=== PATIENT | male | born 1975 | race American Indian/Alaskan Native ===

== ENCOUNTER 2017-01-11 11:13 | Emergency (ER) | payer MEDICAID ==
[2017-01-11 11:13] VITALS: BMI 28.1
--- NOTE | 2017-01-11 12:54 | C.PDOC ---
History Of Present Illness 41 y/o male presents to ED with complaints of depressive feeling and stating he sniffed heroin yesterday and his head has been bothering him. Patient also reports drinking ETOH today and while walking in [place] felt "like he was going to have a seizure", but is unclear if he fell or not. Patient compliant with seizure medication. Patient denies Suicidal or Homicidal ideation, denies ah. No other complaints at this time Time Seen by Provider: 01/11/17 12:13 Chief Complaint (Nursing): Substance Abuse History Per: Patient History/Exam Limitations: no limitations Onset/Duration Of Symptoms: Days Past Medical History Vital Signs: Last Vital Signs Temp 98.3 F 01/11/17 16:45 Pulse 80 01/11/17 16:45 Resp 18 01/11/17 16:45 BP 117/76 01/11/17 16:45 Pulse Ox 95 01/11/17 19:03 - Medical History PMH: Anxiety, Bipolar Disorder, Depression, Personality Disorder, Pneumonia, Schizophrenia, Seizures - [facility] Procedures ALCOHOL DETOXIFICATION (10/23/14) CENTRAL VENOUS CATHETER PLACEMENT WITH GUIDANCE (08/27/14) CLOSURE SKIN & SUBCUTANEOUS NEC (01/02/14) DPT ADMINISTRATION (08/11/14) INDIVID PSYCHOTHERAP NEC (12/17/14) INJECT/INFUSE NEC (05/27/13) OTHER GROUP THERAPY (04/04/14) PSYCHIAT DRUG THERAP NEC (12/17/14) VENOUS PUNCTURE NEC (05/27/13) Family History: States: Unknown Family Hx - Social History Hx Tobacco Use: Yes Hx Alcohol Use: Yes Hx Substance Use: Yes - Immunization History Hx Tetanus Toxoid Vaccination: No Hx Influenza Vaccination: Yes (states ''in [place]'') Hx Pneumococcal Vaccination: No Review Of Systems Constitutional: Negative for: Fever, Chills, Weakness Gastrointestinal: Negative for: Nausea, Vomiting Neurological: Negative for: Weakness, Headache, Dizziness Psych: Negative for: Anxiety, Suicidal ideation Physical Exam - Physical Exam Appears: Non-toxic, No Acute Distress Skin: Normal Color, Warm Head: Atraumatic, Normacephalic Eye(s): bilateral: Normal Inspection, PERRL, EOMI Nose: Normal Oral Mucosa: Moist Neck: Normal ROM, No Midline Cervical Tenderness Chest: Symmetrical, No Deformity Cardiovascular: Rhythm Regular, No Murmur Respiratory: Normal Breath Sounds, No Rales, No Rhonchi, No Wheezing Gastrointestinal/Abdominal: Soft, No Tenderness, No Guarding, No Rebound Extremity: Normal ROM, Other (Scar on lower extremities noted, pt states "he used to cut himself") Neurological/Psych: Oriented x3, Normal Speech, Normal Cognition ED Course And Treatment O2 Sat by Pulse Oximetry: 95 - CT Scan/US Head CT/US Interpretation: FINDINGS: HEMORRHAGE: No intracranial hemorrhage. BRAIN : No mass effect or edema. 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 No change from 04/08/2015. 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 No change from prior CT. No evidence of acute infarct. No intracranial mass. VENTRICLES: No hydrocephalus. Cavum septum pellucidum. Mild ex vacuo dilatation atrium of left lateral ventricle, unchanged. No midline shift. CALVARIUM: Unremarkable. PARANASAL SINUSES: Unremarkable as visualized. No significant inflammatory changes. MASTOID AIR CELLS: Unremarkable as visualized. No inflammatory changes. OTHER FINDINGS: None. IMPRESSION: No intracranial mass, hemorrhage or evidence of acute infarct. 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 Possible old infarcts. Progress Note: pt easily aroused, now sts he hneeds tegretol. will give dose and d/c. pt with clear speech and steady gait. Medical Decision Making Medical Decision Makin:51pm CT scan head Check seizure levels Observation for Sobriety 401 pm pt resting comfortably, easily aroused, sts he feels much better. no seizure activity noted. meds levels sent out, will not keep atient for results will d/c. Disposition Counseled Patient/Family Regarding: Diagnosis, Need For Followup - Disposition Referrals: [facility] [Outside] [facility] [Outside] Disposition: HOME/ ROUTINE Disposition Time: 16:26 Condition: IMPROVED Additional Instructions: Follow up in Medical clinic as soon as possible. Take all medications as prescribed. Recommend detox to get off heroin and alcohol. Return to ER for any worsening symptoms. Instructions: Polysubstance Abuse (ED) Forms: General Discharge Instructions - Clinical Impression Clinical Impression: Drug abuse - PA / COMPLAINTS COORDINATOR / Resident Statement MD/DO has reviewed & agrees with the documentation as recorded. - Scribe Statement The provider has reviewed the documentation as recorded by the Renayibdonte Horn All medical record entries made by the Scribe were at my direction and personally dictated by me. I have reviewed the chart and agree that the record accurately reflects my personal performance of the history, physical exam, medical decision making, and the department course for this patient. I have also personally directed, reviewed, and agree with the discharge instructions and disposition.
--- NOTE | 2017-01-11 14:06 | CT ---
PROCEDURE: CT HEAD WITHOUT CONTRAST. HISTORY: headache COMPARISON: None available. TECHNIQUE: Axial computed tomography images were obtained through the head/brain without intravenous contrast. Radiation dose: Total exam DLP = 928.23 mGy-cm. This CT exam was performed using one or more of the following dose reduction techniques: Automated exposure control, adjustment of the mA and/or kV according to patient size, and/or use of iterative reconstruction technique. FINDINGS: HEMORRHAGE: No intracranial hemorrhage. BRAIN: No mass effect or edema. 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 No change from 04/08/2015. 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 No change from prior CT. No evidence of acute infarct. No intracranial mass. VENTRICLES: No hydrocephalus. Cavum septum pellucidum. Mild ex vacuo dilatation atrium of left lateral ventricle, unchanged. No midline shift. CALVARIUM: Unremarkable. PARANASAL SINUSES: Unremarkable as visualized. No significant inflammatory changes. MASTOID AIR CELLS: Unremarkable as visualized. No inflammatory changes. OTHER FINDINGS: None. IMPRESSION: No intracranial mass, hemorrhage or evidence of acute infarct. 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 Possible old infarcts.
[2017-01-11 16:45] VITALS: BP 117/76; PULSE 80; RESP 18; TEMP 98.3
[2017-01-11 19:03] VITALS: O2SAT 95
== END 2017-01-11 16:50 | disposition home or self-care (01) ==
LOC: C.ER 11:13
DX: F11.10 Opioid abuse, uncomplicated (principal)

== ENCOUNTER 2017-01-27 18:36 | Emergency (ER) | payer MEDICAID ==
[2017-01-27 18:38] VITALS: BMI 28.1
[2017-01-27 18:44] VITALS: PULSE 85; RESP 18; TEMP 98.4
[2017-01-27 19:33] VITALS: O2SAT 96
--- NOTE | 2017-01-27 19:53 | C.PDOC ---
History Of Present Illness 41 y/o male pmhx HTN, seizures presents to the ED demanding refills of medications. Denies chest pain, SOB, vomiting, headache, seizure, or any other complaints. Time Seen by Provider: 01/27/17 19:09 Chief Complaint (Nursing): Med Refill History Per: Patient History/Exam Limitations: no limitations Severity: None Recent travel outside of the [place]: No Past Medical History Reviewed: Historical Data, Nursing Documentation, Vital Signs Vital Signs: Last Vital Signs Temp 98.4 F 01/27/17 18:41 Pulse 85 01/27/17 18:41 Resp 18 01/27/17 18:41 BP 142/78 01/27/17 19:57 Pulse Ox 96 01/27/17 22:10 - Medical History PMH: Anxiety, Bipolar Disorder, Depression, Personality Disorder, Pneumonia, Schizophrenia, Seizures - [facility] Procedures ALCOHOL DETOXIFICATION (10/23/14) CENTRAL VENOUS CATHETER PLACEMENT WITH GUIDANCE (08/27/14) CLOSURE SKIN & SUBCUTANEOUS NEC (01/02/14) DPT ADMINISTRATION (08/11/14) INDIVID PSYCHOTHERAP NEC (12/17/14) INJECT/INFUSE NEC (05/27/13) OTHER GROUP THERAPY (04/04/14) PSYCHIAT DRUG THERAP NEC (12/17/14) VENOUS PUNCTURE NEC (05/27/13) Family History: States: Unknown Family Hx - Social History Hx Tobacco Use: Yes Hx Alcohol Use: Yes Hx Substance Use: Yes - Immunization History Hx Tetanus Toxoid Vaccination: No Hx Influenza Vaccination: Yes (states ''in [place]'') Hx Pneumococcal Vaccination: No Review Of Systems Except As Marked, All Systems Reviewed And Found Negative. Constitutional: Negative for: Fever Cardiovascular: Negative for: Chest Pain Respiratory: Negative for: Shortness of Breath Gastrointestinal: Negative for: Vomiting Neurological: Negative for: Headache Physical Exam - Physical Exam Appears: Non-toxic, No Acute Distress Skin: Warm, Dry, No Rash Head: Atraumatic, Normacephalic Neck: Normal, Normal ROM, Supple Chest: Symmetrical Cardiovascular: Rhythm Regular, No Murmur Respiratory: Normal Breath Sounds, No Rales, No Rhonchi, No Wheezing Extremity: Normal ROM Extremity: Bilateral: Atraumatic Neurological/Psych: Oriented x3, Normal Speech ED Course And Treatment O2 Sat by Pulse Oximetry: 96 (room air) Pulse Ox Interpretation: Normal Progress Note: Given dose tegratol and norvasc in ED. Instructed patient to follow up in clinic /PMD for medication management. Medical Decision Making Medical Decision Making: pt demanding refills of multiple medications; pt given a dose of tegretol and norvasc in ed and may go to clinic in morning for refills. Disposition Counseled Patient/Family Regarding: Diagnosis, Need For Followup - Disposition Referrals: [facility] [Outside] [facility] [Outside] Disposition: HOME/ ROUTINE Disposition Time: 19:53 Condition: STABLE Additional Instructions: Follow up in medical clinic tomorrow for further evaluation of your medication needs. Forms: General Discharge Instructions - Clinical Impression Clinical Impression: Review of medication, Hypertension, History of seizure - PA / HR GENERALIST / Resident Statement MD/DO has reviewed & agrees with the documentation as recorded. - Scribe Statement The provider has reviewed the documentation as recorded by the Renayibdonte Marinelli All medical record entries made by the Mickey were at my direction and personally dictated by me. I have reviewed the chart and agree that the record accurately reflects my personal performance of the history, physical exam, medical decision making, and the department course for this patient. I have also personally directed, reviewed, and agree with the discharge instructions and disposition.
[2017-01-27 19:58] VITALS: BP 142/78
== END 2017-01-27 19:57 | disposition home or self-care (01) ==
LOC: C.ER 18:36
DX: R56.9 Unspecified convulsions (principal); I10 Essential (primary) hypertension

== ENCOUNTER 2017-01-28 13:09 | Emergency (ER) | payer MEDICAID ==
[2017-01-28 13:09] VITALS: BMI 28.1
[2017-01-28 13:12] VITALS: BP 130/84; PULSE 77; RESP 16; TEMP 98.1; O2SAT 95
--- NOTE | 2017-01-28 14:24 | C.PDOC ---
History Of Present Illness 41 yr old male presents to the ER requesting refills of his seizure and blood pressure medicine. patient states he worried he might have another seizure or something else might happen due to his blood pressure. Patient is unsure to when he ran out of his medicine. Also states he was seen 3 weeks ago for a possible seizure. Patient reports he has an appointment at the clinic tomorrow morning at 9am. Denies fever, chills, chest pain, SOB, nausea, vomiting, abdominal pain, headache, dizziness, weakness or numbness. Time Seen by Provider: 01/28/17 13:33 Chief Complaint (Nursing): Med Refill History Per: Patient History/Exam Limitations: no limitations Onset/Duration Of Symptoms: Unknown Past Medical History Reviewed: Historical Data, Nursing Documentation, Vital Signs Vital Signs: Last Vital Signs Temp 98.1 F 01/28/17 13:11 Pulse 77 01/28/17 13:11 Resp 16 01/28/17 13:11 BP 130/84 01/28/17 13:11 Pulse Ox 95 01/28/17 15:15 - Medical History PMH: Anxiety, Bipolar Disorder, Depression, HTN, Personality Disorder, Pneumonia , Schizophrenia, Seizures - [facility] Procedures ALCOHOL DETOXIFICATION (10/23/14) CENTRAL VENOUS CATHETER PLACEMENT WITH GUIDANCE (08/27/14) CLOSURE SKIN & SUBCUTANEOUS NEC (01/02/14) DPT ADMINISTRATION (08/11/14) INDIVID PSYCHOTHERAP NEC (12/17/14) INJECT/INFUSE NEC (05/27/13) OTHER GROUP THERAPY (04/04/14) PSYCHIAT DRUG THERAP NEC (12/17/14) VENOUS PUNCTURE NEC (05/27/13) Family History: States: No Known Family Hx - Social History Hx Tobacco Use: Yes Hx Alcohol Use: Yes (denies) Hx Substance Use: Yes (denies) - Immunization History Hx Tetanus Toxoid Vaccination: No Hx Influenza Vaccination: Yes (states ''in [place]'') Hx Pneumococcal Vaccination: No Review Of Systems Except As Marked, All Systems Reviewed And Found Negative. Constitutional: Negative for: Fever, Chills Cardiovascular: Negative for: Chest Pain Respiratory: Negative for: Shortness of Breath Gastrointestinal: Negative for: Nausea, Vomiting, Abdominal Pain Neurological: Negative for: Weakness, Numbness, Headache, Dizziness Physical Exam - Physical Exam Appears: Well, Non-toxic, No Acute Distress Skin: Warm, Dry, No Rash Head: Atraumatic, Normacephalic Cardiovascular: Rhythm Regular, No Murmur Respiratory: Normal Breath Sounds, No Rales, No Rhonchi, No Stridor, No Wheezing Gastrointestinal/Abdominal: Soft, No Tenderness Extremity: Normal ROM, No Swelling Neurological/Psych: Oriented x3, Normal Speech, Normal Motor ED Course And Treatment O2 Sat by Pulse Oximetry: 95 Medical Decision Making Medical Decision Making: PLAN: * Phenobarbital PO * Tegretol PO * Lisinopril PO Disposition Counseled Patient/Family Regarding: Need For Followup - Disposition Referrals: [facility] [Outside] Disposition: HOME/ ROUTINE Disposition Time: 14:23 Condition: GOOD Additional Instructions: Keep apt with the clinic tomorrow Forms: General Discharge Instructions - Clinical Impression Clinical Impression: Medication refill, History of seizure - Scribe Statement The provider has reviewed the documentation as recorded by the Renayibe Vonnie Gallego Provider Attestation: All medical record entries made by the Scribe were at my direction and personally dictated by me. I have reviewed the chart and agree that the record accurately reflects my personal performance of the history, physical exam, medical decision making, and the department course for this patient. I have also personally directed, reviewed, and agree with the discharge instructions and disposition.
== END 2017-01-28 14:49 | disposition home or self-care (01) ==
LOC: C.ER 13:09
DX: Z76.0 Encounter for issue of repeat prescription (principal); R56.9 Unspecified convulsions

== ENCOUNTER 2017-01-29 16:00 | Emergency (ER) | payer MEDICAID ==
[2017-01-29 16:11] VITALS: TEMP 97.7
[2017-01-29] MEDS ORDERED: carBAMazepine Chew Tab 100 MG Chew Tab PO STA (16:36)
--- NOTE | 2017-01-29 16:42 | C.PDOC ---
Time Seen by Provider: 01/29/17 16:14 Chief Complaint (Nursing): Medical Clearance Past Medical History Vital Signs: Last Vital Signs Temp 97.7 F 01/29/17 16:22 Pulse 54 L 01/29/17 16:22 Resp 18 01/29/17 16:22 BP 164/99 H 01/29/17 16:22 Pulse Ox 100 01/29/17 16:22 - Medical History PMH: Anxiety, Bipolar Disorder, Depression, HTN, Personality Disorder, Pneumonia , Schizophrenia, Seizures - [facility] Procedures ALCOHOL DETOXIFICATION (10/23/14) CENTRAL VENOUS CATHETER PLACEMENT WITH GUIDANCE (08/27/14) CLOSURE SKIN & SUBCUTANEOUS NEC (01/02/14) DPT ADMINISTRATION (08/11/14) INDIVID PSYCHOTHERAP NEC (12/17/14) INJECT/INFUSE NEC (05/27/13) OTHER GROUP THERAPY (04/04/14) PSYCHIAT DRUG THERAP NEC (12/17/14) VENOUS PUNCTURE NEC (05/27/13) Family History: States: Unknown Family Hx - Social History Hx Tobacco Use: Yes Hx Alcohol Use: Yes (denies) Hx Substance Use: Yes (denies) - Immunization History Hx Tetanus Toxoid Vaccination: No Hx Influenza Vaccination: Yes (states ''in [place]'') Hx Pneumococcal Vaccination: No ED Course And Treatment O2 Sat by Pulse Oximetry: 100 Progress - Data Reviewed Data Reviewed: Old records Disposition Counseled Patient/Family Regarding: Diagnosis, Need For Followup - Disposition Referrals: [facility] [Outside] [facility] [Outside] Disposition: HOME/ ROUTINE Disposition Time: 16:41 Condition: GOOD Instructions: Medicine Refill (ED) - Clinical Impression Clinical Impression: Medication refill
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
[2017-01-29 17:06] VITALS: BP 142/82; PULSE 69; RESP 17; O2SAT 98
== END 2017-01-29 17:07 | disposition home or self-care (01) ==
LOC: C.ER 16:00
DX: Z76.0 Encounter for issue of repeat prescription (principal)

== ENCOUNTER 2017-02-22 21:50 | Emergency (ER) | payer MEDICAID ==
[2017-02-22 21:50] VITALS: BMI 27.4
[2017-02-22 22:04] VITALS: RESP 16
[2017-02-23 01:51] LABS: BASO % 0.5 % (0.0-2.0); EOS # 0.1 K/uL (0.0-0.7); EOS % 2.4 % (0.0-4.0); HEMOGLOBIN 13.1 g/dL (12.0-18.0); LYMPH # 2.2 K/uL (1.0-4.3); LYMPH % 39.6 % (20.0-40.0); MEAN CELL VOLUME 90.3 fL (80.0-94.0); MEAN CORPUSCULAR HEMOGLOBIN 29.4 pg (27.0-31.0); MEAN CORPUSCULAR HGB CONC 32.5 g/dL (33.0-37.0); MEAN PLATELET VOLUME 8.9 fL (7.2-11.7); MONO # 0.6 K/uL (0.0-0.8); MONO % 10.3 % (0.0-10.0); NEUT # 2.6 K/uL (1.8-7.0); NEUT % 47.2 % (50.0-75.0); NRBC % 0.1 % (0.0-2.0); RBC 4.47 Mil/uL (4.40-5.90); WHITE BLOOD COUNT 5.6 K/uL (4.8-10.8)
[2017-02-23 02:00] LABS: URINE BILIRUBIN NEGATIVE (NEGATIVE); URINE BLOOD NEGATIVE (NEGATIVE); URINE CLARITY Clear (Clear); URINE COLOR Yellow (YELLOW); URINE GLUCOSE (UA) NORMAL (Normal); URINE HYALINE CAST 0-2 /lpf (0-2); URINE LEUKOCYTE ESTERASE NEG Leu/uL (Negative); URINE NITRATE NEGATIVE (NEGATIVE); URINE PROTEIN NEGATIVE (NEGATIVE); URINE UROBILINOGEN NORMAL mg/dL (0.2-1.0)
[2017-02-23 02:03] LABS: ALBUMIN 4.3 g/dL (3.5-5.0)
[2017-02-23 02:06] LABS: ALB/GLOB RATIO 1.2 (1.0-2.1); ALT/SGPT 24 U/L (21-72); AST/SGOT 23 U/L (17-59); BLOOD UREA NITROGEN 8 mg/dL (9-20); GFR AFRICAN-AMERICAN > 60; GFR NON-AFRICAN AMERICAN > 60
[2017-02-23 02:07] LABS: CALCIUM 8.6 mg/dl (8.6-10.4)
[2017-02-23 02:08] LABS: BENZODIAZEPINES, UR NEGATIVE (NEGATIVE)
[2017-02-23 02:13] LABS: PHENCYCLIDINE, UR NEGATIVE (NEGATIVE)
[2017-02-23 02:18] LABS: BARBITURATES, UR POSITIVE (NEGATIVE); OPIATES, UR POSITIVE (NEGATIVE)
--- NOTE | 2017-02-23 05:13 | C.PDOC ---
History Of Present Illness 41 year old male presents to the ED with complaints of depression and anxiety, seeking psychiatric evaluation and requesting detox. Patient admits to heroin abuse and he recently quit but restarted today. He denies any physical complaints at this time. Time Seen by Provider: 02/22/17 22:13 Chief Complaint (Nursing): Psychiatric Evaluation History Per: Patient History/Exam Limitations: no limitations Onset/Duration Of Symptoms: Hrs Current Symptoms Are (Timing): Still Present Suicide/Self Injury Attempted (Context): None Associated Symptoms: Anxiety, Depression. denies: Suicidal Thoughts, Suicidal Plan Involuntary Hold By: None Recent travel outside of the [place]: No Past Medical History Reviewed: Historical Data, Nursing Documentation, Vital Signs Vital Signs: Last Vital Signs Temp 97.6 F 02/23/17 05:17 Pulse 59 L 02/23/17 05:17 Resp 16 02/23/17 05:17 BP 130/86 02/23/17 05:17 Pulse Ox 98 02/23/17 05:17 - Medical History PMH: Anxiety, Bipolar Disorder, Depression, HTN, Personality Disorder, Pneumonia , Schizophrenia, Seizures - [facility] Procedures ALCOHOL DETOXIFICATION (10/23/14) CENTRAL VENOUS CATHETER PLACEMENT WITH GUIDANCE (08/27/14) CLOSURE SKIN & SUBCUTANEOUS NEC (01/02/14) DPT ADMINISTRATION (08/11/14) INDIVID PSYCHOTHERAP NEC (12/17/14) INJECT/INFUSE NEC (05/27/13) OTHER GROUP THERAPY (04/04/14) PSYCHIAT DRUG THERAP NEC (12/17/14) VENOUS PUNCTURE NEC (05/27/13) Family History: States: Unknown Family Hx - Social History Hx Tobacco Use: Yes Hx Alcohol Use: Yes Hx Substance Use: Yes (last use at 1700 today) - Immunization History Hx Tetanus Toxoid Vaccination: No Hx Influenza Vaccination: Yes (states ''in [place]'') Hx Pneumococcal Vaccination: No Review Of Systems Constitutional: Negative for: Fever, Chills Cardiovascular: Negative for: Chest Pain, Palpitations Respiratory: Negative for: Cough, Shortness of Breath Gastrointestinal: Negative for: Nausea, Vomiting, Abdominal Pain, Diarrhea Neurological: Negative for: Headache Psych: Positive for: Anxiety, Depression. Negative for: Suicidal ideation Physical Exam - Physical Exam Appears: Non-toxic, No Acute Distress Skin: Warm, Dry Head: Atraumatic Eye(s): bilateral: Normal Inspection, PERRL, EOMI Oral Mucosa: Moist Neck: Supple Chest: Symmetrical, No Deformity Cardiovascular: Rhythm Regular Respiratory: No Rales, No Rhonchi, No Stridor, No Wheezing Gastrointestinal/Abdominal: Soft, No Tenderness, No Distention, No Guarding, No Rebound Extremity: Normal ROM, No Tenderness Neurological/Psych: Oriented x3 ED Course And Treatment - Laboratory Results Result Diagrams: 02/23/17 01:40 02/23/17 01:40 Lab Interpretation: Abnormal (tox + opiates, Stefany's (phenobarb)) O2 Sat by Pulse Oximetry: 96 (room air ) Pulse Ox Interpretation: Normal Medical Decision Making Medical Decision Making: chronic heroine abuse, no detox beds available malingering- many recent and local ED evals for same. Disposition Doctor Will See Patient In The: Office Counseled Patient/Family Regarding: Studies Performed, Diagnosis - Disposition Referrals: [facility] [Outside] [facility] [Outside] [facility] [Outside] Disposition: HOME/ ROUTINE Disposition Time: 05:12 Condition: GOOD Additional Instructions: seek heroine detox programs. Call for availability. Instructions: Narcotic Abuse (ED) - Clinical Impression Clinical Impression: Heroin abuse - Scribe Statement The provider has reviewed the documentation as recorded by the Scribe Judie Parisi All medical record entries made by the Scribe were at my direction and personally dictated by me. I have reviewed the chart and agree that the record accurately reflects my personal performance of the history, physical exam, medical decision making, and the department course for this patient. I have also personally directed, reviewed, and agree with the discharge instructions and disposition.
[2017-02-23 05:17] VITALS: BP 130/86; PULSE 59; TEMP 97.6
[2017-02-23 05:31] VITALS: O2SAT 96
== END 2017-02-23 05:36 | disposition home or self-care (01) ==
LOC: C.ER 21:50
DX: F11.10 Opioid abuse, uncomplicated (principal)

== ENCOUNTER 2017-02-27 16:47 | Inpatient (IN) | payer MEDICAID ==
[2017-02-27 16:47] VITALS: BMI 27.4
--- NOTE | 2017-02-27 17:33 | C.PDOC ---
History Of Present Illness 41-year-old male, presents to the emergency department requesting psychiatric evaluation. Patient has a Hx of IV heroin abuse and depression. States he has been experiencing increased depression over the past few days, and he started "cutting again." Patient denies nausea/vomiting. States he used two bags of Heroin today. Time Seen by Provider: 02/27/17 16:59 Chief Complaint (Nursing): Substance Abuse History Per: Patient History/Exam Limitations: no limitations Onset/Duration Of Symptoms: Days Current Symptoms Are (Timing): Still Present Past Medical History Reviewed: Historical Data, Nursing Documentation, Vital Signs Vital Signs: Last Vital Signs Temp 100.1 F H 02/27/17 16:57 Pulse 104 H 02/27/17 16:57 Resp 18 02/27/17 16:57 BP 109/64 02/27/17 16:57 Pulse Ox 93 L 02/27/17 18:03 - Medical History PMH: Anxiety, Bipolar Disorder, Depression, HTN, Personality Disorder, Pneumonia , Schizophrenia, Seizures - [facility] Procedures ALCOHOL DETOXIFICATION (10/23/14) CENTRAL VENOUS CATHETER PLACEMENT WITH GUIDANCE (08/27/14) CLOSURE SKIN & SUBCUTANEOUS NEC (01/02/14) DPT ADMINISTRATION (08/11/14) INDIVID PSYCHOTHERAP NEC (12/17/14) INJECT/INFUSE NEC (05/27/13) OTHER GROUP THERAPY (04/04/14) PSYCHIAT DRUG THERAP NEC (12/17/14) VENOUS PUNCTURE NEC (05/27/13) Family History: States: No Known Family Hx - Social History Hx Tobacco Use: Yes Hx Alcohol Use: Yes Hx Substance Use: Yes (HEROIN, IV DAILY) - Immunization History Hx Tetanus Toxoid Vaccination: No Hx Influenza Vaccination: Yes (states ''in [place]'') Hx Pneumococcal Vaccination: No Review Of Systems Except As Marked, All Systems Reviewed And Found Negative. Constitutional: Negative for: Fever, Chills Cardiovascular: Negative for: Chest Pain, Palpitations Respiratory: Negative for: Shortness of Breath Gastrointestinal: Negative for: Nausea, Vomiting Musculoskeletal: Negative for: Back Pain Neurological: Negative for: Weakness, Numbness Psych: Positive for: Depression, Suicidal ideation Physical Exam - Physical Exam Appears: Non-toxic, No Acute Distress Skin: Warm, Dry, No Rash, Other (scars to B/L anterior forearms.) Eye(s): bilateral: Normal Inspection, PERRL Nose: Normal Oral Mucosa: Moist Lips: Normal Appearing Neck: Normal ROM Cardiovascular: Rhythm Regular, No Murmur Respiratory: Normal Breath Sounds, No Accessory Muscle Use Extremity: Normal ROM Neurological/Psych: Oriented x3, Normal Speech ED Course And Treatment - Laboratory Results Result Diagrams: 02/27/17 17:46 02/27/17 17:46 Lab Interpretation: No Acute Changes O2 Sat by Pulse Oximetry: 93 Disposition - Disposition Disposition Time: 00:54 Condition: STABLE - Clinical Impression Clinical Impression: Substance abuse, Depression - Scribe Statement The provider has reviewed the documentation as recorded by the Scribe (Nima Novak) All medical record entries made by the Scribe were at my direction and personally dictated by me. I have reviewed the chart and agree that the record accurately reflects my personal performance of the history, physical exam, medical decision making, and the department course for this patient. I have also personally directed, reviewed, and agree with the discharge instructions and disposition. Physician Patient Turnover Patient Signed Over To: Jg Singh Handoff Comments: pending UDS and crisis evaluation.
[2017-02-27 17:50] LABS: HEMOGLOBIN 12.7 g/dL (12.0-18.0); LYMPH # 1.4 K/uL (1.0-4.3); MONO # 0.5 K/uL (0.0-0.8)
[2017-02-27 17:57] LABS: ALBUMIN 4.3 g/dL (3.5-5.0)
[2017-02-27 18:00] LABS: ALB/GLOB RATIO 1.2 (1.0-2.1); ALT/SGPT 25 U/L (21-72); AST/SGOT 24 U/L (17-59); BLOOD UREA NITROGEN 13 mg/dL (9-20); GFR AFRICAN-AMERICAN 57; GFR NON-AFRICAN AMERICAN 47
[2017-02-27 18:36] LABS: BASO # 0.1 K/uL (0.0-0.2); BASO % 0.9 % (0.0-2.0); EOS # 0.1 K/uL (0.0-0.7); LYMPH % 19.2 % (20.0-40.0); MEAN CELL VOLUME 88.9 fL (80.0-94.0); MEAN CORPUSCULAR HEMOGLOBIN 29.4 pg (27.0-31.0); MEAN PLATELET VOLUME 9.3 fL (7.2-11.7); MONO % 6.7 % (0.0-10.0); NEUT # 5.1 K/uL (1.8-7.0); NEUT % 71.2 % (50.0-75.0); RBC 4.33 Mil/uL (4.40-5.90); WHITE BLOOD COUNT 7.1 K/uL (4.8-10.8)
[2017-02-28 01:50] LABS: SQUAMOUS EPITHIAL < 1 /hpf (0-5); URINE BILIRUBIN NEGATIVE (NEGATIVE); URINE BLOOD 3+ (NEGATIVE); URINE CLARITY Hazy (Clear); URINE COLOR Amber (YELLOW); URINE GLUCOSE (UA) NORMAL (Normal); URINE HYALINE CAST 0-2 /lpf (0-2); URINE LEUKOCYTE ESTERASE NEG Leu/uL (Negative); URINE NITRATE NEGATIVE (NEGATIVE); URINE PROTEIN 2+ mg/dL (NEGATIVE)
[2017-02-28 01:53] LABS: BENZODIAZEPINES, UR NEGATIVE (NEGATIVE)
[2017-02-28 01:56] LABS: PHENCYCLIDINE, UR NEGATIVE (NEGATIVE)
[2017-02-28 02:03] LABS: BARBITURATES, UR POSITIVE (NEGATIVE); OPIATES, UR POSITIVE (NEGATIVE)
[2017-02-28 02:42] VITALS: O2SAT 100
--- NOTE | 2017-02-28 13:54 | PCM.PSYCH ---
Initial Psychiatric Evaluation - Initial Psychiatric Evaluation Type of Admission: Voluntary Legal Status: Capacity Chief Complaint (in patient's own words): I was feeling depressed and suicidal.' History of Present Illness and Precipitating Events: Pt is a 41 year old male who was brought in by EMS for depression, and suicidal ideation with plans to cut himself. Patient remained disorganized and internally preoccupied throughout the interview. He remained a poor historian. He was superficially cooperative but guarded about the details. He states that he has a history of cutting, and "feels like doing it again." Pt is unable to articulate the last episode of cutting. Pt states he recently moved back to [place] from [place], [place], to see his four children "who want nothing to do with me," and residing with his cousin. Pt states he has a history of schizophrenia and is unable to state when his last hospitalization was. Patient appeared to have severe thought blocking and he appeared disheveled and unkempt. Patient reports depressed mood, feelings of hopelessness and helplessness. At times he became irritable and agitated during the interview, stating "I don't have a drug problem, I'm not a drug addict," but reports using heroin and alcohol yesterday. Pt states he sniffed 1 bag of heroin and drank 1 can of beer. patient reports history of voices telling him to kill himself in the past and reports history of seeing shadows. However remained confused about hearing any voices now due to the thought blocking. He remained delusional and paranoid throughout the interview. PMH History of seizures, HTN Current Medications: Active Medications Generic Name Dose Route Start Last Admin Trade Name Nayan PRN Reason Stop Dose Admin Amlodipine Besylate 5 mg 02/28/17 14:00 Norvasc PO DAILY [facility] Carbamazepine 200 mg 02/28/17 14:00 Tegretol PO Q12 [facility] Furosemide 20 mg 02/28/17 14:00 Lasix PO DAILY [facility] Home Med 64.8 mg 02/28/17 18:00 Phenobarbital [Phenobarbital Tab] PO BID [facility] Lisinopril 20 mg 02/28/17 14:00 Zestril PO DAILY [facility] Past Psychiatric History - Past Psychiatric History Previous Treatment History: Inpatient Pertinent Medical Hx (Current Medical&Sleep Prob, Allergies): Allergies Allergy/AdvReac Type Severity Reaction Status Date / Time haloperidol [From Haldol] AdvReac NAUSEA Verified 02/22/17 22:04 Furosemide [Lasix] 20 mg PO DAILY #23 01/30/17 Lisinopril [Zestril] 20 mg PO DAILY #23 01/30/17 Phenobarbital [PHENobarbital Tab] 64.8 mg PO BID #46 01/30/17 amLODIPine [Norvasc] 5 mg PO DAILY #25 01/30/17 carBAMazepine [TEGretol] 200 mg PO Q12 #46 01/30/17 Review of Systems - Review of Systems All systems: reviewed and no additional remarkable complaints except - Psychiatric Psychiatric: Anxiety, Depression, Hopelessness, Irritability, Paranoia, Suicidal Ideation Mental Status Examination - Personal Presentation Personal Presentation: Looks older than stated age - Affect Affect: Constricted, Depressed - Motor Activity Motor Activity: Psychomotor Agitation - Reliability in Providing Information Reliability in Providing Information: Poor, due to alteration in thoughts, Poor , due to altered mood - Speech Speech: Disorganized - Mood Mood: Depressed, Anxious - Formal Thought Process Formal Thought Process: Hallucinations, Delusions, Paranoia, Loosening of associations - Hallucinations/Delusions Delusions: Persecution - Obsessions/Compulsions Obsessions: No Compulsions: No - Cognitive Functions Orientation: Person, Place, Situation, Time Sensorium: Alert Attention/Concentration: Attentive Abstract Thinking: [place] Estimate of Intelligence: Below average Judgement: Imparied, as evidence by: Poor judgement, Imparied, as evidence by: Lack of insight into illness - Risk Risk: Suicidal, Diminished functioning - Strength & Assets Inventory Strength & Assets Inventory: Family support DSM 5 DX - DSM 5 DSM 5 Diagnosis: Schizoaffective disorder depressed type Opiate use disorder moderate - Recommended/Plan of Treatment Treatment Recommendations and Plan of Treatment: Schizoaffective disorder depressed type CBT Psychoeducation Supportive therapy, group therapy, individual therapy Prolixin 5 mg by mouth daily at bedtime Zoloft 50 mg daily Trazodone 50 mg by mouth daily at bedtime Opioid use disorder severe CBT Psychoeducation Supportive therapy, individual therapy Use MD for abstinence HTN Continue prescribed medications (Amlodipine, Lasix, Lisinopril) monitor signs and symptoms H/O Seizures Continue prescribed medications (Carbamazapine 200 mg by mouth twice a day) monitor signs and symptoms - Smoking Cessation Smoking Cessation Initiated: No
[2017-03-01 08:21] VITALS: RESP 18
--- NOTE | 2017-03-01 10:38 | PCM.PYCHPN ---
Psychiatric Progress Note - Psychiatric Progress Note Patient seen today, length of contact: 17 min Patient Chief Complaint: I m feeling better.' Problems Identified/Issues Discussed: Patient seen and evaluated, chart reviewed and discussed with the nurse. Patient remained irritable and agitated. He appeared somewhat disorganized and remained internally preoccupied to get discharged. He continued pacing back and forth in the hallways. He appeared to have poor insight and poor judgment. He was yelling and cursing at the staff and denied any feelings of hopelessness and helplessness. He also denied any SI/HI. He is taking medication and denied any side effects. Supportive therapy and psychoeducation were given. Medication Change: Yes (start depakote) Medical Record Reviewed: Yes Mental Status Examination - Cognitive Function Orientation: Person, Place, Situation, Time Memory: Intact Attention: Poor Concentration: Poor Association: Loose Fund of Knowledge: Poor - Mood Mood: Anxious - Affect Affect: Broad - Speech Speech: Pressured - Formal Thought Process Formal Thought Process: Paranoia, Loosening of associations - Suicidal Ideation Suicidal Ideation: No - Homicidal Ideation Homicidal Ideation: No Goal/Treatment Plan - Goal/Treatment Plan Need for Continued Stay: Discharge may exacerbated symptoms, Severe functional impairment Progress Toward Problem(s) and Goals/Treatment Plan: Schizoaffective disorder depressed type CBT Psychoeducation Supportive therapy, group therapy, individual therapy Prolixin 10 mg by mouth daily at bedtime Zoloft 50 mg daily Trazodone 50 mg by mouth daily at bedtime Klinopin 1 mg pO BID Carbamazapine 400 mg by mouth twice a day Opioid use disorder severe CBT Psychoeducation Supportive therapy, individual therapy Use OK for abstinence HTN Continue prescribed medications (Amlodipine, Lasix, Lisinopril) monitor signs and symptoms H/O Seizures Continue prescribed medications (Carbamazapine 400 mg by mouth twice a day) monitor signs and symptoms - Smoking Cessation Smoking Cessation Initiated: No
[2017-03-02 09:08] VITALS: BP 122/90; PULSE 67; TEMP 98.4
--- NOTE | 2017-03-02 09:34 | PCM.PYCHDC ---
Mental Status Examination - Mental Status Examination Orientation: Person, Place, Situation, Time Memory: Impaired Mood: Other (irate, labile a little) Affect: Other (labile, odd) Speech: Loud Attention: Poor Concentration: Poor Association: Loose Fund of Knowledge: Poor Formal Thought Process: Paranoia Suicidal Ideation: No Current Homicidal Ideation?: No Discharge Summary - Discharge Note Reason for Hospitalization: Acute psychosis Consultations:: List each consultation separately and include: 1. Reason for request. 2. Findings. 3. Follow-up Summary of Hospital Course include:: 1. Description of specific treatment plan utilized for patients during their course of treatmen. 2. Summarize the time- course for resolution of acute symptoms and/or regressed behaviors. 3. Describe issues identified and worked on during hospitalization. 4. Describe medication utilized. 5. Describe medical problems identified and treated. 6. Reassessment of suicide risk Summary of Hospital Course: The pt was admitted and started on treatment with psychotherapy, support, psychoeducation and medications. The pt attended some groups and activities, as well as milieu therapy. All the risks and benefits of medications are discussed and the patient understood and agreed. However, he remained with poor insight and demanded to leave a lot. The pt improved somewhat with the treatments provided. After care discussed with the patient. He only wanted to return to [place] and it is confirmed with his cousin Risks of leaving early discussed and he understood but insisted. - Final Diagnosis (DSM 5) Condition upon Discharge: IMPROVED DSM 5: Schizoaffective disorder mixed type Opioid use disorder moderate Disposition: HOME/ ROUTINE Follow-up Treatment Plan: Continue below medications after discharge. Follow after care plan as discussed. Use relapse prevention skills Return to ER or call 911 if suicidal, homicidal or symptoms relapse. Stay away from stress, alcohol and drugs. See primary doctor once a year. Prescriptions/Medication Reconciliation: amLODIPine [Norvasc] 5 mg PO DAILY #30 tab Benztropine [Cogentin] 1 mg PO BID #60 tab carBAMazepine [Tegretol] 400 mg PO Q12 #60 tab fluPHENAZine [Prolixin] 10 mg PO BID #60 tab Furosemide [Lasix] 20 mg PO DAILY #30 tab Lisinopril [Zestril] 20 mg PO DAILY #30 tab Phenobarbital [PHENobarbital Tab] 64.8 mg PO BID #60 tab Sertraline [Zoloft] 50 mg PO DAILY #30 tab traZODone [Desyrel] 50 mg PO HS #30 tab
== END 2017-03-02 10:40 | disposition home or self-care (01) | DRG 430 ==
LOC: C.ER 16:47 → C.5E 02-28 02:26
PROVIDERS: ADMIT Psychiatry & Neurology Psychiatry; ATTEND Psychiatry & Neurology Psychiatry
PROC: GZ3ZZZZ Medication Management (ICD-10-PCS; principal; 2017-02-28)
PROC: HZ89ZZZ Medication Management for Substance Abuse Treatment, Other Replacement Medication (ICD-10-PCS; 2017-02-28)
PROC: GZHZZZZ Group Psychotherapy (ICD-10-PCS; 2017-02-28)
PROC: GZ56ZZZ Individual Psychotherapy, Supportive (ICD-10-PCS; 2017-02-28)
DX: F25.1 Schizoaffective disorder, depressive type (principal); F11.10 Opioid abuse, uncomplicated; R45.851 Suicidal ideations; G40.909 Epilepsy, unspecified, not intractable, without status epilepticus; I10 Essential (primary) hypertension

== ENCOUNTER 2017-03-28 20:01 | Emergency (ER) | payer MEDICAID ==
[2017-03-28 20:02] VITALS: BMI 27.4
--- NOTE | 2017-03-28 21:34 | C.PDOC ---
History Of Present Illness A 41 y/o M c/o depression, anxiety. States he has thoughts of cutting himself. Admits to using heroin today. Denies any somatic complaints at this time. Time Seen by Provider: 03/28/17 21:33 Chief Complaint (Nursing): Psychiatric Evaluation History Per: Patient History/Exam Limitations: no limitations Onset/Duration Of Symptoms: Hrs Current Symptoms Are (Timing): Still Present Suicide/Self Injury Attempted (Context): None Modifying Factor(s): Other (Heroin) Severity: Mild Pain Scale Rating Of: 2 Associated Symptoms: Anxiety, Depression, Suicidal Thoughts. denies: Suicidal Plan Involuntary Hold By: None Recent travel outside of the [place]: No Additional History Per: Patient Past Medical History Reviewed: Historical Data, Nursing Documentation, Vital Signs Vital Signs: Last Vital Signs Temp 98.1 F 03/29/17 04:50 Pulse 56 L 03/29/17 04:50 Resp 16 03/29/17 04:50 BP 133/88 03/29/17 04:50 Pulse Ox 96 03/29/17 06:11 - Medical History PMH: Anxiety, Bipolar Disorder, Depression, HTN, Personality Disorder, Pneumonia , Schizophrenia, Seizures Denies: Diabetes, Hepatitis, HIV, Chronic Kidney Disease, Sexually Transmitted Disease - [facility] Procedures ALCOHOL DETOXIFICATION (10/23/14) CENTRAL VENOUS CATHETER PLACEMENT WITH GUIDANCE (08/27/14) CLOSURE SKIN & SUBCUTANEOUS NEC (01/02/14) DPT ADMINISTRATION (08/11/14) GROUP PSYCHOTHERAPY (02/28/17) INDIVID PSYCHOTHERAP NEC (12/17/14) INDIVIDUAL PSYCHOTHERAPY, SUPPORTIVE (02/28/17) INJECT/INFUSE NEC (05/27/13) MEDICATION MANAGEMENT (02/28/17) MEDS MGMT FOR SUBSTANCE ABUSE TREATMENT, OTH REPL MED (02/28/17) OTHER GROUP THERAPY (04/04/14) PSYCHIAT DRUG THERAP NEC (12/17/14) VENOUS PUNCTURE NEC (05/27/13) Family History: States: No Known Family Hx - Social History Hx Tobacco Use: Yes Hx Alcohol Use: Yes Hx Substance Use: Yes - Immunization History Hx Tetanus Toxoid Vaccination: No Hx Influenza Vaccination: Yes (states ''in [place]'') Hx Pneumococcal Vaccination: No Review Of Systems Constitutional: Negative for: Fever, Chills, Sweats Cardiovascular: Negative for: Chest Pain, Palpitations, Light Headedness Respiratory: Negative for: Cough, Shortness of Breath Gastrointestinal: Negative for: Nausea, Vomiting Musculoskeletal: Negative for: Back Pain Skin: Negative for: Rash Neurological: Negative for: Dizziness Psych: Positive for: Anxiety, Depression Physical Exam - Physical Exam Appears: Non-toxic, No Acute Distress Skin: Warm, Dry Head: Normacephalic Neck: Supple Chest: Symmetrical Cardiovascular: Rhythm Regular Respiratory: No Rales, No Rhonchi, No Wheezing Gastrointestinal/Abdominal: Soft, No Tenderness Back: No CVA Tenderness Neurological/Psych: Oriented x3 (Awake and alert), Normal Speech, Normal Cognition Gait: Steady ED Course And Treatment - Laboratory Results Result Diagrams: 03/29/17 05:11 03/28/17 01:50 ECG: Interpreted By Me, Viewed By Me ECG Rhythm: Sinus Rhythm (58), Nonspecific Changes O2 Sat by Pulse Oximetry: 96 (RA) Pulse Ox Interpretation: Normal - Radiology CXR: Interpreted by Me, Viewed By Me CXR Interpretation: No: Infiltrates, Fracture, Pnemothorax Progress Note: pt became agitated and combtive requiring 4 point restrains and medication for pt's safety as well the safety of the staff. pt is medically clared for transfet to [place] Disposition Counseled Patient/Family Regarding: Studies Performed, Diagnosis - Disposition Disposition: OTHER INSTITUTION Disposition Time: 21:33 Condition: FAIR Additional Instructions: Pt accepted in transfer to [facility] facility by dr Gila Parra Forms: [facility] (Upper Sorbian) - Clinical Impression Clinical Impression: Heroin abuse, Depression - Scribe Statement The provider has reviewed the documentation as recorded by the Renayibdonte ocasio All medical record entries made by the Scribdonte were at my direction and personally dictated by me. I have reviewed the chart and agree that the record accurately reflects my personal performance of the history, physical exam, medical decision making, and the department course for this patient. I have also personally directed, reviewed, and agree with the discharge instructions and disposition. Physician Patient Turnover Patient Signed Over To: Monica Smith Handoff Comments: pending transfer to [facility] psych
[2017-03-29 02:06] LABS: ALBUMIN 3.6 g/dL (3.5-5.0)
[2017-03-29 02:09] LABS: ALB/GLOB RATIO 1.2 (1.0-2.1); ALT/SGPT 31 U/L (21-72); AST/SGOT 24 U/L (17-59); BLOOD UREA NITROGEN 8 mg/dL (9-20); CALCIUM 8.4 mg/dl (8.6-10.4); GFR AFRICAN-AMERICAN > 60; GFR NON-AFRICAN AMERICAN > 60
[2017-03-29] MEDS ORDERED: DiphenhydrAMINE 50 mg/ml Inj IM STA (02:27)
[2017-03-29] MEDS ORDERED: DiphenhydrAMINE 50 mg/ml Inj ONE (02:29)
[2017-03-29 03:23] LABS: URINE BILIRUBIN NEGATIVE (NEGATIVE); URINE BLOOD NEGATIVE (NEGATIVE); URINE CLARITY Clear (Clear); URINE COLOR Yellow (YELLOW); URINE GLUCOSE (UA) NORMAL (Normal); URINE LEUKOCYTE ESTERASE NEG Leu/uL (Negative); URINE NITRATE NEGATIVE (NEGATIVE); URINE PROTEIN NEGATIVE (NEGATIVE); URINE UROBILINOGEN NORMAL mg/dL (0.2-1.0)
[2017-03-29 03:31] LABS: BARBITURATES, UR POSITIVE (NEGATIVE); BENZODIAZEPINES, UR NEGATIVE (NEGATIVE)
[2017-03-29 03:35] LABS: OPIATES, UR POSITIVE (NEGATIVE); PHENCYCLIDINE, UR NEGATIVE (NEGATIVE)
[2017-03-29 04:51] VITALS: PULSE 56
[2017-03-29 05:15] LABS: BASO % 0.9 % (0.0-2.0); EOS # 0.5 K/uL (0.0-0.7); EOS % 9.2 % (0.0-4.0); HEMOGLOBIN 12.3 g/dL (12.0-18.0); LYMPH % 37.1 % (20.0-40.0); MEAN CELL VOLUME 88.1 fL (80.0-94.0); MEAN CORPUSCULAR HEMOGLOBIN 29.5 pg (27.0-31.0); MEAN CORPUSCULAR HGB CONC 33.5 g/dL (33.0-37.0); MEAN PLATELET VOLUME 9.5 fL (7.2-11.7); MONO # 0.5 K/uL (0.0-0.8); MONO % 9.7 % (0.0-10.0); NEUT # 2.3 K/uL (1.8-7.0); NEUT % 43.1 % (50.0-75.0); NRBC % 0.1 % (0.0-2.0); RBC 4.18 Mil/uL (4.40-5.90); RED CELL DISTRIBUTION WIDTH 13.1 % (11.5-14.5); WHITE BLOOD COUNT 5.4 K/uL (4.8-10.8)
[2017-03-29 06:24] VITALS: BP 134/90; RESP 14; TEMP 97.1; O2SAT 99
--- NOTE | 2017-03-29 08:51 | RAD ---
HISTORY: r/o infiltrate bed 8a COMPARISON: Chest radiograph 05/06/2015. FINDINGS: LUNGS: No active pulmonary disease. PLEURA: No significant pleural effusion identified, no pneumothorax apparent. CARDIOVASCULAR: Cardiac silhouette is likely technically magnified with borderline cardiomegaly unlikely but not completely excluded. OSSEOUS STRUCTURES: No significant abnormalities. VISUALIZED UPPER ABDOMEN: Normal. OTHER FINDINGS: None. IMPRESSION: No acute infiltrate or pleural effusion. Cardiac silhouette is likely technically magnified digital technique. Mild intrinsic prominence of cardiac silhouette not completely excluded. Clinically correlate.
--- NOTE | 2017-03-29 19:07 | CARD ---
APPROVED REPORT EKG Measurement Heart [id number] <Conclusion> Sinus bradycardia Septal infarct, age undetermined Abnormal ECG
== END 2017-03-29 07:27 | disposition designated cancer center or children's hospital (05) ==
LOC: C.ER 20:01
DX: F32.9 Major depressive disorder, single episode, unspecified (principal); F11.10 Opioid abuse, uncomplicated
CPT/HCPCS: 71010; 80053; 80320; 80324; 80345; 80346; 80349; 80353; 80358; 80361; 81001; 83992; 85025; 93005; 96372; 99283; J1200; J2060

== ENCOUNTER 2017-03-31 03:04 | Emergency (ER) | payer MEDICAID ==
[2017-03-31 03:05] VITALS: BMI 27.4
[2017-03-31 03:20] VITALS: BP 145/98; PULSE 74; RESP 18; TEMP 98.8; O2SAT 99
--- NOTE | 2017-03-31 04:18 | C.PDOC ---
History Of Present Illness 41 year old male presents to the ED with complaints of back pain. Patient states he was recently discharged from [facility] from a psych admission. He denies fever, weakness, numbness, or other complaints at this time. Time Seen by Provider: 03/31/17 03:13 Chief Complaint (Nursing): Back Pain History Per: Patient History/Exam Limitations: no limitations Onset/Duration Of Symptoms: Unknown Current Symptoms Are (Timing): Still Present Quality Of Discomfort: "Pain" Previous Symptoms: Back Pain Associated Symptoms: None Recent travel outside of the [place]: No Additional History Per: Prior Records Past Medical History Reviewed: Historical Data, Nursing Documentation, Vital Signs Vital Signs: Last Vital Signs Temp 98.8 F 03/31/17 03:20 Pulse 74 03/31/17 03:20 Resp 18 03/31/17 03:20 BP 145/98 H 03/31/17 03:20 Pulse Ox 99 03/31/17 05:38 - Medical History PMH: Anxiety, Bipolar Disorder, Depression, HTN, Personality Disorder, Pneumonia , Schizophrenia, Seizures - [facility] Procedures ALCOHOL DETOXIFICATION (10/23/14) CENTRAL VENOUS CATHETER PLACEMENT WITH GUIDANCE (08/27/14) CLOSURE SKIN & SUBCUTANEOUS NEC (01/02/14) DPT ADMINISTRATION (08/11/14) GROUP PSYCHOTHERAPY (02/28/17) INDIVID PSYCHOTHERAP NEC (12/17/14) INDIVIDUAL PSYCHOTHERAPY, SUPPORTIVE (02/28/17) INJECT/INFUSE NEC (05/27/13) MEDICATION MANAGEMENT (02/28/17) MEDS MGMT FOR SUBSTANCE ABUSE TREATMENT, OTH REPL MED (02/28/17) OTHER GROUP THERAPY (04/04/14) PSYCHIAT DRUG THERAP NEC (12/17/14) VENOUS PUNCTURE NEC (05/27/13) Family History: States: Unknown Family Hx - Social History Hx Tobacco Use: Yes Hx Alcohol Use: No (denies current) Hx Substance Use: Yes - Immunization History Hx Tetanus Toxoid Vaccination: No Hx Influenza Vaccination: Yes (states ''in [place]'') Hx Pneumococcal Vaccination: No Review Of Systems Constitutional: Negative for: Fever, Chills Cardiovascular: Negative for: Chest Pain, Palpitations Respiratory: Negative for: Cough, Shortness of Breath Gastrointestinal: Negative for: Nausea, Vomiting, Abdominal Pain, Diarrhea Musculoskeletal: Positive for: Back Pain Neurological: Negative for: Weakness, Numbness Physical Exam - Physical Exam Appears: Non-toxic, No Acute Distress, Other (Patient is full ambulatory, appears drowsy but oriented x3 and now denies pain. ) Skin: Warm, Dry Head: Atraumatic Eye(s): bilateral: Normal Inspection, PERRL, EOMI Oral Mucosa: Moist Neck: Supple Chest: Symmetrical, No Deformity Cardiovascular: Rhythm Regular Respiratory: Normal Breath Sounds, No Rhonchi, No Wheezing Gastrointestinal/Abdominal: Soft, No Tenderness, No Distention, No Guarding, No Rebound, Other (Abdominal scars present ) Extremity: Normal ROM, No Tenderness, Capillary Refill (good capillary refill, less than two seconds ) Neurological/Psych: Oriented x3, Normal Speech, Normal Cognition, Normal Cranial Nerves, Normal Motor, Normal Sensation, Other (good strength ) Gait: Steady (full ambulatory) ED Course And Treatment O2 Sat by Pulse Oximetry: 99 (room air ) Progress Note: Patient was requesting to leave and eloped before discharge. Disposition - Disposition Disposition: ELOPEMENT - ER ONLY Disposition Time: 01:27 Condition: STABLE Forms: [employer] [facility] (Lebanese) - Clinical Impression Clinical Impression: Encounter for medical screening examination - Scribe Statement The provider has reviewed the documentation as recorded by the Scribe Judie Parisi All medical record entries made by the Scribe were at my direction and personally dictated by me. I have reviewed the chart and agree that the record accurately reflects my personal performance of the history, physical exam, medical decision making, and the department course for this patient. I have also personally directed, reviewed, and agree with the discharge instructions and disposition.
== END 2017-03-31 04:07 | disposition left against medical advice (07) ==
LOC: C.ER 03:04
DX: Z13.89 Encounter for screening for other disorder (principal)

== ENCOUNTER 2017-04-05 20:16 | Inpatient (IN) | payer MEDICAID ==
[2017-04-05 20:17] VITALS: BMI 28.7
--- NOTE | 2017-04-05 20:51 | C.PDOC ---
History Of Present Illness Patient presents to the ED for psychological evaluation concerning complaints of depression. Patient was recently discharged from [facility]. Patient notes he took some pills, name is unknown. Patient requests a place to stay for the night and denies suicidal/homicidal ideation at this time. Time Seen by Provider: 04/05/17 20:49 Chief Complaint (Nursing): Substance Abuse History Per: Patient History/Exam Limitations: no limitations Onset/Duration Of Symptoms: Hrs Current Symptoms Are (Timing): Still Present Suicide/Self Injury Attempted (Context): None Modifying Factor(s): None Severity: Mild Pain Scale Rating Of: 3 Associated Symptoms: Depression. denies: Suicidal Thoughts, Suicidal Plan Involuntary Hold By: None Recent travel outside of the [place]: No Additional History Per: Patient Past Medical History Reviewed: Historical Data, Nursing Documentation, Vital Signs Vital Signs: Last Vital Signs Temp 97.8 F 04/06/17 04:57 Pulse 60 04/06/17 04:57 Resp 16 04/06/17 04:57 BP 138/93 H 04/06/17 04:57 Pulse Ox 99 04/06/17 05:38 - Medical History PMH: Anxiety, Bipolar Disorder, Depression, HTN, Personality Disorder, Pneumonia , Schizophrenia, Seizures Surgical History: No Surg Hx - [facility] Procedures ALCOHOL DETOXIFICATION (10/23/14) CENTRAL VENOUS CATHETER PLACEMENT WITH GUIDANCE (08/27/14) CLOSURE SKIN & SUBCUTANEOUS NEC (01/02/14) DPT ADMINISTRATION (08/11/14) GROUP PSYCHOTHERAPY (02/28/17) INDIVID PSYCHOTHERAP NEC (12/17/14) INDIVIDUAL PSYCHOTHERAPY, SUPPORTIVE (02/28/17) INJECT/INFUSE NEC (05/27/13) MEDICATION MANAGEMENT (03/29/17) MEDS MGMT FOR SUBSTANCE ABUSE TREATMENT, OTH REPL MED (02/28/17) OTHER GROUP THERAPY (04/04/14) PSYCHIAT DRUG THERAP NEC (12/17/14) VENOUS PUNCTURE NEC (05/27/13) Family History: States: Unknown Family Hx - Social History Hx Tobacco Use: Yes Hx Alcohol Use: Yes (DRINKS DAILY,LAST DRANK LAST NIGHT) Hx Substance Use: Yes (POLYSUBSTANCE ABUSE-HEROINE/OPIOD.LAST USE TODAY.) - Immunization History Hx Tetanus Toxoid Vaccination: No Hx Influenza Vaccination: Yes (states ''in [place]'') Hx Pneumococcal Vaccination: No Review Of Systems Constitutional: Negative for: Fever, Chills Cardiovascular: Negative for: Chest Pain, Palpitations Respiratory: Negative for: Shortness of Breath Gastrointestinal: Negative for: Nausea, Vomiting Skin: Negative for: Rash, Lesions, Jaundice, Bruising Psych: Positive for: Depression. Negative for: Suicidal ideation Physical Exam - Physical Exam Appears: Non-toxic, No Acute Distress Skin: Warm, Dry Head: Normacephalic Eye(s): bilateral: Normal Inspection Oral Mucosa: Moist Neck: Trachea Midline, Supple Chest: Symmetrical, No Deformity, No Tenderness Cardiovascular: Rhythm Regular, No Murmur Respiratory: No Rales, No Rhonchi, No Wheezing Gastrointestinal/Abdominal: Soft, No Tenderness, No Distention Extremity: Normal ROM, Capillary Refill (less than 2 seconds ), Other (left forearm 1x0.5 cm skin avultion) Neurological/Psych: Oriented x3 Gait: Steady ED Course And Treatment - Laboratory Results Result Diagrams: 04/05/17 21:38 04/05/17 21:38 O2 Sat by Pulse Oximetry: 99 (on RA) Pulse Ox Interpretation: Normal Progress Note: labs ordered. Reevaluation Time: 05:30 Reassessment Condition: Improved ED OBSERVATION Date of observation admission: 04/05/17 Time of observation admission: 23:54 - Observation admission statement Patient is being placed in observation because:: depression - Goals of Observation Goals of observation are:: crisis eval - Progress Note Progress Note: 04/05/17 23:54 vitals stable 04/06/17 02:18 no complaints 04/06/17 04:18 vitals stable Disposition Discussed With : Mandi Bay Comment: accepted the [facility] and took over the care at 5:32 AM Doctor Will See Patient In The: Hospital Counseled Patient/Family Regarding: Studies Performed, Diagnosis - Disposition Disposition: HOSPITALIZED Disposition Time: 20:50 Condition: FAIR - POA Present On Arrival: None - Clinical Impression Clinical Impression: Alcohol intoxication, Substance abuse, Schizoaffective disorder - Scribe Statement The provider has reviewed the documentation as recorded by the Scribe (Marcella Roa) Provider Attestation: All medical record entries made by the Scribe were at my direction and personally dictated by me. I have reviewed the chart and agree that the record accurately reflects my personal performance of the history, physical exam, medical decision making, and the department course for this patient. I have also personally directed, reviewed, and agree with the discharge instructions and disposition. Decision To Admit - Pt Status Changed To: Hospital Disposition Of: Inpatient - Admit Certification Admit to Inpatient:: After my assessment, the patient will require hospitalization for at least two midnights. This is because of the severity of symptoms shown, intensity of services needed, and/or the medical risk in this patient being treated as an outpatient. - InPatient: Physician Admission Certification: I certify that this patient requires 2 or more midnights of care for the following reason:: After my assessment, the patient will require hospitalization for at least two midnights. This is because of the severity of symptoms shown, intensity of services needed, and/or the medical risk in this patient being treated as an outpatient. - . Bed Request Type: Psychiatry Admitting Physician: Mandi Bay Patient Diagnosis: Alcohol intoxication, Substance abuse, Schizoaffective disorder
[2017-04-05 21:52] LABS: CHLORIDE 104 mmol/L (98-107); POTASSIUM 3.3 mmol/L (3.6-5.2); SODIUM 142 mmol/L (132-148)
[2017-04-05 21:53] LABS: BASO % 0.4 % (0.0-2.0); EOS # 0.6 K/uL (0.0-0.7); EOS % 8.5 % (0.0-4.0); HEMATOCRIT 33.7 % (35.0-51.0); LYMPH # 1.9 K/uL (1.0-4.3); LYMPH % 26.3 % (20.0-40.0); MEAN CELL VOLUME 87.3 fL (80.0-94.0); MEAN CORPUSCULAR HEMOGLOBIN 29.5 pg (27.0-31.0); MEAN CORPUSCULAR HGB CONC 33.8 g/dL (33.0-37.0); MEAN PLATELET VOLUME 8.9 fL (7.2-11.7); MONO # 0.5 K/uL (0.0-0.8); MONO % 7.5 % (0.0-10.0); WHITE BLOOD COUNT 7.1 K/uL (4.8-10.8)
[2017-04-05 21:54] LABS: GFR AFRICAN-AMERICAN > 60
[2017-04-05 21:55] LABS: ALB/GLOB RATIO 1.2 (1.0-2.1); ALKALINE PHOSPHATASE 105 U/L (38-126); ALT/SGPT 58 U/L (21-72); AST/SGOT 54 U/L (17-59); BILIRUBIN,TOTAL 0.4 mg/dL (0.2-1.3); BLOOD UREA NITROGEN 5 mg/dL (9-20); CALCIUM 8.8 mg/dl (8.6-10.4); CARBON DIOXIDE 24 mmol/L (22-30); GLUCOSE,RANDOM 79 mg/dL (75-110); TOTAL PROTEIN 6.8 g/dL (6.3-8.3)
[2017-04-05 21:56] LABS: ALCOHOL SERUM 23 mg/dl (0-10)
[2017-04-05 22:55] LABS: URINE BILIRUBIN NEGATIVE (NEGATIVE); URINE BLOOD NEGATIVE (NEGATIVE); URINE COLOR Yellow (YELLOW); URINE GLUCOSE (UA) NORMAL (Normal); URINE KETONE NEGATIVE (NEGATIVE); URINE LEUKOCYTE ESTERASE NEG Leu/uL (Negative); URINE PROTEIN NEGATIVE (NEGATIVE); URINE UROBILINOGEN NORMAL mg/dL (0.2-1.0); WBC URINE < 1 /hpf (0-5)
[2017-04-06] MEDS ORDERED: Bacitracin 500 Units/gm Oint Foilpak UD ONE (05:07)
[2017-04-06 05:18] VITALS: O2SAT 99
[2017-04-06] MEDS ORDERED: Potassium Chloride 20 mEq ER Tab PO ONE ×2 (06:14→06:17)
--- NOTE | 2017-04-06 07:43 | PCM.BM ---
<Sasha Oconnell - Last Filed: 04/06/17 07:41> Treatment Plan Problems - Problems identified on initial assessmt Depression Date Initiated: 04/06/17 Time Initiated: 07:41 Assessment reference: NA Status: Active Opioid Abuse Date Initiated: 04/06/17 Time Initiated: 07:43 Assessment reference: NA Status: Active Treatment assets and liabiliti Patient Assests: adapts well, self-reliant, ADL independent, negotiates basic needs, cognitively intact, other Patient Liabilities: live alone (Homeless), financial problems, poor support system, substance abuse (Heroin Abuse), medical problems (Hx of Seizure) - Milieu Protocol Maintain good personal hygiene: daily Encourage regular showers, daily Remind patient to perform daily oral care, other Assist patient to perform ADL's (Self) Conduct patient checks and document Observation sheet: Q15 minutes (Observation) Maintain personal safety: every shift Educate patient to report safety concerns to staff, every shift Monitor environment for contraband/sharps Medication safety: Monitor for expected outcome, potential side effects: every shift, Assess barriers to learning: every shift, Assess readiness for medication education: every shift <Shy Ruano - Last Filed: 04/08/17 10:50> Family Contact Family involvement: Family/SO is involved Family contact: Patient declines to allow family contact at present - Goals for Treatment Patient goals for treatment: "I want to go back to [place]." Discharge/Continuing Care - Education Needs Education Needs: Patient Medication, Patient Coping Skills - Discharge Discharge Criteria: Tolerates medication w/o severe side effects, Free of Suicidal thoughts Discharge to:: Home, With Family - Treatment Team Participation Patient/Family/SO Statement: 04/08/17 10:51 "I want to leave." Discussed with Family/SO: No Was Patient/Family/SO present at Treatment Team Meeting: Yes <Gómez Reno - Last Filed: 04/08/17 10:59> - Diagnosis (1) Schizoaffective disorder Status: Acute Interventions: 04/08/17 10:58 * Assess/adjust medications daily and /or as needed * See patient on an individual basis 7x/week to assess status of hallucinations * Discuss risks, benefits, side effects and alternatives of medications (2) Opiate dependence Status: Acute Interventions: 04/08/17 10:58 * Assess 7x/week regarding severity of withdrawal * Educate regarding risks, benefits, side effects and alternatives of medications * Use Motivational Interviewing for abstinence * Use CBT for relapse prevention * Medication management for withdrawal symptoms * Encourage medication assisted treatment
[2017-04-06] MEDS ORDERED: Aluminum Hydroxide/Magnesium Hydroxide Susp (30 mL) PO PRN (14:09)
--- NOTE | 2017-04-06 19:52 | PCM.PSYCH ---
Initial Psychiatric Evaluation - Initial Psychiatric Evaluation Type of Admission: Voluntary Legal Status: Capacity Chief Complaint (in patient's own words): I had opioid withdrawal and I need medication Patient's Reaction to Hospitalization: Good History of Present Illness and Precipitating Events: This is a 41 year old male who was brought in by EMS for depression, and suicidal ideation with plans to cut himself. Patient remained disorganized and internally preoccupied throughout the interview. He is a poor historian. Pt was superficially cooperative and guarded about the details. He states that he has a history of cutting, and "feels like doing it again." He stated that he is snorting heroin on daily basis. He reported Heroin withdrawal symptoms, chills, body aches, nasal lacrimation, and piloerection, nausea and headaches. Pt states he wants to moved back to [facility] to see his children. He stated that he is residing with his cousin. Pt states he has a history of schizophrenia and is unable to state when his last hospitalization was. Patient appeared to have severe thought blocking and he appeared disheveled, malodorous, and unkempt. Patient reports depressed mood, feelings of hopelessness and helplessness. At times he became irritable and agitated during the interview. Patient reports history of voices telling him to kill himself in the past and reports history of seeing shadows. However remained confused about hearing any voices now due to the thought blocking. He remained delusional and paranoid throughout the interview. Current Medications: Active Medications Generic Name Dose Route Start Last Admin Trade Name Freq PRN Reason Stop Dose Admin Al Hydrox/Mg Hydrox/Simethicone 30 ml 04/06/17 14:09 Maalox 30 Ml PO TID PRN Indigestion / Heartburn Carbamazepine 200 mg 04/06/17 22:00 Tegretol PO Q12 YANNA Clonidine HCl 0.1 mg 04/06/17 14:09 04/06/17 14:34 Catapres PO 0.1 mg Q8 PRN Administration COWS Score More or Equal to 5 Docusate Sodium 100 mg 04/06/17 14:09 04/06/17 17:53 Colace PO 100 mg BID PRN Administration Constipation Fluphenazine HCl 10 mg 04/06/17 19:45 Prolixin PO BID YANNA Gabapentin 100 mg 04/06/17 19:45 Neurontin PO TID PRN anxiety/pain Hydroxyzine HCl 50 mg 04/06/17 14:12 Atarax PO Q6H PRN Anxiety Ibuprofen 600 mg 04/06/17 14:23 04/06/17 14:33 Motrin Tab PO 600 mg Q6H PRN Administration Pain, Mild (1-3) Lisinopril 10 mg 04/06/17 14:30 04/06/17 14:42 Zestril PO 10 mg DAILY YANNA Administration Loperamide HCl 2 mg 04/06/17 14:09 Imodium PO Q8 PRN Diarrhea Lorazepam 2 mg 04/06/17 14:24 04/06/17 17:53 Ativan PO 2 mg Q8H PRN Administration severe anxiety, etoh withdrawa Ondansetron HCl 4 mg 04/06/17 14:09 04/06/17 14:33 Zofran Tab PO 4 mg Q8 PRN Administration Nausea/Vomiting Phenobarbital 64.8 mg 04/06/17 19:45 Phenobarbital Tab PO BID YANNA Pneumococcal Polyvalent Vaccine 0.5 ml 04/09/17 10:00 Pneumovax 23 Vaccine IM 04/09/17 10:01 .ONCE ONE Sertraline HCl 50 mg 04/07/17 10:00 Zoloft PO DAILY YANNA Trazodone HCl 50 mg 04/06/17 22:00 Desyrel PO HS PRN Insomnia Past Psychiatric History - Past Psychiatric History Previous Treatment History: Inpatient Prior Psychiatric Treatment: He had multiple admission in the past At [facility]: [facility] Duration: His last admission was in 02/2017 Explanation of prior treatment: He is not compliant with treatment History of Abuse: denied History of ETOH/Drug Use: Denied. He stated that he drank only one can of beer/day History of Family Illness: denied Pertinent Medical Hx (Current Medical&Sleep Prob, Allergies): Allergies Allergy/AdvReac Type Severity Reaction Status Date / Time haloperidol [From Haldol] AdvReac NAUSEA Verified 04/03/17 11:55 Carbamazepine [Carbamazepine] 400 mg PO BID 04/03/17 Lisinopril [Zestril] 10 mg PO DAILY 04/03/17 Phenobarbital [PHENobarbital Tab] 64.8 mg PO DAILY 04/03/17 Phenobarbital [PHENobarbital Tab] 97.2 mg PO DAILY 04/03/17 History of seizures, HTN Review of Systems - Review of Systems All systems: reviewed and no additional remarkable complaints except (see HPI) - EENT Eyes: As Per HPI Mental Status Examination - Personal Presentation Personal Presentation: Looks stated age Additional comments: malodorus, unkempt, loud - Affect Additional comments: guarded - Motor Activity Motor Activity: Other (pma +, loud, agitated, needs redirection) - Speech Speech: Disorganized - Mood Mood: Depressed - Formal Thought Process Formal Thought Process: Hallucinations, Paranoia - Hallucinations/Delusions Hallucinations: Auditory - Obsessions/Compulsions Obsessions: No Compulsions: No - Cognitive Functions Orientation: Person, Place, Time Attention/Concentration: Attentive Abstract Thinking: [place] Estimate of Intelligence: Average Judgement: Imparied, as evidence by: Poor judgement, Imparied, as evidence by: Lack of insight into illness Memory: Recent intact, as evidence by: Ability to recall events of the day - Risk Risk: Seizure - Strength & Assets Inventory Strength & Assets Inventory: Family support - Limitations Limitations: Other (chronic mentaal illness and substance abuse) DSM 5 DX - DSM 5 DSM 5 Diagnosis: Schizoaffective disorder depressed type Opioid use disorder, Opioid withdrawal symptoms - Recommended/Plan of Treatment Treatment Recommendations and Plan of Treatment: CBT Psychoeducation Supportive therapy, group therapy, individual therapy Prolixin 10 mg by mouth daily BID for psychosis Zoloft 50 mg daily for depresssion Trazodone 50 mg by mouth prn at bedtime Opioid use disorder severe Symptomatic treatment for oipiod withdrawal symptoms CBT Psychoeducation Supportive therapy, individual therapy Use [place] for abstinence HTN Continue prescribed medications (Amlodipine, Lasix, Lisinopril) monitor signs and symptoms H/O Seizures Continue prescribed medications (Carbamazapine 300 mg by mouth twice a day and Phenobarbital) monitor signs and symptoms Time spend 35 minutes Projected ELOS: 5-7 days Prognosis: fair with meds Discharge Plan and Discharge Criteria: per - Smoking Cessation Smoking Cessation Initiated: No
--- NOTE | 2017-04-07 19:59 | PCM.PYCHPN ---
Psychiatric Progress Note - Psychiatric Progress Note Patient seen today, length of contact: 17 minutes Patient Chief Complaint: "I'm doing better and want to be discharged from the unit" Problems Identified/Issues Discussed: Patient was seen. Chart was reviewed important content noted. Nurse input received. Patient has no new complaints. Pt stated that he is felling "Better." and want to be d/c from the unit. No events overnight. Patient slept well and is eating well. Patient denies any depressive symptoms. Denies suicidal or homicidal ideations. Patient does not report hallucinations. No delusions elicited. No paranoia elicited. Patient is still intrusive and needs redirection multiple times. . Medical Problems: He is not compliant with treatment Diagnostic Results: lab reviewed DSM 5 Symptoms Update: Schizoaffective disorder depressed type Opioid use disorder, Opioid withdrawal symptoms Medication Change: Yes (d/c prolixin after pt had dystonic reaction) Medical Record Reviewed: Yes Mental Status Examination - Cognitive Function Orientation: Person, Place, Time Memory: Intact Attention: WNL Concentration: WNL Association: Loose Fund of Knowledge: Poor Decription of patient's judgement and insights: limited/limited - Mood Mood: Neutral, Other - Affect Affect: Constricted, Other (labile but redirectable) - Formal Thought Process Formal Thought Process: Hallucinations, Paranoia Psychotic Thoughts and Behaviors: denied - Suicidal Ideation Suicidal Ideation: No - Homicidal Ideation Homicidal Ideation: No Goal/Treatment Plan - Goal/Treatment Plan Need for Continued Stay: Discharge may exacerbated symptoms Progress Toward Problem(s) and Goals/Treatment Plan: CBT Psychoeducation Supportive therapy, group therapy, individual therapy D/c Prolixin 10 mg after he had dystonic reaction in the late afternoon. Pt received Congentin 1 mg IM once. Pt felt better and swelling of tongue improved. No breathing issues. Will consider to start Zyprexa for psychosis. ContinueZoloft 50 mg daily for depresssion Continue Trazodone 50 mg by mouth prn at bedtime Opioid use disorder severe Symptomatic treatment for oipiod withdrawal symptoms CBT Psychoeducation Supportive therapy, individual therapy Use [place] for abstinence HTN Continue prescribed medications (Amlodipine, Lasix, Lisinopril) monitor signs and symptoms H/O Seizures Continue prescribed medications (Carbamazapine 300 mg by mouth twice a day and Phenobarbital) monitor signs and symptoms
[2017-04-08 08:04] VITALS: RESP 18; TEMP 97.7
--- NOTE | 2017-04-08 10:27 | PCM.PYCHPN ---
Psychiatric Progress Note - Psychiatric Progress Note Patient seen today, length of contact: 16 minutes Patient Chief Complaint: "I want to go home." Problems Identified/Issues Discussed: The pt is seen, chart reviewed, case discussed with staff. Patient reports taking his medications and denies any side effects to medication. The patient denies having withdrawal symptoms The patient is very agitated and would like to leave the facility, leave [place], and go back to [place]. He has pressured speech and disorganized thoughts. He seems restless. The patient denies hallucinations or hearing voices He needs more time for stabilization. Physician will contact patients mother and inquire further about his condition and history. After care was discussed; coordinate discharge plans with Medication Change: Yes (increase zoloft, ) Medical Record Reviewed: Yes Mental Status Examination - Cognitive Function Orientation: Person, Place, Time Memory: Intact Attention: WNL Concentration: Poor Association: Loose Fund of Knowledge: Poor - Mood Mood: Depressed, Anxious - Affect Affect: Constricted, Depressed - Speech Speech: Soft - Formal Thought Process Formal Thought Process: Delusions, Paranoia, Loosening of associations - Suicidal Ideation Suicidal Ideation: No - Homicidal Ideation Homicidal Ideation: No Goal/Treatment Plan - Goal/Treatment Plan Need for Continued Stay: Remain at risks for inpatient hospitalization, Discharge may exacerbated symptoms Progress Toward Problem(s) and Goals/Treatment Plan: CBT Psychoeducation Supportive therapy, group therapy, individual therapy start Risperdal 1mg po BID Increase Zoloft to 100 mg daily for depresssion Continue Trazodone 50 mg by mouth prn at bedtime Opioid use disorder severe Symptomatic treatment for oipiod withdrawal symptoms CBT Psychoeducation Supportive therapy, individual therapy Use [place] for abstinence HTN Continue prescribed medications (Amlodipine, Lasix, Lisinopril) monitor signs and symptoms H/O Seizures Continue prescribed medications (Carbamazapine 300 mg by mouth twice a day and Phenobarbital) monitor signs and symptoms - Smoking Cessation Smoking Cessation Initiated: No
[2017-04-08 15:38] VITALS: BP 143/98; PULSE 63
--- NOTE | 2017-04-09 09:40 | PCM.PYCHDC ---
Mental Status Examination - Mental Status Examination Orientation: Person, Place, Situation, Time Memory: Intact Mood: Neutral Affect: Constricted Speech: Soft Attention: WNL Concentration: WNL Association: WNL Fund of Knowledge: WNL Formal Thought Process: No Impairment Description of patient's judgement and insight: good, fair Psychotic Thoughts and Behaviors: denies any AVH Suicidal Ideation: No Current Homicidal Ideation?: No Discharge Summary - Discharge Note Reason for Hospitalization: This is a 41 year old male who was brought in by EMS for depression, and suicidal ideation with plans to cut himself. Patient remained disorganized and internally preoccupied throughout the interview. He is a poor historian. Pt was superficially cooperative and guarded about the details. He states that he has a history of cutting, and "feels like doing it again." He stated that he is snorting heroin on daily basis. He reported Heroin withdrawal symptoms, chills, body aches, nasal lacrimation, and piloerection, nausea and headaches. Pt states he wants to moved back to [facility] to see his children. He stated that he is residing with his cousin. Pt states he has a history of schizophrenia and is unable to state when his last hospitalization was. Patient appeared to have severe thought blocking and he appeared disheveled, malodorous, and unkempt. Patient reports depressed mood, feelings of hopelessness and helplessness. At times he became irritable and agitated during the interview. Patient reports history of voices telling him to kill himself in the past and reports history of seeing shadows. However remained confused about hearing any voices now due to the thought blocking. He remained delusional and paranoid throughout the interview. Consultations:: List each consultation separately and include: 1. Reason for request. 2. Findings. 3. Follow-up Summary of Hospital Course include:: 1. Description of specific treatment plan utilized for patients during their course of treatmen. 2. Summarize the time- course for resolution of acute symptoms and/or regressed behaviors. 3. Describe issues identified and worked on during hospitalization. 4. Describe medication utilized. 5. Describe medical problems identified and treated. 6. Reassessment of suicide risk Summary of Hospital Course: During the course of his stay, patient (pt) started progressively improving and he no longer remained irritable, depressed, suicidal and paranoid. His mood and paranoia were improved and he started attending groups and meetings and started socializing. Patient denied any feelings of hopelessness, helplessness, and worthlessness, denied any problem with the sleep or appetite, denied suicidal ideation or homicidal ideation. Pt denied any auditory or visual hallucinations. Some changes were made in his current medications and patient was discharged on following medications. He tolerated these medications very well and denied any side effects. - Diagnosis (1) Schizoaffective disorder Status: Acute (2) Opiate dependence Status: Acute - Final Diagnosis (DSM 5) Condition upon Discharge: FAIR DSM 5: Schizoaffective disorder depressed type Opioid use disorder severe Disposition: HOME/ ROUTINE Follow-up Treatment Plan: Education: Pt was educated and counseled about the risks and benefits of taking and not taking medications. Pt was educated and counseled about the risks of drinking and abusing drugs. Pt was educated and counseled to go to the ER or call 911 if pt develop suicidal ideation or homicidal ideation, worsening of symptoms or severe side effects of the meds. Prescriptions/Medication Reconciliation: Benztropine [Cogentin] 1 mg PO BID 14 Days Gabapentin [Neurontin] 300 mg PO BID 14 Days risperiDONE [RisperDAL Tab] 1 mg PO BID 14 Days Sertraline [Zoloft] 100 mg PO DAILY 14 Days - Smoking Cessation Smoking Cessation Medication prescribed: No - Antipsychotic Medications Pt discharged on 2 or more routine antipsychotic medications: No
[2017-04-09] MEDS ORDERED: Pneumococcal 23-Valent Vaccine IM ONE (10:00)
== END 2017-04-09 09:00 | disposition home or self-care (01) | DRG 744 ==
LOC: C.ER 20:16 → C.9OBSV 23:53 → OBSVTOIN 04-06 05:33 → C.5E 04-06 05:33
PROVIDERS: ADMIT Emergency Medicine; ATTEND Psychiatry & Neurology Psychiatry
PROC: HZ2ZZZZ Detoxification Services for Substance Abuse Treatment (ICD-10-PCS; principal; 2017-04-06)
PROC: HZ52ZZZ Individual Psychotherapy for Substance Abuse Treatment, Cognitive-Behavioral (ICD-10-PCS; 2017-04-06)
PROC: HZ42ZZZ Group Counseling for Substance Abuse Treatment, Cognitive-Behavioral (ICD-10-PCS; 2017-04-06)
PROC: HZ59ZZZ Individual Psychotherapy for Substance Abuse Treatment, Supportive (ICD-10-PCS; 2017-04-06)
PROC: HZ56ZZZ Individual Psychotherapy for Substance Abuse Treatment, Psychoeducation (ICD-10-PCS; 2017-04-06)
PROC: HZ46ZZZ Group Counseling for Substance Abuse Treatment, Psychoeducation (ICD-10-PCS; 2017-04-06)
DX: F11.23 Opioid dependence with withdrawal (principal); R56.9 Unspecified convulsions; R45.851 Suicidal ideations; G24.09 Other drug induced dystonia; F25.1 Schizoaffective disorder, depressive type; F41.9 Anxiety disorder, unspecified; I10 Essential (primary) hypertension; F31.9 Bipolar disorder, unspecified; F60.9 Personality disorder, unspecified; G47.00 Insomnia, unspecified; Z91.14 Patient's other noncompliance with medication regimen; Z59.0 Homelessness; T43.3X5A Adverse effect of phenothiazine antipsychotics and neuroleptics, initial encounter

== ENCOUNTER 2017-04-09 20:54 | Emergency (ER) | payer MEDICAID ==
[2017-04-09 20:55] VITALS: BMI 28.7
[2017-04-09 21:33] VITALS: BP 136/84; PULSE 76; RESP 18; TEMP 98.6; O2SAT 98
--- NOTE | 2017-04-09 22:13 | C.PDOC ---
History Of Present Illness A 41 y/o M presents to the ER seeking overnight accommodation and c/o chronic leg pain. Patient is a known malinger, drug addict, and homeless man. Patient is wearing fresh clean paper scrubs from [facility] [place] where he was discharge and hour ago. Denies suicidal or homicidal ideation, fever, chills, chest pain, SOB, weakness, numbness, or any other complaints. Time Seen by Provider: 04/09/17 22:08 Chief Complaint (Nursing): Lower Extremity Problem/Injury History Per: Patient History/Exam Limitations: no limitations Onset/Duration Of Symptoms: Hrs, Persistent (leg pain) Current Symptoms Are (Timing): Still Present Suicide/Self Injury Attempted (Context): None Modifying Factor(s): Alcohol Severity: Mild Associated Symptoms: denies: Suicidal Thoughts, Suicidal Plan Recent travel outside of the [place]: No Additional History Per: Patient Past Medical History Reviewed: Historical Data, Nursing Documentation, Vital Signs Vital Signs: Last Vital Signs Temp 98.6 F 04/09/17 21:28 Pulse 76 04/09/17 21:28 Resp 18 04/09/17 21:28 BP 136/84 04/09/17 21:28 Pulse Ox 98 04/09/17 22:13 - Medical History PMH: Anxiety, Bipolar Disorder, Depression, HTN, Personality Disorder, Pneumonia , Schizophrenia, Seizures Denies: Diabetes, Hepatitis, HIV, Chronic Kidney Disease, Sexually Transmitted Disease - [facility] Procedures ALCOHOL DETOXIFICATION (10/23/14) CENTRAL VENOUS CATHETER PLACEMENT WITH GUIDANCE (08/27/14) CLOSURE SKIN & SUBCUTANEOUS NEC (01/02/14) DPT ADMINISTRATION (08/11/14) GROUP PSYCHOTHERAPY (02/28/17) INDIVID PSYCHOTHERAP NEC (12/17/14) INDIVIDUAL PSYCHOTHERAPY, SUPPORTIVE (02/28/17) INJECT/INFUSE NEC (05/27/13) MEDICATION MANAGEMENT (03/29/17) MEDS MGMT FOR SUBSTANCE ABUSE TREATMENT, OTH REPL MED (02/28/17) OTHER GROUP THERAPY (04/04/14) PSYCHIAT DRUG THERAP NEC (12/17/14) VENOUS PUNCTURE NEC (05/27/13) Family History: States: Unknown Family Hx - Social History Hx Tobacco Use: Yes Hx Alcohol Use: Yes (denies this visit) Hx Substance Use: Yes - Immunization History Hx Tetanus Toxoid Vaccination: No Hx Influenza Vaccination: Yes (states ''in [place]'') Hx Pneumococcal Vaccination: No Review Of Systems Except As Marked, All Systems Reviewed And Found Negative. Constitutional: Positive for: Other. Negative for: Fever, Chills Cardiovascular: Negative for: Chest Pain Respiratory: Negative for: Shortness of Breath Musculoskeletal: Positive for: Leg Pain Neurological: Negative for: Weakness, Numbness Psych: Negative for: Suicidal ideation, Other (Homicidal ideation) Physical Exam - Physical Exam Appears: Non-toxic, No Acute Distress, Other (Alcohol Intoxicated, argumenatative, and confrontational. In wheelchair for an unknown reason.) Skin: Warm, Dry Head: Atraumatic, Normacephalic Eye(s): bilateral: Abnormal Pupil (Pinpoint pupils) Cardiovascular: Rhythm Regular Respiratory: Normal Breath Sounds, No Rales, No Rhonchi, No Wheezing Gastrointestinal/Abdominal: Soft, No Tenderness Neurological/Psych: Oriented x3, Normal Speech, Normal Cognition ED Course And Treatment O2 Sat by Pulse Oximetry: 98 (RA) Pulse Ox Interpretation: Normal Medical Decision Making Medical Decision Making: Impression: A 41 y/o M presents to the ER seeking overnight accomidation and c/ o chronic leg pain. Plans: * reassess h/o malingering, substance abuse wearing fresh clean paper scrubs JUST left [facility] [place] with neg eval suspect continued malingering. Disposition Doctor Will See Patient In The: Office Counseled Patient/Family Regarding: Studies Performed, Diagnosis - Disposition Referrals: [facility] [Outside] [place] [facility] [Outside] [facility] [Outside] [facility] [Outside] [place] [facility] [Outside] Non [facility] Provider, [Primary Care Provider] - Disposition: HOME/ ROUTINE Disposition Time: 22:12 Condition: GOOD Additional Instructions: seek regular nightly [facility] placement Seek outpatient eval for your chronic leg discomforts (You were seen @ [facility] [place] earlier TODAY) and had a negative workup. Forms: General Discharge Instructions, [facility] ([place]) - Clinical Impression Clinical Impression: Opiate dependence, Chronic leg pain, Malingering - Scribe Statement The provider has reviewed the documentation as recorded by the Scribe Michela ocasio All medical record entries made by the Scribe were at my direction and personally dictated by me. I have reviewed the chart and agree that the record accurately reflects my personal performance of the history, physical exam, medical decision making, and the department course for this patient. I have also personally directed, reviewed, and agree with the discharge instructions and disposition.
== END 2017-04-09 22:25 | disposition home or self-care (01) ==
LOC: SUPCPDRO 20:54 → C.ER 20:54
DX: F11.20 Opioid dependence, uncomplicated (principal); G89.29 Other chronic pain; Z76.5 Malingerer [conscious simulation]

== ENCOUNTER 2017-04-16 18:06 | Emergency (ER) | payer MEDICAID ==
[2017-04-16 18:07] VITALS: BMI 28.7
[2017-04-16 18:13] VITALS: BP 157/95; PULSE 89; RESP 16; TEMP 98; O2SAT 98
--- NOTE | 2017-04-16 19:06 | C.PDOC ---
History Of Present Illness 41 yr old male who is homeless, with PMHx of alcohol abuse and schizophrenia, presents to the ER with itchiness to the legs. Patient states he was seen yesterday and had a work up and ultrasound of legs and was found to be negative for DVT. Patient denies fever, chill, chest pain, SOB, nausea, vomiting, weakness or numbness. Time Seen by Provider: 04/16/17 18:53 Chief Complaint (Nursing): Substance Abuse History Per: Patient History/Exam Limitations: no limitations Onset/Duration Of Symptoms: Days Past Medical History Reviewed: Historical Data, Nursing Documentation, Vital Signs Vital Signs: Last Vital Signs Temp 98 F 04/16/17 18:08 Pulse 89 04/16/17 18:08 Resp 16 04/16/17 18:08 BP 157/95 H 04/16/17 18:08 Pulse Ox 98 04/16/17 19:49 - Medical History PMH: Anxiety, Bipolar Disorder, Depression, HTN, Personality Disorder, Pneumonia , Schizophrenia, Seizures - [facility] Procedures ALCOHOL DETOXIFICATION (10/23/14) CENTRAL VENOUS CATHETER PLACEMENT WITH GUIDANCE (08/27/14) CLOSURE SKIN & SUBCUTANEOUS NEC (01/02/14) DETOXIFICATION SERVICES FOR SUBSTANCE ABUSE TREATMENT (04/06/17) DPT ADMINISTRATION (08/11/14) GROUP WAREHOUSE DISTRIBUTION ASSOCIATE FOR SUBSTANCE ABUSE TREATMENT, PSYCHOEDUCATION (04/06/17) GROUP WAREHOUSE DISTRIBUTION ASSOCIATE FOR SUBSTANCE ABUSE, COGNITIVE BEHAVIORAL (04/06/17) GROUP PSYCHOTHERAPY (02/28/17) INDIV PSYCHOTHERAPY FOR SUBSTANCE ABUSE TREATMENT, SUPPORT (04/06/17) INDIV PSYCHOTHERAPY FOR SUBSTANCE ABUSE, COGNITIV BEHAVIORAL (04/06/17) INDIV PSYCHOTHERAPY FOR SUBSTANCE ABUSE, PSYCHOEDUCATION (04/06/17) INDIVID PSYCHOTHERAP NEC (12/17/14) INDIVIDUAL PSYCHOTHERAPY, SUPPORTIVE (02/28/17) INJECT/INFUSE NEC (05/27/13) MEDICATION MANAGEMENT (03/29/17) MEDS MGMT FOR SUBSTANCE ABUSE TREATMENT, OTH REPL MED (02/28/17) OTHER GROUP THERAPY (04/04/14) PSYCHIAT DRUG THERAP NEC (12/17/14) VENOUS PUNCTURE NEC (05/27/13) Family History: States: No Known Family Hx - Social History Hx Tobacco Use: Yes Hx Alcohol Use: Yes (denies this visit) Hx Substance Use: Yes - Immunization History Hx Tetanus Toxoid Vaccination: No Hx Influenza Vaccination: Yes (states ''in [place]'') Hx Pneumococcal Vaccination: No Review Of Systems Except As Marked, All Systems Reviewed And Found Negative. Constitutional: Negative for: Fever, Chills Cardiovascular: Negative for: Chest Pain Respiratory: Negative for: Shortness of Breath Gastrointestinal: Negative for: Nausea, Vomiting Musculoskeletal: Positive for: Other ((+) Itchiness to the legs.) Neurological: Negative for: Weakness, Numbness Physical Exam - Physical Exam Appears: Non-toxic, No Acute Distress, Other ((+) Intoxication) Skin: Warm, Dry, No Rash Head: Atraumatic, Normacephalic Oral Mucosa: Moist Cardiovascular: Rhythm Regular, No Murmur Respiratory: Normal Breath Sounds, No Rales, No Rhonchi, No Wheezing Gastrointestinal/Abdominal: Normal Exam, Soft, No Tenderness, No Guarding, No Rebound Extremity: Normal ROM, No Swelling Neurological/Psych: Oriented x3, Normal Speech, Normal Motor ED Course And Treatment O2 Sat by Pulse Oximetry: 98 (RA ) Pulse Ox Interpretation: Normal Progress Note: discharged and suspected malingering, pt refused to leave ED, [employer] escorted pt to bus stop. Reevaluation Time: 19:10 Medical Decision Making Medical Decision Making: chronic alcohol abuse, schizophrenia US's neg for DVT yesterday's w/u No s/s of cellulitis ? malingering. Disposition Doctor Will See Patient In The: Office Counseled Patient/Family Regarding: Studies Performed, Diagnosis - Disposition Referrals: Alcoholics Anonymous [Outside] [place] [facility] [Outside] [facility] [Outside] [place] [facility] [Outside] Disposition: HOME/ ROUTINE Disposition Time: 19:05 Condition: GOOD Additional Instructions: avoid alcohol abuse and seek detox Seek AA moisturizers to your legs for dry skin Seek regular nightly Longterm placement. Instructions: Abuse of Alcohol (ED) Forms: [facility] ([place]) - Clinical Impression Clinical Impression: Alcohol abuse, Schizophrenia, Chronic pruritus - Scribe Statement The provider has reviewed the documentation as recorded by the Renayibe Vonnie Gallego Provider Attestation: All medical record entries made by the Scribe were at my direction and personally dictated by me. I have reviewed the chart and agree that the record accurately reflects my personal performance of the history, physical exam, medical decision making, and the department course for this patient. I have also personally directed, reviewed, and agree with the discharge instructions and disposition.
== END 2017-04-16 19:55 | disposition home or self-care (01) ==
LOC: C.ER 18:06
DX: L29.8 Other pruritus (principal); F10.10 Alcohol abuse, uncomplicated; Y90.9 Presence of alcohol in blood, level not specified; F20.9 Schizophrenia, unspecified

== ENCOUNTER 2017-06-05 00:02 | Emergency (ER) | payer MEDICAID ==
[2017-06-05 00:03] VITALS: BMI 18.6
--- NOTE | 2017-06-05 01:10 | C.PDOC ---
History Of Present Illness Patient presents to the ER requesting a place to spend the night and complaining of vague back discomfort. Denies dysuria, hematuria, weakness, or numbness. Time Seen by Provider: 06/05/17 00:46 Chief Complaint (Nursing): Medical Clearance History Per: Patient History/Exam Limitations: no limitations Onset/Duration Of Symptoms: Hrs Current Symptoms Are (Timing): Still Present Recent travel outside of the [place]: No Past Medical History Reviewed: Historical Data, Nursing Documentation, Vital Signs Vital Signs: Last Vital Signs Temp 98 F 06/05/17 04:50 Pulse 78 06/05/17 04:50 Resp 16 06/05/17 04:50 BP 126/89 06/05/17 04:50 Pulse Ox 99 06/05/17 04:50 - Medical History PMH: Anxiety, Bipolar Disorder, Depression, HIV, HTN, Personality Disorder, Pneumonia, Schizophrenia, Seizures Surgical History: No Surg Hx - [facility] Procedures ALCOHOL DETOXIFICATION (10/23/14) CENTRAL VENOUS CATHETER PLACEMENT WITH GUIDANCE (08/27/14) CLOSURE SKIN & SUBCUTANEOUS NEC (01/02/14) DETOXIFICATION SERVICES FOR SUBSTANCE ABUSE TREATMENT (04/06/17) DPT ADMINISTRATION (08/11/14) GROUP TECHNICAL SUPPORT AGENT FOR SUBSTANCE ABUSE TREATMENT, PSYCHOEDUCATION (04/06/17) GROUP TECHNICAL SUPPORT AGENT FOR SUBSTANCE ABUSE, COGNITIVE BEHAVIORAL (04/06/17) GROUP PSYCHOTHERAPY (02/28/17) INDIV PSYCHOTHERAPY FOR SUBSTANCE ABUSE TREATMENT, SUPPORT (04/06/17) INDIV PSYCHOTHERAPY FOR SUBSTANCE ABUSE, COGNITIV BEHAVIORAL (04/06/17) INDIV PSYCHOTHERAPY FOR SUBSTANCE ABUSE, PSYCHOEDUCATION (04/06/17) INDIVID PSYCHOTHERAP NEC (12/17/14) INDIVIDUAL PSYCHOTHERAPY, SUPPORTIVE (02/28/17) INJECT/INFUSE NEC (05/27/13) MEDICATION MANAGEMENT (03/29/17) MEDS MGMT FOR SUBSTANCE ABUSE TREATMENT, OTH REPL MED (02/28/17) OTHER GROUP THERAPY (04/04/14) PSYCHIAT DRUG THERAP NEC (12/17/14) VENOUS PUNCTURE NEC (05/27/13) Family History: States: Unknown Family Hx - Social History Hx Tobacco Use: Yes Hx Alcohol Use: Yes Hx Substance Use: Yes - Immunization History Hx Tetanus Toxoid Vaccination: No Hx Influenza Vaccination: Yes (states ''in [place]'') Hx Pneumococcal Vaccination: No Review Of Systems Constitutional: Negative for: Fever, Chills Genitourinary: Negative for: Dysuria, Hematuria Musculoskeletal: Positive for: Back Pain Neurological: Negative for: Weakness, Numbness Physical Exam - Physical Exam Appears: Non-toxic, No Acute Distress Skin: Warm, Dry Head: Normacephalic Oral Mucosa: Moist Chest: Symmetrical Cardiovascular: Rhythm Regular Respiratory: No Rales, No Rhonchi, No Wheezing Gastrointestinal/Abdominal: Soft, No Tenderness Back: No Vertebral Tenderness, No Paraspinal Tenderness Neurological/Psych: Oriented x3 ED Course And Treatment O2 Sat by Pulse Oximetry: 99 (Room air) Pulse Ox Interpretation: Normal Progress Note: Motrin administered. Reevaluation Time: 05:32 Reassessment Condition: Improved Disposition Counseled Patient/Family Regarding: Studies Performed, Diagnosis - Disposition Disposition: HOME/ ROUTINE Disposition Time: 05:32 Condition: FAIR Forms: [facility] (Lithuanian) - Clinical Impression Clinical Impression: Back pain, Alcohol intoxication - Scribe Statement The provider has reviewed the documentation as recorded by the [address] All medical record entries made by the Scribe were at my direction and personally dictated by me. I have reviewed the chart and agree that the record accurately reflects my personal performance of the history, physical exam, medical decision making, and the department course for this patient. I have also personally directed, reviewed, and agree with the discharge instructions and disposition.
[2017-06-05 06:15] VITALS: BP 133/77; PULSE 81; RESP 18; TEMP 97.8; O2SAT 97
== END 2017-06-05 06:15 | disposition home or self-care (01) ==
LOC: C.ER 00:02
DX: M54.9 Dorsalgia, unspecified (principal); F10.129 Alcohol abuse with intoxication, unspecified; Y90.9 Presence of alcohol in blood, level not specified

== ENCOUNTER 2017-08-07 17:16 | Inpatient (IN) | payer MEDICAID ==
[2017-08-07 17:16] VITALS: BMI 18.6
--- NOTE | 2017-08-07 17:51 | C.PDOC ---
History Of Present Illness 41 year old male with Hx of heroin abuse and schizophrenia presents to the ED requesting detox. Patient states he was in [place] doing well but recently returned to the area and started using heroin again, last use of heroin was this morning. Patient also reports having a Hx of seizures currently taking medications for it is requesting more because he is running out of them. Patient denies SI/HI, hallucinations, any other physical complaints. Time Seen by Provider: 08/07/17 17:28 Chief Complaint (Nursing): Substance Abuse History Per: Patient History/Exam Limitations: no limitations Onset/Duration Of Symptoms: Days Current Symptoms Are (Timing): Gone Suicide/Self Injury Attempted (Context): None Modifying Factor(s): Other (Heroin) Associated Symptoms: denies: Depression, Suicidal Thoughts, Suicidal Plan Involuntary Hold By: None Recent travel outside of the [place]: No Additional History Per: Patient Past Medical History Reviewed: Historical Data, Nursing Documentation, Vital Signs Vital Signs: Last Vital Signs Temp 97.5 F L 08/07/17 17:28 Pulse 74 08/07/17 17:28 Resp 20 08/07/17 17:28 BP 124/81 08/07/17 17:28 Pulse Ox 97 08/07/17 19:42 - Medical History PMH: Anxiety, Bipolar Disorder, Depression, HIV, HTN, Personality Disorder, Pneumonia, Schizophrenia, Seizures Denies: Diabetes, Hepatitis, Chronic Kidney Disease, Sexually Transmitted Disease Surgical History: No Surg Hx - [facility] Procedures ALCOHOL DETOXIFICATION (10/23/14) CENTRAL VENOUS CATHETER PLACEMENT WITH GUIDANCE (08/27/14) CLOSURE SKIN & SUBCUTANEOUS NEC (01/02/14) DETOXIFICATION SERVICES FOR SUBSTANCE ABUSE TREATMENT (04/06/17) DPT ADMINISTRATION (08/11/14) GROUP DRIVERS LICENSE EXAMINER FOR SUBSTANCE ABUSE TREATMENT, PSYCHOEDUCATION (04/06/17) GROUP DRIVERS LICENSE EXAMINER FOR SUBSTANCE ABUSE, COGNITIVE BEHAVIORAL (04/06/17) GROUP PSYCHOTHERAPY (06/03/17) INDIV PSYCHOTHERAPY FOR SUBSTANCE ABUSE TREATMENT, SUPPORT (04/06/17) INDIV PSYCHOTHERAPY FOR SUBSTANCE ABUSE, COGNITIV BEHAVIORAL (04/06/17) INDIV PSYCHOTHERAPY FOR SUBSTANCE ABUSE, PSYCHOEDUCATION (04/06/17) INDIVID PSYCHOTHERAP NEC (12/17/14) INDIVIDUAL PSYCHOTHERAPY, COGNITIVE-BEHAVIORAL (06/03/17) INDIVIDUAL PSYCHOTHERAPY, SUPPORTIVE (02/28/17) INJECT/INFUSE NEC (05/27/13) MEDICATION MANAGEMENT (03/29/17) MEDS MGMT FOR SUBSTANCE ABUSE TREATMENT, OTH REPL MED (02/28/17) OTHER GROUP THERAPY (04/04/14) PSYCHIAT DRUG THERAP NEC (12/17/14) VENOUS PUNCTURE NEC (05/27/13) Family History: States: Unknown Family Hx - Social History Hx Tobacco Use: Yes Hx Alcohol Use: Yes Hx Substance Use: Yes - Immunization History Hx Tetanus Toxoid Vaccination: No Hx Influenza Vaccination: Yes (states ''in [place]'') Hx Pneumococcal Vaccination: No Review Of Systems Constitutional: Negative for: Fever, Chills Cardiovascular: Negative for: Chest Pain, Palpitations Respiratory: Negative for: Cough, Shortness of Breath Gastrointestinal: Negative for: Nausea, Vomiting, Abdominal Pain Skin: Negative for: Rash Neurological: Negative for: Weakness, Numbness, Headache Psych: Negative for: Depression, Suicidal ideation Physical Exam - Physical Exam Appears: Non-toxic, No Acute Distress Skin: Normal Color, Warm, Dry Head: Atraumatic, Normacephalic Nose: No Discharge Oral Mucosa: Moist Neck: Normal ROM, Supple Chest: Symmetrical Cardiovascular: Rhythm Regular, No Murmur Respiratory: Normal Breath Sounds, No Rales, No Rhonchi, No Wheezing Gastrointestinal/Abdominal: Soft, No Tenderness, No Distention, No Rebound Extremity: Normal ROM, No Pedal Edema, No Calf Tenderness, No Deformity, No Swelling Neurological/Psych: Oriented x3, Normal Speech, Normal Cognition Gait: Steady ED Course And Treatment - Laboratory Results Result Diagrams: 08/07/17 17:58 08/07/17 17:58 Lab Interpretation: No Acute Changes O2 Sat by Pulse Oximetry: 97 (On RA) Pulse Ox Interpretation: Normal Progress Note: Patient was evaluated by crisis and accepted for psychiatric admission. He is medically cleared for admission. Medical Decision Making Medical Decision Making: Impression : Heroin detox Plan: * Blood work Disposition - Disposition Disposition: HOSPITALIZED Disposition Time: 21:23 Condition: STABLE - POA Present On Arrival: None - Clinical Impression Clinical Impression: Schizophrenia - Scribe Statement The provider has reviewed the documentation as recorded by the Scribe Johny Chávez All medical record entries made by the Scribe were at my direction and personally dictated by me. I have reviewed the chart and agree that the record accurately reflects my personal performance of the history, physical exam, medical decision making, and the department course for this patient. I have also personally directed, reviewed, and agree with the discharge instructions and disposition.
[2017-08-07 18:03] LABS: BASO % 0.8 % (0.0-2.0); EOS # 0.4 K/uL (0.0-0.7); EOS % 6.1 % (0.0-4.0); HEMATOCRIT 37.8 % (35.0-51.0); LYMPH # 1.6 K/uL (1.0-4.3); LYMPH % 25.9 % (20.0-40.0); MEAN CELL VOLUME 87.4 fL (80.0-94.0); MEAN CORPUSCULAR HEMOGLOBIN 28.6 pg (27.0-31.0); MEAN CORPUSCULAR HGB CONC 32.7 g/dL (33.0-37.0); MONO # 0.4 K/uL (0.0-0.8); RED CELL DISTRIBUTION WIDTH 14.2 % (11.5-14.5); WHITE BLOOD COUNT 6.3 K/uL (4.8-10.8)
[2017-08-07 18:42] LABS: ALCOHOL SERUM < 10 mg/dl (0-10); BILIRUBIN,TOTAL 0.8 mg/dL (0.2-1.3); CALCIUM 8.3 mg/dl (8.6-10.4); GFR AFRICAN-AMERICAN > 60; GLUCOSE,RANDOM 100 mg/dL (75-110)
[2017-08-07 18:45] LABS: ALKALINE PHOSPHATASE 109 U/L (38-126); ALT/SGPT 77 U/L (21-72); AST/SGOT 57 U/L (17-59); BLOOD UREA NITROGEN 21 mg/dL (9-20); CARBON DIOXIDE 28 mmol/L (22-30); CHLORIDE 107 mmol/L (98-107); POTASSIUM 5.6 mmol/L (3.6-5.2); SODIUM 138 mmol/L (132-148); TOTAL PROTEIN 8.5 g/dL (6.3-8.3)
[2017-08-07 21:09] LABS: URINE BILIRUBIN NEGATIVE (NEGATIVE); URINE BLOOD NEGATIVE (NEGATIVE); URINE COLOR Yellow (YELLOW); URINE GLUCOSE (UA) NORMAL (Normal); URINE KETONE NEGATIVE (NEGATIVE); URINE LEUKOCYTE ESTERASE NEG Leu/uL (Negative); URINE PROTEIN NEGATIVE (NEGATIVE); URINE UROBILINOGEN NORMAL mg/dL (0.2-1.0); WBC URINE < 1 /hpf (0-5)
[2017-08-07] MEDS ORDERED: Aluminum Hydroxide/Magnesium Hydroxide Susp (30 mL) PO PRN (22:46)
--- NOTE | 2017-08-07 22:58 | PCM.BM ---
<Shayy Diamond - Last Filed: 08/07/17 22:55> Treatment Plan Problems - Problems identified on initial assessmt Suicidal ideation Date Initiated: 08/07/17 Time Initiated: 22:20 Assessment reference: NA Status: Active Depression Date Initiated: 08/07/17 Time Initiated: 22:20 Assessment reference: NA Status: Active Treatment assets and liabiliti Patient Assests: adapts well, cooperative, self-reliant, ADL independent, negotiates basic needs, cognitively intact, other Patient Liabilities: substance abuse - Milieu Protocol Maintain good personal hygiene: daily Encourage regular showers, daily Remind patient to perform daily oral care, daily Assist patient to perform ADL's Maintain personal safety: every shift Educate patient to report safety concerns to staff, every shift Monitor environment for contraband/sharps Medication safety: Monitor for expected outcome, potential side effects: every shift, Assess barriers to learning: every shift, Assess readiness for medication education: every shift <Shy Ruano - Last Filed: 08/09/17 10:58> Family Contact Family involvement: Family/SO is involved Family contact: Patient declines to allow family contact at present - Goals for Treatment Patient goals for treatment: "I want to go to rehab." Discharge/Continuing Care - Education Needs Education Needs: Patient Medication, Patient Coping Skills, Patient Placement options, Patient Community resources - Discharge Discharge Criteria: Tolerates medication w/o severe side effects, No longer exhibiting s/s of withdrawal, Reduction of target symptoms Discharge to:: Substance Abuse Rehab - Treatment Team Participation Discussed with Family/SO: No Was Patient/Family/SO present at Treatment Team Meeting: Yes <Gómez Reno - Last Filed: 08/09/17 11:48> - Diagnosis (1) Schizophrenia Status: Chronic Interventions: 08/09/17 11:47 * Assess/adjust medications daily and /or as needed * See patient on an individual basis 7x/week to assess status of hallucinations * Discuss risks, benefits, side effects and alternatives of medications * (2) Heroin abuse Status: Acute Interventions: 08/09/17 11:47 * Assess 7x/week regarding severity of withdrawal * Educate regarding risks, benefits, side effects and alternatives of medications * Use Motivational Interviewing for abstinence * Use CBT for relapse prevention * Medication management for withdrawal symptoms * Encourage medication assisted treatment *
--- NOTE | 2017-08-08 10:46 | PCM.PSYCH ---
Initial Psychiatric Evaluation - Initial Psychiatric Evaluation Type of Admission: Voluntary Legal Status: Capacity Chief Complaint (in patient's own words): I was feeling depressed and suicidal. ' History of Present Illness and Precipitating Events: The pt is seen, chart reviewed, case discussed with staff Pt is a 41 y/o male, who lives with his cousin and has 4 adult children, came to the ED with depression and suicidal ideations. Tower Dragline Operator is familer with this patient. Pt has been hospitalized multiple times at [facility] for similar episodes. He was recently discharged almost 4 moths ago. Pt reported in the ED that, ' he is feeling depressed depressed with passive suicidal ideation with no plan for few weeks. Today, he reports his suicidal thoughts intensive so he brought himself to the ED. He states he is self-medicating his depression with heroin and is feeling helpless and hopeless. Patient reports non-compliance with outpatient treatment or medication. He reports he is not trusting of himself regarding his safety. He repeatedly stated, 'I am liable of taking my life,' 'I need help.' Patient was observed with multiple, deep, healed cuts on both of his forearms that he is deeply scratching during the assessment. He reports that contributory to his depression, since last night hes been attempting to reopen the healed scars with sharp items in attempt to harm himself. Patient appears depressed, helpless, hopeless, and worthless. He is malodorous and unkempt while in the ED and reports he is not attending to his ADLs. Patient also reports intravenously using 10 bags of heroin daily for the past 26 years and has a desire to stop using. Initially pt remained depressed, isolated and withdrawn in the unit. He reported withdrawal symptoms from heroin including, nausea, vomiting, diarrhoea , back pains and joint pains. Pt appeared disheveled. Later, he became irritable , agitated and loud with slurred speech pattern. Pt denies alcohol and other illicit drug use. PMHX: HTN, Seizures Current Medications: Active Medications Generic Name Dose Route Start Last Admin Trade Name Freq PRN Reason Stop Dose Admin Al Hydrox/Mg Hydrox/Simethicone 30 ml 08/07/17 22:46 Maalox 30 Ml PO TID PRN Indigestion / Heartburn Clonidine HCl 0.1 mg 08/07/17 22:46 Catapres PO Q8 PRN COWS Score More or Equal to 5 Diphenhydramine HCl 50 mg 08/07/17 22:47 08/07/17 23:11 Benadryl PO 50 mg Q6 PRN Administration Extra Pyramidal Symptoms Loperamide HCl 2 mg 08/07/17 22:46 Imodium PO Q8 PRN Diarrhea Lorazepam 1 mg 08/07/17 22:47 08/07/17 23:11 Ativan PO 1 mg Q6 PRN Administration Anxiety Ondansetron HCl 4 mg 08/07/17 22:46 Zofran Tab PO Q8 PRN Nausea/Vomiting Pneumococcal Polyvalent Vaccine 0.5 ml 08/11/17 10:00 Pneumovax 23 Vaccine IM 08/11/17 10:01 .ONCE ONE Trazodone HCl 50 mg 08/08/17 22:00 Desyrel PO HS [facility] Past Psychiatric History - Past Psychiatric History Previous Treatment History: Inpatient Pertinent Medical Hx (Current Medical&Sleep Prob, Allergies): Allergies Allergy/AdvReac Type Severity Reaction Status Date / Time lactose Allergy DIARRHEA Verified 06/03/17 06:54 fluphenazine [From Prolixin] AdvReac SWELLING Verified 06/03/17 06:54 haloperidol [From Haldol] AdvReac NAUSEA Verified 06/03/17 06:54 Phenobarbital [PHENobarbital Tab] 64.8 mg PO DAILY 04/03/17 Phenobarbital [PHENobarbital Tab] 97.2 mg PO DAILY 04/03/17 Acetaminophen [Tylenol 325mg tab] 325 mg PO Q6 06/02/17 Carbamazepine [Carbatrol] 200 mg PO DAILY 06/02/17 DULoxetine [Cymbalta] 30 mg PO BID 06/02/17 Lisinopril [Zestril] 10 mg PO DAILY 06/02/17 Melatonin [Melatin 3 mg-1 mg] 1 tab PO DAILY 06/02/17 Nicotine [Nicotine Patch] 1 each TD DAILY 06/02/17 lamoTRIgine [LaMICtal] 100 mg PO BID 06/02/17 Review of Systems - Review of Systems All systems: reviewed and no additional remarkable complaints except - Psychiatric Psychiatric: Abnormal Sleep Pattern, Depression, Hopelessness, Mood Swings, Paranoia, Suicidal Ideation Mental Status Examination - Personal Presentation Personal Presentation: Looks stated age - Affect Affect: Broad, Other (labile) - Motor Activity Motor Activity: Psychomotor Agitation - Reliability in Providing Information Reliability in Providing Information: Poor, due to altered mood - Speech Speech: Disorganized, Other (Slurred) - Mood Mood: Depressed, Anxious - Formal Thought Process Formal Thought Process: Delusions, Paranoia, Loosening of associations - Obsessions/Compulsions Obsessions: No Compulsions: No - Cognitive Functions Orientation: Person, Place, Situation, Time Sensorium: Alert Attention/Concentration: Attentive Abstract Thinking: Boswell Estimate of Intelligence: Below average Judgement: Imparied, as evidence by: Poor judgement, Imparied, as evidence by: Lack of insight into illness - Risk Risk: Suicidal, Withdrawal, Diminished functioning - Strength & Assets Inventory Strength & Assets Inventory: Family support DSM 5 DX - DSM 5 DSM 5 Diagnosis: Schizoaffective disorder bipolar type Opioid use disorder severe Opioid withdrawal - Recommended/Plan of Treatment Treatment Recommendations and Plan of Treatment: Schizoaffective disorder bipolar type CBT Psychoeducation Supportive therapy, group therapy, individual therapy Lamotrigine 100 mg PO BID Trazodone 50 mg by mouth daily at bedtime Opioid use disorder severe CBT Psychoeducation Supportive therapy, individual therapy Use [place] for abstinence Opioid withdrawal CBT Psychoeducation Supportive therapy, individual therapy Clonidine when necessary Start methadone taper DM Monitor signs and symptoms Seizures Monitor signs and symptoms (Carbamazapine, Phenobarbital) Continue same medications - Smoking Cessation Smoking Cessation Initiated: No
[2017-08-08] MEDS ORDERED: MELATONIN PO SCH (11:00)
[2017-08-08] MEDS ORDERED: CARBAMAZEPINE 200 MG PO SCH (18:00)
--- NOTE | 2017-08-09 10:32 | PCM.PYCHPN ---
Psychiatric Progress Note - Psychiatric Progress Note Patient seen today, length of contact: 15 min Patient Chief Complaint: I was feeling depressed and suicidal. ' Problems Identified/Issues Discussed: Patient seen and evaluated, chart reviewed and discussed with the nurse. Patient remained disorganized and internally preoccupied. He still reports of hearing voices. Patient still appears paranoid and delusional. Patient reports withdrawal symptoms including nausea, headaches, cramps and sweating. He reports depressed mood and feelings of hopelessness and helplessness. Patient remained isolated, confined and withdrawn. Patient is compliant with medications and denies any side effects. Symptoms are improving but need more time to stabilize. Support and psychoeducation given. Medication Change: Yes (Methadone taper, start zoloft) Medical Record Reviewed: Yes Mental Status Examination - Cognitive Function Orientation: Person, Place, Situation, Time Memory: Intact Attention: Poor Concentration: Poor Association: Loose Fund of Knowledge: Poor - Mood Mood: Depressed, Anxious - Affect Affect: Broad, Other (labile) - Formal Thought Process Formal Thought Process: Delusions, Paranoia, Loosening of associations - Suicidal Ideation Suicidal Ideation: No - Homicidal Ideation Homicidal Ideation: No Goal/Treatment Plan - Goal/Treatment Plan Need for Continued Stay: Severe depression anxiety, Severe functional impairment Progress Toward Problem(s) and Goals/Treatment Plan: Schizoaffective disorder bipolar type CBT Psychoeducation Supportive therapy, group therapy, individual therapy Lamotrigine 100 mg PO BID Trazodone 50 mg by mouth daily at bedtime Seroquel 50 mg PO BID Zoloft 50 mg PO Daily Opioid use disorder severe CBT Psychoeducation Supportive therapy, individual therapy Use [place] for abstinence Opioid withdrawal CBT Psychoeducation Supportive therapy, individual therapy Clonidine when necessary Start methadone taper DM Monitor signs and symptoms Seizures Monitor signs and symptoms (Carbamazapine, Phenobarbital) Continue same medications - Smoking Cessation Smoking Cessation Initiated: No
[2017-08-10 06:33] VITALS: BP 113/81; PULSE 20; RESP 20; TEMP 98.2; O2SAT 95
--- NOTE | 2017-08-10 15:22 | PCM.PYCHDC ---
Mental Status Examination - Mental Status Examination Orientation: Person, Place, Situation, Time Memory: Intact Mood: Neutral Affect: Other (Appropriate) Speech: Appropriate Attention: WNL Concentration: WNL Association: WNL Fund of Knowledge: WNL Formal Thought Process: No Impairment Description of patient's judgement and insight: Fair Psychotic Thoughts and Behaviors: None Suicidal Ideation: No Current Homicidal Ideation?: Yes Discharge Summary - Discharge Note Reason for Hospitalization: Schizoaffective disorder bipolar type Opiate use disorder severe. Laboratory Data: Abnormal Lab Results 08/07/17 17:58 Lamotrigine <0.5 L Consultations:: List each consultation separately and include: 1. Reason for request. 2. Findings. 3. Follow-up Summary of Hospital Course include:: 1. Description of specific treatment plan utilized for patients during their course of treatmen. 2. Summarize the time- course for resolution of acute symptoms and/or regressed behaviors. 3. Describe issues identified and worked on during hospitalization. 4. Describe medication utilized. 5. Describe medical problems identified and treated. 6. Reassessment of suicide risk Summary of Hospital Course: Pt is a 41 y/o male, who lives with his cousin and has 4 adult children, came to the ED with depression and suicidal ideations. Jack Spinner is familer with this patient. Pt has been hospitalized multiple times at [facility] for similar episodes. He was recently discharged almost 4 moths ago. Pt reported in the ED that, ' he is feeling depressed depressed with passive suicidal ideation with no plan for few weeks. Today, he reports his suicidal thoughts intensive so he brought himself to the ED. He states he is self-medicating his depression with heroin and is feeling helpless and hopeless. Patient reports non-compliance with outpatient treatment or medication. He reports he is not trusting of himself regarding his safety. He repeatedly stated, 'I am liable of taking my life,' 'I need help.' Patient was observed with multiple, deep, healed cuts on both of his forearms that he is deeply scratching during the assessment. He reports that contributory to his depression, since last night hes been attempting to reopen the healed scars with sharp items in attempt to harm himself. Patient appears depressed, helpless, hopeless, and worthless. He is malodorous and unkempt while in the ED and reports he is not attending to his ADLs. Patient also reports intravenously using 10 bags of heroin daily for the past 26 years and has a desire to stop using. Initially pt remained depressed, isolated and withdrawn in the unit. He reported withdrawal symptoms from heroin including, nausea, vomiting, diarrhoea , back pains and joint pains. Pt appeared disheveled. Later, he became irritable , agitated and loud with slurred speech pattern. Pt denies alcohol and other illicit drug use. During his stay in the hospital patient was treated with methadone and Ativan when necessary. He was also started and other supporting medications. Patient was doing good. Today patient decided to leave the unit as patient was feeling better. Education provided to complete the treatment, patient refused. Patient reported feeling much better and denied any withdrawal symptoms. At the time of evaluation and discharge, patient was awake alert oriented oriented 3, had no delusions, no auditory or visual hallucinations, no suicidal ideations or homicidal ideations. Patient was discharged in a stable condition. - Final Diagnosis (DSM 5) Condition upon Discharge: STABLE Disposition: HOME/ ROUTINE - Smoking Cessation Smoking Cessation Medication prescribed: No - Antipsychotic Medications Pt discharged on 2 or more routine antipsychotic medications: No
[2017-08-11] MEDS ORDERED: Pneumococcal 23-Valent Vaccine IM ONE (10:00)
== END 2017-08-10 14:35 | disposition home or self-care (01) | DRG 430 ==
LOC: C.ER 17:16 → C.5E 21:24
PROVIDERS: ADMIT Psychiatry & Neurology Psychiatry; ATTEND Psychiatry & Neurology Psychiatry
PROC: GZ3ZZZZ Medication Management (ICD-10-PCS; principal; 2017-08-07)
PROC: GZHZZZZ Group Psychotherapy (ICD-10-PCS; 2017-08-07)
PROC: GZ56ZZZ Individual Psychotherapy, Supportive (ICD-10-PCS; 2017-08-07)
PROC: HZ89ZZZ Medication Management for Substance Abuse Treatment, Other Replacement Medication (ICD-10-PCS; 2017-08-07)
PROC: HZ2ZZZZ Detoxification Services for Substance Abuse Treatment (ICD-10-PCS; 2017-08-07)
DX: F25.0 Schizoaffective disorder, bipolar type (principal); R45.851 Suicidal ideations; F11.23 Opioid dependence with withdrawal; R56.9 Unspecified convulsions; E11.9 Type 2 diabetes mellitus without complications; F17.210 Nicotine dependence, cigarettes, uncomplicated; F60.9 Personality disorder, unspecified; J32.9 Chronic sinusitis, unspecified; I10 Essential (primary) hypertension; Z21 Asymptomatic human immunodeficiency virus [HIV] infection status; Z79.899 Other long term (current) drug therapy; Z87.891 Personal history of nicotine dependence; Z91.14 Patient's other noncompliance with medication regimen; Z91.19 Patient's noncompliance with other medical treatment and regimen; Z91.5 Personal history of self-harm

== ENCOUNTER 2017-09-14 23:05 | Emergency (ER) | payer MEDICAID ==
[2017-09-14 23:06] VITALS: BMI 18.6
--- NOTE | 2017-09-15 00:13 | C.PDOC ---
History Of Present Illness Patient presents to the ER requesting heroin detox. Explained to patient there are no beds available anywhere at this time, given list of referral numbers to call. Denies any suicidal or homicidal ideation. Patient refuses to be examined. Time Seen by Provider: 09/15/17 00:11 Chief Complaint (Nursing): Substance Abuse Past Medical History Vital Signs: Last Vital Signs Temp 98.6 F 09/14/17 23:54 Pulse 84 09/14/17 23:54 Resp 14 09/14/17 23:54 BP 114/78 09/14/17 23:54 Pulse Ox 96 09/15/17 00:13 - Medical History PMH: Anxiety, Bipolar Disorder, Depression, HIV, HTN, Personality Disorder, Pneumonia, Schizophrenia, Seizures Denies: Diabetes, Hepatitis, Chronic Kidney Disease, Sexually Transmitted Disease - [facility] Procedures ALCOHOL DETOXIFICATION (10/23/14) CENTRAL VENOUS CATHETER PLACEMENT WITH GUIDANCE (08/27/14) CLOSURE SKIN & SUBCUTANEOUS NEC (01/02/14) DETOXIFICATION SERVICES FOR SUBSTANCE ABUSE TREATMENT (08/07/17) DPT ADMINISTRATION (08/11/14) GROUP RECREATION CLERK FOR SUBSTANCE ABUSE TREATMENT, PSYCHOEDUCATION (04/06/17) GROUP RECREATION CLERK FOR SUBSTANCE ABUSE, COGNITIVE BEHAVIORAL (04/06/17) GROUP PSYCHOTHERAPY (08/07/17) INDIV PSYCHOTHERAPY FOR SUBSTANCE ABUSE TREATMENT, SUPPORT (04/06/17) INDIV PSYCHOTHERAPY FOR SUBSTANCE ABUSE, COGNITIV BEHAVIORAL (04/06/17) INDIV PSYCHOTHERAPY FOR SUBSTANCE ABUSE, PSYCHOEDUCATION (04/06/17) INDIVID PSYCHOTHERAP NEC (12/17/14) INDIVIDUAL PSYCHOTHERAPY, COGNITIVE-BEHAVIORAL (06/03/17) INDIVIDUAL PSYCHOTHERAPY, SUPPORTIVE (08/07/17) INJECT/INFUSE NEC (05/27/13) MEDICATION MANAGEMENT (08/07/17) MEDS MGMT FOR SUBSTANCE ABUSE TREATMENT, OTH REPL MED (08/07/17) OTHER GROUP THERAPY (04/04/14) PSYCHIAT DRUG THERAP NEC (12/17/14) VENOUS PUNCTURE NEC (05/27/13) Family History: States: Unknown Family Hx - Social History Hx Tobacco Use: Yes Hx Alcohol Use: Yes (3 beer) Hx Substance Use: Yes - Immunization History Hx Tetanus Toxoid Vaccination: No Hx Influenza Vaccination: Yes (states ''in [place]'') Hx Pneumococcal Vaccination: No ED Course And Treatment O2 Sat by Pulse Oximetry: 96 Disposition Counseled Patient/Family Regarding: Diagnosis, Need For Followup - Disposition Referrals: [facility] [Outside] Disposition Time: 00:12 Condition: FAIR Instructions: Narcotic Abuse (ED) Forms: [facility] (Kinyarwanda) - Clinical Impression Clinical Impression: Heroin abuse - Scribe Statement The provider has reviewed the documentation as recorded by the Scribe [address] All medical record entries made by the Scribe were at my direction and personally dictated by me. I have reviewed the chart and agree that the record accurately reflects my personal performance of the history, physical exam, medical decision making, and the department course for this patient. I have also personally directed, reviewed, and agree with the discharge instructions and disposition.
[2017-09-15 01:59] VITALS: BP 128/80; PULSE 82; RESP 20; TEMP 98; O2SAT 97
== END 2017-09-15 01:57 | disposition home or self-care (01) ==
LOC: C.ER 23:05
DX: F11.10 Opioid abuse, uncomplicated (principal)

== ENCOUNTER 2017-09-26 12:36 | Emergency (ER) | payer MEDICAID ==
[2017-09-26 12:37] VITALS: BMI 18.6
[2017-09-26 13:04] VITALS: BP 124/78; PULSE 90; RESP 10; TEMP 98.2; O2SAT 97
[2017-09-26] MEDS ORDERED: Sodium Chloride 0.9% 1,000 ML IV ONE (13:20)
[2017-09-26 14:05] LABS: BASO # 0.1 K/uL (0.0-0.2); BASO % 0.8 % (0.0-2.0); EOS # 0.1 K/uL (0.0-0.7); EOS % 1.3 % (0.0-4.0); HEMOGLOBIN 13.1 g/dL (12.0-18.0); LYMPH # 1.3 K/uL (1.0-4.3); LYMPH % 20.7 % (20.0-40.0); MEAN CELL VOLUME 87.5 fL (80.0-94.0); MEAN CORPUSCULAR HEMOGLOBIN 29.5 pg (27.0-31.0); MEAN CORPUSCULAR HGB CONC 33.8 g/dL (33.0-37.0); MONO # 0.4 K/uL (0.0-0.8); MONO % 6.8 % (0.0-10.0); NEUT # 4.4 K/uL (1.8-7.0); NEUT % 70.4 % (50.0-75.0); NRBC % 0.1 % (0.0-2.0); RBC 4.45 Mil/uL (4.40-5.90); WHITE BLOOD COUNT 6.2 K/uL (4.8-10.8)
[2017-09-26 15:15] LABS: ALB/GLOB RATIO 1.5 (1.0-2.1); ALBUMIN 4.2 g/dL (3.5-5.0); ALT/SGPT 37 U/L (21-72); AST/SGOT 35 U/L (17-59); BLOOD UREA NITROGEN 11 mg/dL (9-20); CALCIUM 9.1 mg/dl (8.6-10.4); GFR AFRICAN-AMERICAN > 60; GFR NON-AFRICAN AMERICAN > 60; MAGNESIUM 1.7 mg/dL (1.6-2.3)
[2017-09-26 15:21] LABS: URINE BILIRUBIN NEGATIVE (NEGATIVE); URINE BLOOD NEGATIVE (NEGATIVE); URINE CLARITY Clear (Clear); URINE COLOR YELLOW (YELLOW); URINE GLUCOSE (UA) NEGATIVE (Normal); URINE LEUKOCYTE ESTERASE NEGATIVE Leu/uL (Negative); URINE NITRATE NEGATIVE (NEGATIVE); URINE PROTEIN NEGATIVE (NEGATIVE); URINE UROBILINOGEN 0.2 mg/dL (0.2-1.0)
[2017-09-26 15:39] LABS: BENZODIAZEPINES, UR NEGATIVE (NEGATIVE); PHENCYCLIDINE, UR NEGATIVE (NEGATIVE)
[2017-09-26 15:46] LABS: BARBITURATES, UR POSITIVE (NEGATIVE); OPIATES, UR POSITIVE (NEGATIVE)
--- NOTE | 2017-09-26 15:51 | C.PDOC ---
Time Seen by Provider: 09/26/17 13:10 Chief Complaint (Nursing): Seizure History Per: Patient, EMS Recent Seizure Activity Began: Just Before Arrival Number Of Seizures: One Length Of Seizures (Duration): Unknown Quality Of Seizure: Generalized Precipitating Factor(s): Missed Dose Of Anti-seizure Medication, Recent Street Drugs Post-ictal Period: Duration Unknown Severity: Moderate Additional History Per: Prior Records Past Medical History Reviewed: Historical Data, Nursing Documentation, Vital Signs Vital Signs: Last Vital Signs Temp 98.2 F 09/26/17 12:58 Pulse 90 09/26/17 12:58 Resp 10 L 09/26/17 12:58 BP 124/78 09/26/17 12:58 Pulse Ox 97 09/26/17 12:58 - Medical History PMH: Anxiety, Bipolar Disorder, Depression, HIV, HTN, Personality Disorder, Pneumonia, Schizophrenia, Seizures - [facility] Procedures ALCOHOL DETOXIFICATION (10/23/14) CENTRAL VENOUS CATHETER PLACEMENT WITH GUIDANCE (08/27/14) CLOSURE SKIN & SUBCUTANEOUS NEC (01/02/14) DETOXIFICATION SERVICES FOR SUBSTANCE ABUSE TREATMENT (08/07/17) DPT ADMINISTRATION (08/11/14) GROUP BIG DATA PLATFORM ARCHITECT FOR SUBSTANCE ABUSE TREATMENT, PSYCHOEDUCATION (04/06/17) GROUP BIG DATA PLATFORM ARCHITECT FOR SUBSTANCE ABUSE, COGNITIVE BEHAVIORAL (04/06/17) GROUP PSYCHOTHERAPY (08/07/17) INDIV PSYCHOTHERAPY FOR SUBSTANCE ABUSE TREATMENT, SUPPORT (04/06/17) INDIV PSYCHOTHERAPY FOR SUBSTANCE ABUSE, COGNITIV BEHAVIORAL (04/06/17) INDIV PSYCHOTHERAPY FOR SUBSTANCE ABUSE, PSYCHOEDUCATION (04/06/17) INDIVID PSYCHOTHERAP NEC (12/17/14) INDIVIDUAL PSYCHOTHERAPY, COGNITIVE-BEHAVIORAL (06/03/17) INDIVIDUAL PSYCHOTHERAPY, SUPPORTIVE (08/07/17) INJECT/INFUSE NEC (05/27/13) MEDICATION MANAGEMENT (08/07/17) MEDS MGMT FOR SUBSTANCE ABUSE TREATMENT, OTH REPL MED (08/07/17) OTHER GROUP THERAPY (04/04/14) PSYCHIAT DRUG THERAP NEC (12/17/14) VENOUS PUNCTURE NEC (05/27/13) Family History: States: Unknown Family Hx - Social History Hx Tobacco Use: Yes Hx Alcohol Use: Yes (3 beer) Hx Substance Use: Yes - Immunization History Hx Tetanus Toxoid Vaccination: No Hx Influenza Vaccination: Yes (states ''in [place]'') Hx Pneumococcal Vaccination: No Review Of Systems Constitutional: Negative for: Fever Cardiovascular: Negative for: Chest Pain Respiratory: Negative for: Shortness of Breath Gastrointestinal: Negative for: Vomiting, Abdominal Pain Musculoskeletal: Negative for: Neck Pain Skin: Negative for: Rash Neurological: Positive for: Seizures. Negative for: Weakness, Numbness Psych: Negative for: Suicidal ideation Physical Exam - Physical Exam Appears: Non-toxic, No Acute Distress Skin: Normal Color, Warm, Dry, No Rash Head: Atraumatic, Normacephalic Eye(s): bilateral: PERRL, EOMI Tongue: Normal Appearing, No Bite Neck: Normal ROM, No Midline Cervical Tenderness, No Step Off Deformity, Supple Cardiovascular: Rhythm Regular Respiratory: Normal Breath Sounds, No Accessory Muscle Use Gastrointestinal/Abdominal: Soft, No Tenderness Extremity: Normal ROM, No Deformity Neurological/Psych: Oriented x3, Normal Motor, Normal Sensation, Slow To Respond With Command ED Course And Treatment - Laboratory Results Result Diagrams: 09/26/17 14:01 09/26/17 15:07 Lab Interpretation: No Acute Changes O2 Sat by Pulse Oximetry: 97 Pulse Ox Interpretation: Normal Progress - Interventions Interventions:: Observation, Intravenous fluid - Data Reviewed Data Reviewed: Lab, Old records - Patient Status Patient status: Mostly improved - Continuity of Care Discussed patient case with:: Patient, ED Nurse - Patient Plan Patient Plan: Discharge, F/U with PCP, Continue present meds Medical Decision Making Medical Decision Making: Pt states that he ran out of his Phenobarbital and Tegretol last night and is requesting a refill of Rx. Disposition Counseled Patient/Family Regarding: Studies Performed, Diagnosis, Need For Followup, Rx Given - Disposition Disposition: HOME/ ROUTINE Disposition Time: 15:54 Condition: IMPROVED Additional Instructions: Take you medications as prescribed. Avoid illicit drugs. Follow up with your neurologist and primary doctor for further evaluation and treatment. Return to the ER if you develop another seizure, worsening of symptoms or if you have any other concerns. Prescriptions: carBAMazepine [TEGretol] 200 mg PO BID #60 tab Phenobarbital 60 mg PO BID #60 tab Instructions: Epilepsy (ED) - Clinical Impression Clinical Impression: Epileptic seizure
[2017-09-30 09:41] LABS: LAMOTRIGINE <0.5 mcg/mL (4.0-18.0)
== END 2017-09-26 15:54 | disposition home or self-care (01) ==
LOC: C.ER 12:36
DX: G40.909 Epilepsy, unspecified, not intractable, without status epilepticus (principal)

== ENCOUNTER 2017-10-12 07:23 | Emergency (ER) | payer MEDICAID ==
[2017-10-12 07:24] VITALS: BMI 18.6
[2017-10-12 07:36] VITALS: TEMP 98.6
[2017-10-12] MEDS ORDERED: Sodium Chloride 0.9% 1,000 ML IV ONE (07:50)
--- NOTE | 2017-10-12 07:56 | C.PDOC ---
History Of Present Illness 41 y/o male presents to ED by EMS stating he used heroin intra-nasally 4 hours ago. Patient complains he is not feeling well, has body pain, abdominal cramping and had few episodes of diarrhea. Denies alcohol use. Pt states he feels like he might get a seizure, did not take his medications this morning. Time Seen by Provider: 10/12/17 07:34 Chief Complaint (Nursing): Substance Abuse History Per: Patient History/Exam Limitations: no limitations Onset/Duration Of Symptoms: Hrs (4) Current Symptoms Are (Timing): Still Present Suicide/Self Injury Attempted (Context): None Modifying Factor(s): Narcotics Associated Symptoms: denies: Anger, Depression, Suicidal Thoughts, Suicidal Plan Involuntary Hold By: None Recent travel outside of the [place]: No Past Medical History Reviewed: Historical Data, Nursing Documentation, Vital Signs Vital Signs: Last Vital Signs Temp 98.6 F 10/12/17 07:32 Pulse 64 10/12/17 10:20 Resp 16 10/12/17 10:20 BP 143/92 H 10/12/17 10:20 Pulse Ox 100 10/12/17 10:20 - Medical History PMH: Anxiety, Bipolar Disorder, Depression, HIV, HTN, Personality Disorder, Pneumonia, Schizophrenia, Seizures - [facility] Procedures ALCOHOL DETOXIFICATION (10/23/14) CENTRAL VENOUS CATHETER PLACEMENT WITH GUIDANCE (08/27/14) CLOSURE SKIN & SUBCUTANEOUS NEC (01/02/14) DETOXIFICATION SERVICES FOR SUBSTANCE ABUSE TREATMENT (08/07/17) DPT ADMINISTRATION (08/11/14) GROUP FURNITURE TECHNICIAN FOR SUBSTANCE ABUSE TREATMENT, PSYCHOEDUCATION (04/06/17) GROUP FURNITURE TECHNICIAN FOR SUBSTANCE ABUSE, COGNITIVE BEHAVIORAL (04/06/17) GROUP PSYCHOTHERAPY (08/07/17) INDIV PSYCHOTHERAPY FOR SUBSTANCE ABUSE TREATMENT, SUPPORT (04/06/17) INDIV PSYCHOTHERAPY FOR SUBSTANCE ABUSE, COGNITIV BEHAVIORAL (04/06/17) INDIV PSYCHOTHERAPY FOR SUBSTANCE ABUSE, PSYCHOEDUCATION (04/06/17) INDIVID PSYCHOTHERAP NEC (12/17/14) INDIVIDUAL PSYCHOTHERAPY, COGNITIVE-BEHAVIORAL (06/03/17) INDIVIDUAL PSYCHOTHERAPY, SUPPORTIVE (08/07/17) INJECT/INFUSE NEC (05/27/13) MEDICATION MANAGEMENT (08/07/17) MEDS MGMT FOR SUBSTANCE ABUSE TREATMENT, OTH REPL MED (08/07/17) OTHER GROUP THERAPY (04/04/14) PSYCHIAT DRUG THERAP NEC (12/17/14) VENOUS PUNCTURE NEC (05/27/13) Family History: States: Unknown Family Hx - Social History Hx Tobacco Use: Yes Hx Alcohol Use: Yes (3 beer) Hx Substance Use: Yes - Immunization History Hx Tetanus Toxoid Vaccination: No Hx Influenza Vaccination: Yes (states ''in [place]'') Hx Pneumococcal Vaccination: No Review Of Systems Constitutional: Negative for: Fever, Chills Cardiovascular: Negative for: Chest Pain, Palpitations Gastrointestinal: Positive for: Abdominal Pain (cramping), Diarrhea Musculoskeletal: Positive for: Other (body pain) Neurological: Negative for: Weakness, Numbness Psych: Negative for: Suicidal ideation Physical Exam - Physical Exam Appears: Non-toxic, No Acute Distress, Unkempt Skin: Normal Color, Warm, Dry Head: Atraumatic, Normacephalic Eye(s): bilateral: Normal Inspection, PERRL, EOMI Oral Mucosa: Moist Teeth: Other (Poor dentition) Neck: Normal ROM Chest: Symmetrical, No Tenderness Cardiovascular: Rhythm Regular Respiratory: Normal Breath Sounds, No Decreased Breath Sounds, No Rales, No Rhonchi, No Wheezing Gastrointestinal/Abdominal: Bowel Sounds (active), Soft, Tenderness (mild diffuse ), No Distention, No Guarding, No Rebound Extremity: Normal ROM, No Pedal Edema Neurological/Psych: Oriented x3, Normal Speech, Other (no focal deficits) ED Course And Treatment - Laboratory Results Result Diagrams: 10/12/17 09:02 10/12/17 09:02 Lab Interpretation: No Acute Changes O2 Sat by Pulse Oximetry: 99 (RA) Pulse Ox Interpretation: Normal Medical Decision Making Medical Decision Making: Impression: opiate abuse Plan: * Labs * IV NS Progress: Patient observed in ED for few hours. Labs reviewed with no acute findings. Patient remained afebrile and arousable. IV fluids finished infusing. Patient has stable vital signs and to be discharged. Disposition Counseled Patient/Family Regarding: Diagnosis, Need For Followup - Disposition Disposition: HOME/ ROUTINE Disposition Time: 10:01 Condition: STABLE Additional Instructions: [facility] at [address] [place] [address]. Please call [phone] or ext [phone] to arrange appointment. If you need to speak to someone immediately call Crisis Hotline [phone] Please call [phone] or [phone] to inquire about our Detox availability , may speak to coordinator Little Instructions: Opioid Use Disorder Forms: [facility] (Mohawk) - POA Present On Arrival: None - Clinical Impression Clinical Impression: Opiate abuse, episodic - PA / ARCHITECTURAL EXAMINER / Resident Statement MD/DO has reviewed & agrees with the documentation as recorded. - Scribe Statement The provider has reviewed the documentation as recorded by the Scribdonte Stovall All medical record entries made by the Mickey were at my direction and personally dictated by me. I have reviewed the chart and agree that the record accurately reflects my personal performance of the history, physical exam, medical decision making, and the department course for this patient. I have also personally directed, reviewed, and agree with the discharge instructions and disposition.
[2017-10-12] MEDS ORDERED: Sodium Chloride 0.9% 1,000 ML ONE (08:03)
[2017-10-12 08:59] LABS: URINE BILIRUBIN NEGATIVE (NEGATIVE); URINE BLOOD NEGATIVE (NEGATIVE); URINE CLARITY Clear (Clear); URINE COLOR Colorless (YELLOW); URINE GLUCOSE (UA) NORMAL (Normal); URINE LEUKOCYTE ESTERASE NEG Leu/uL (Negative); URINE NITRATE NEGATIVE (NEGATIVE); URINE PROTEIN NEGATIVE (NEGATIVE); URINE UROBILINOGEN NORMAL mg/dL (0.2-1.0)
[2017-10-12 09:09] LABS: BASO % 0.8 % (0.0-2.0); EOS # 0.1 K/uL (0.0-0.7); EOS % 3.8 % (0.0-4.0); HEMOGLOBIN 12.3 g/dL (12.0-18.0); LYMPH # 0.9 K/uL (1.0-4.3); LYMPH % 21.9 % (20.0-40.0); MEAN CORPUSCULAR HEMOGLOBIN 29.9 pg (27.0-31.0); MEAN CORPUSCULAR HGB CONC 34.4 g/dL (33.0-37.0); MEAN PLATELET VOLUME 9.4 fL (7.2-11.7); MONO # 0.3 K/uL (0.0-0.8); MONO % 6.5 % (0.0-10.0); NEUT # 2.6 K/uL (1.8-7.0); RBC 4.11 Mil/uL (4.40-5.90); RED CELL DISTRIBUTION WIDTH 14.1 % (11.5-14.5); WHITE BLOOD COUNT 3.9 K/uL (4.8-10.8)
[2017-10-12 09:20] LABS: BENZODIAZEPINES, UR NEGATIVE (NEGATIVE)
[2017-10-12 09:40] LABS: ALT/SGPT 29 U/L (21-72); BLOOD UREA NITROGEN 11 mg/dL (9-20); CALCIUM 8.8 mg/dl (8.6-10.4); GFR AFRICAN-AMERICAN > 60; GFR NON-AFRICAN AMERICAN > 60
[2017-10-12 09:45] LABS: BARBITURATES, UR POSITIVE (NEGATIVE); OPIATES, UR POSITIVE (NEGATIVE)
[2017-10-12 09:46] LABS: ALBUMIN 3.7 g/dL (3.5-5.0)
[2017-10-12 09:58] LABS: ALB/GLOB RATIO 1.2 (1.0-2.1); AST/SGOT 27 U/L (17-59)
[2017-10-12 10:03] VITALS: RESP 16
[2017-10-12 10:06] LABS: PHENCYCLIDINE, UR NEGATIVE (NEGATIVE)
[2017-10-12 10:21] VITALS: BP 143/92; PULSE 64
[2017-10-12 17:14] VITALS: O2SAT 99
== END 2017-10-12 10:28 | disposition home or self-care (01) ==
LOC: C.ER 07:23
DX: F11.10 Opioid abuse, uncomplicated (principal); I10 Essential (primary) hypertension; F31.9 Bipolar disorder, unspecified; F17.210 Nicotine dependence, cigarettes, uncomplicated
CPT/HCPCS: 80053; 80320; 80324; 80345; 80346; 80349; 80353; 80358; 80361; 81001; 83992; 85025; 96361; 96374; 99285; J2405; J7040

== ENCOUNTER 2017-10-24 17:45 | Emergency (ER) | payer MEDICAID ==
[2017-10-24 17:46] VITALS: BMI 18.6
[2017-10-24] MEDS ORDERED: carBAMazepine Chew Tab 100 MG Chew Tab PO STA (19:54)
--- NOTE | 2017-10-24 19:58 | C.PDOC ---
History Of Present Illness 41 yr old male presents to the ER requesting medicine refill. Patient is in ER on a monthly bases requesting refill of Phenobarbital 100 daily, Tegretol 200 3x a day and Lisinopril 10mg daily. Patient is homeless. Denies fever, chills, chest pain, SOB, SI or HI. Time Seen by Provider: 10/24/17 19:42 Chief Complaint (Nursing): Seizure History Per: Patient History/Exam Limitations: no limitations Onset/Duration Of Symptoms: Days Past Medical History Reviewed: Historical Data, Nursing Documentation, Vital Signs Vital Signs: Last Vital Signs Temp 98.5 F 10/24/17 20:14 Pulse 76 10/24/17 20:14 Resp 22 10/24/17 20:14 BP 144/87 10/24/17 20:14 Pulse Ox 96 10/24/17 20:14 - Medical History PMH: Anxiety, Bipolar Disorder, Depression, HIV, HTN, Personality Disorder, Pneumonia, Schizophrenia, Seizures - [facility] Procedures ALCOHOL DETOXIFICATION (10/23/14) CENTRAL VENOUS CATHETER PLACEMENT WITH GUIDANCE (08/27/14) CLOSURE SKIN & SUBCUTANEOUS NEC (01/02/14) DETOXIFICATION SERVICES FOR SUBSTANCE ABUSE TREATMENT (08/07/17) DPT ADMINISTRATION (08/11/14) GROUP RADIO NEWS WRITER FOR SUBSTANCE ABUSE TREATMENT, PSYCHOEDUCATION (04/06/17) GROUP RADIO NEWS WRITER FOR SUBSTANCE ABUSE, COGNITIVE BEHAVIORAL (04/06/17) GROUP PSYCHOTHERAPY (08/07/17) INDIV PSYCHOTHERAPY FOR SUBSTANCE ABUSE TREATMENT, SUPPORT (04/06/17) INDIV PSYCHOTHERAPY FOR SUBSTANCE ABUSE, COGNITIV BEHAVIORAL (04/06/17) INDIV PSYCHOTHERAPY FOR SUBSTANCE ABUSE, PSYCHOEDUCATION (04/06/17) INDIVID PSYCHOTHERAP NEC (12/17/14) INDIVIDUAL PSYCHOTHERAPY, COGNITIVE-BEHAVIORAL (06/03/17) INDIVIDUAL PSYCHOTHERAPY, SUPPORTIVE (08/07/17) INJECT/INFUSE NEC (05/27/13) MEDICATION MANAGEMENT (08/07/17) MEDS MGMT FOR SUBSTANCE ABUSE TREATMENT, OTH REPL MED (08/07/17) OTHER GROUP THERAPY (04/04/14) PSYCHIAT DRUG THERAP NEC (12/17/14) VENOUS PUNCTURE NEC (05/27/13) Family History: States: No Known Family Hx - Social History Hx Tobacco Use: Yes Hx Alcohol Use: Yes (3 beer) Hx Substance Use: Yes - Immunization History Hx Tetanus Toxoid Vaccination: No Hx Influenza Vaccination: Yes (states ''in [place]'') Hx Pneumococcal Vaccination: No Review Of Systems Except As Marked, All Systems Reviewed And Found Negative. Constitutional: Negative for: Fever, Chills Cardiovascular: Negative for: Chest Pain Respiratory: Negative for: Shortness of Breath Psych: Negative for: Suicidal ideation Physical Exam - Physical Exam Appears: Non-toxic, No Acute Distress, Other (+ baseline, foul smelling, disheveled, continue alcohol use) Skin: Warm, Dry Respiratory: Normal Breath Sounds Extremity: Normal ROM, No Swelling Neurological/Psych: Oriented x3, Normal Speech ED Course And Treatment O2 Sat by Pulse Oximetry: 99 (RA) Pulse Ox Interpretation: Normal Medical Decision Making Medical Decision Making: well known local alcoholic/schizophrenic/seizure pt Usually presents about the first few days of the month to refill his meds lost to f/u with outpatient PMD/Clinic Has Medicaid to get meds no new s/s today + continued alcohol use. PLAN: * Phenobarbital PO * Tegretol PO * Lisinopril Disposition Doctor Will See Patient In The: Office Counseled Patient/Family Regarding: Studies Performed, Diagnosis - Disposition Referrals: [facility] [Outside] [facility] [Outside] [facility] [Outside] Disposition: HOME/ ROUTINE Disposition Time: 19:57 Condition: GOOD Additional Instructions: continue your medications as refilled: Phenobarbital: 97.2 mg daily (usually at night) Tegretol/Keppra 200 mg three times a day Lisinopril 10 mg daily (usually in the morning) Follow-up in our outpatient [facility] (free) for further eval and refills of your prescription meds. Prescriptions: carBAMazepine [TEGretol-XR] 200 mg PO TID #90 ter Lisinopril [Zestril] 10 mg PO DAILY #30 tab Phenobarbital 97.2 mg PO DAILY #30 tab Instructions: Epilepsy in Adults, Alcohol Abuse and Alcoholism (DC), Effects of Alcohol on Your Health, Where to Get Help Paying for Your Prescriptions Forms: [facility] (Yoruba) - Clinical Impression Clinical Impression: Alcohol abuse, Medication refill, Seizure disorder - Scribe Statement The provider has reviewed the documentation as recorded by the Mickey Gallego Provider Attestation: All medical record entries made by the Scribe were at my direction and personally dictated by me. I have reviewed the chart and agree that the record accurately reflects my personal performance of the history, physical exam, medical decision making, and the department course for this patient. I have also personally directed, reviewed, and agree with the discharge instructions and disposition.
[2017-10-24 20:15] VITALS: BP 144/87; PULSE 76; RESP 22; TEMP 98.5
[2017-10-24 20:49] VITALS: O2SAT 99
== END 2017-10-24 20:45 | disposition home or self-care (01) ==
LOC: C.ER 17:45
DX: G40.909 Epilepsy, unspecified, not intractable, without status epilepticus (principal); F10.10 Alcohol abuse, uncomplicated; Y90.9 Presence of alcohol in blood, level not specified; Z76.0 Encounter for issue of repeat prescription

== ENCOUNTER 2017-11-08 14:25 | Inpatient (IN) | payer MEDICAID ==
[2017-11-08 14:26] VITALS: BMI 18.6
[2017-11-08] MEDS ORDERED: Sodium Chloride 0.9% 1,000 ML IV ONE (14:47)
--- NOTE | 2017-11-08 15:05 | C.PDOC ---
History Of Present Illness 41 y/o male brought to ED by EMS for heroin and ETOH abuse. As per EMS patient claimed "I want to , I want to bleed" and states "I did a lot of heroin, it wasn't good". At ED patient is responsive to painful stimuli, slow to answer further questions secondary to intoxication. He complains of left neck pain, denies injecting at site or fall. Poor historian. Time Seen by Provider: 11/08/17 14:43 Chief Complaint (Nursing): Substance Abuse History Per: EMS History/Exam Limitations: intoxication Onset/Duration Of Symptoms: Hrs Suicide/Self Injury Attempted (Context): None Modifying Factor(s): Narcotics Associated Symptoms: Depression, Suicidal Thoughts Past Medical History Reviewed: Historical Data, Nursing Documentation, Vital Signs Vital Signs: Last Vital Signs Temp 97.8 F 11/08/17 14:37 Pulse 76 11/08/17 14:37 Resp 10 L 11/08/17 14:37 BP 135/86 11/08/17 14:37 Pulse Ox 94 L 11/08/17 15:47 - Medical History PMH: Anxiety, Bipolar Disorder, Depression, HIV, HTN, Personality Disorder, Pneumonia, Schizophrenia, Seizures Surgical History: No Surg Hx - [facility] Procedures ALCOHOL DETOXIFICATION (10/23/14) CENTRAL VENOUS CATHETER PLACEMENT WITH GUIDANCE (08/27/14) CLOSURE SKIN & SUBCUTANEOUS NEC (01/02/14) DETOXIFICATION SERVICES FOR SUBSTANCE ABUSE TREATMENT (08/07/17) DPT ADMINISTRATION (08/11/14) GROUP PRODUCTION SUPPORT DEVELOPER FOR SUBSTANCE ABUSE TREATMENT, PSYCHOEDUCATION (04/06/17) GROUP PRODUCTION SUPPORT DEVELOPER FOR SUBSTANCE ABUSE, COGNITIVE BEHAVIORAL (04/06/17) GROUP PSYCHOTHERAPY (08/07/17) INDIV PSYCHOTHERAPY FOR SUBSTANCE ABUSE TREATMENT, SUPPORT (04/06/17) INDIV PSYCHOTHERAPY FOR SUBSTANCE ABUSE, COGNITIV BEHAVIORAL (04/06/17) INDIV PSYCHOTHERAPY FOR SUBSTANCE ABUSE, PSYCHOEDUCATION (04/06/17) INDIVID PSYCHOTHERAP NEC (12/17/14) INDIVIDUAL PSYCHOTHERAPY, COGNITIVE-BEHAVIORAL (06/03/17) INDIVIDUAL PSYCHOTHERAPY, SUPPORTIVE (08/07/17) INJECT/INFUSE NEC (05/27/13) MEDICATION MANAGEMENT (08/07/17) MEDS MGMT FOR SUBSTANCE ABUSE TREATMENT, OTH REPL MED (08/07/17) OTHER GROUP THERAPY (04/04/14) PSYCHIAT DRUG THERAP NEC (12/17/14) VENOUS PUNCTURE NEC (05/27/13) Family History: States: No Known Family Hx - Social History Hx Tobacco Use: Yes Hx Alcohol Use: Yes (3 beer) Hx Substance Use: Yes - Immunization History Hx Tetanus Toxoid Vaccination: No Hx Influenza Vaccination: Yes (states ''in [place]'') Hx Pneumococcal Vaccination: No Review Of Systems Review Of Systems: ROS cannot be obtained secondary to pt's inabilty to answer questions. (Patient is intoxicated) Physical Exam - Physical Exam Appears: Unkempt Skin: Warm, Dry, No Rash, Other (Track martini, multiple abrasions and scars from prior cutting to bilateral arms and legs) Head: Atraumatic, Normacephalic Eye(s): bilateral: EOMI, Other (pin point pupils) Nose: Normal Oral Mucosa: Moist Neck: Normal ROM, Trachea Midline, No Midline Cervical Tenderness, No Paracervical Tenderness, Supple, No Other (no swelling, erythema, bulging or mass) Cardiovascular: Rhythm Regular, No Murmur Respiratory: Normal Breath Sounds, No Rales, No Rhonchi, No Wheezing Gastrointestinal/Abdominal: Soft, No Tenderness, No Guarding, No Rebound Extremity: No Pedal Edema Neurological/Psych: Slow To Respond With Command, Other (Responds to painful stimuli) ED Course And Treatment - Laboratory Results Result Diagrams: 11/08/17 15:25 11/08/17 15:25 O2 Sat by Pulse Oximetry: 94 (RA) Pulse Ox Interpretation: Normal Medical Decision Making Medical Decision Making: Impression: drug abuse, depressive episode Plan: Blood work, 1:1 ordered, Crisis evaluation Labs ordered and reviewed. UDS +opiates and benzo. In my clinical judgment patient is medically cleared and stable for psychiatric admission PES discussed case with psych religious education coordinator Dr Alvarez accepted patient for Major depression and opiate dependence. Disposition - Disposition Disposition: HOSPITALIZED Disposition Time: 17:10 Condition: STABLE - POA Present On Arrival: None - Clinical Impression Clinical Impression: Opiate dependence, Major depression - PA / SUBSTITUTE CROSSING GUARD / Resident Statement MD/DO has reviewed & agrees with the documentation as recorded. - Scribe Statement The provider has reviewed the documentation as recorded by the Scribe Tashia Horn All medical record entries made by the Scribe were at my direction and personally dictated by me. I have reviewed the chart and agree that the record accurately reflects my personal performance of the history, physical exam, medical decision making, and the department course for this patient. I have also personally directed, reviewed, and agree with the discharge instructions and disposition. Decision To Admit - Pt Status Changed To: Hospital Disposition Of: Inpatient - Admit Certification Admit to Inpatient:: After my assessment, the patient will require hospitalization for at least two midnights. This is because of the severity of symptoms shown, intensity of services needed, and/or the medical risk in this patient being treated as an outpatient. - InPatient: Physician Admission Certification: I certify that this patient requires 2 or more midnights of care for the following reason:: Dr Alvarez accepted patient to psych unit for Major depression and opiate dependence. - . Bed Request Type: Psychiatry Admitting Physician: Abel Alvarez Patient Diagnosis: Opiate dependence, Major depression
[2017-11-08 15:35] LABS: BASO # 0.1 K/uL (0.0-0.2); BASO % 0.7 % (0.0-2.0); EOS # 0.2 K/uL (0.0-0.7); EOS % 2.6 % (0.0-4.0); HEMOGLOBIN 15.2 g/dL (12.0-18.0); LYMPH # 1.4 K/uL (1.0-4.3); LYMPH % 17.9 % (20.0-40.0); MEAN CELL VOLUME 87.5 fL (80.0-94.0); MEAN CORPUSCULAR HEMOGLOBIN 29.2 pg (27.0-31.0); MEAN CORPUSCULAR HGB CONC 33.4 g/dL (33.0-37.0); MEAN PLATELET VOLUME 8.9 fL (7.2-11.7); MONO # 0.6 K/uL (0.0-0.8); MONO % 7.8 % (0.0-10.0); NEUT # 5.4 K/uL (1.8-7.0); NRBC % 0.2 % (0.0-2.0); RBC 5.22 Mil/uL (4.40-5.90); WHITE BLOOD COUNT 7.6 K/uL (4.8-10.8)
[2017-11-08 15:52] LABS: ALB/GLOB RATIO 1.1 (1.0-2.1); ALBUMIN 4.7 g/dL (3.5-5.0); ALT/SGPT 555 U/L (21-72); BLOOD UREA NITROGEN 13 mg/dL (9-20); CALCIUM 8.4 mg/dl (8.6-10.4); GFR AFRICAN-AMERICAN > 60; GFR NON-AFRICAN AMERICAN > 60
[2017-11-08 16:01] LABS: AST/SGOT 1127 U/L (17-59)
[2017-11-08 16:28] LABS: URINE BILIRUBIN NEGATIVE (NEGATIVE); URINE BLOOD NEGATIVE (NEGATIVE); URINE CLARITY Clear (Clear); URINE COLOR Yellow (YELLOW); URINE GLUCOSE (UA) NORMAL (Normal); URINE LEUKOCYTE ESTERASE NEG Leu/uL (Negative); URINE PROTEIN NEGATIVE (NEGATIVE); URINE UROBILINOGEN NORMAL mg/dL (0.2-1.0)
[2017-11-08 16:44] LABS: BENZODIAZEPINES, UR NEGATIVE (NEGATIVE); PHENCYCLIDINE, UR NEGATIVE (NEGATIVE)
[2017-11-08 17:04] LABS: BARBITURATES, UR POSITIVE (NEGATIVE); OPIATES, UR POSITIVE (NEGATIVE)
--- NOTE | 2017-11-08 19:55 | PCM.BM ---
<Genny Coe - Last Filed: 11/08/17 19:52> Treatment Plan Problems - Problems identified on initial assessmt Depression Date Initiated: 11/08/17 Time Initiated: 19:50 Assessment reference: NA Status: Active Substance Abuse Date Initiated: 11/09/15 Time Initiated: 19:50 Assessment reference: NA Status: Active Treatment assets and liabiliti Patient Assests: adapts well, cooperative, self-reliant, ADL independent, negotiates basic needs, cognitively intact, other Patient Liabilities: substance abuse - Milieu Protocol Maintain good personal hygiene: daily Encourage regular showers, every shift Remind patient to perform daily oral care, every shift Assist patient to perform ADL's Conduct patient checks and document Observation sheet: Q15 minutes Maintain personal safety: every shift Educate patient to report safety concerns to staff, every shift Monitor environment for contraband/sharps Medication safety: Monitor for expected outcome, potential side effects: every shift, Assess barriers to learning: every shift, Assess readiness for medication education: every shift <Abel Alvarez - Last Filed: 11/10/17 11:03> - Diagnosis (1) Bipolar disorder Status: Acute Interventions: 11/10/17 11:03 * Assess/adjust medications daily and /or as needed * See patient on an individual basis 7x/week to assess level of manic behaviors and stability * Discuss risks, benefits, side effects and alternatives of medications * (2) Opiate dependence Status: Acute Interventions: 11/10/17 11:03 * Assess 7x/week regarding severity of withdrawal * Educate regarding risks, benefits, side effects and alternatives of medications * Use Motivational Interviewing for abstinence * Use CBT for relapse prevention * Medication management for withdrawal symptoms * Encourage medication assisted treatment *
--- NOTE | 2017-11-09 09:39 | PCM.PSYCH ---
Initial Psychiatric Evaluation - Initial Psychiatric Evaluation Type of Admission: Voluntary Legal Status: Capacity Chief Complaint (in patient's own words): "I'm here only for heroin" History of Present Illness and Precipitating Events: Seen, case discussed with the staff and medocal team, chart reviewed Patient is a 41 year old AA male with an extensive psych history BIBA for endorsing SI. Patient on initial assessment told the crisis workers he want to bleed and . Patient who has a history of self-injury expressed his desire to cut himself. Patient describes this as a compulsion. Patient reports he last cut himself two days ago. Patient reported he was suicidal but would not disclose his plan. However, today, he denies it and says he was "high and drunk " yesterday. He now minimizes his sxs and wants to just get detox and leave. Patient reports IV heroin use and that he last used 10 bags earlier yesterday, and has wdw sxs now. Patient denies any other substance abuse and states he uses the heroin to self-medicate: to stop the pain. He drinks more than a pint daily Patient was most recently admitted to [facility] 08/07/17-08/10/17. Since discharge he has been med non-compliant. Past psych hx: Multiple admissions Medical: Hepatic failure, Hep C, HTN, Seizure d/o, possible HIV+, obese Current Medications: Active Medications Generic Name Dose Route Start Last Admin Trade Name Freq PRN Reason Stop Dose Admin Haloperidol 5 mg 11/08/17 20:35 Haldol PO Q6H PRN Agitation Hydroxyzine HCl 25 mg 11/08/17 20:27 Atarax PO Q6H PRN Anxiety Lisinopril 10 mg 11/09/17 10:00 Zestril PO DAILY YANNA Trazodone HCl 50 mg 11/08/17 20:27 Desyrel PO HS PRN Insomnia Past Psychiatric History - Past Psychiatric History Previous Treatment History: Inpatient Pertinent Medical Hx (Current Medical&Sleep Prob, Allergies): Allergies Allergy/AdvReac Type Severity Reaction Status Date / Time lactose Allergy DIARRHEA Verified 10/24/17 18:48 fluphenazine [From Prolixin] AdvReac SWELLING Verified 10/24/17 18:48 haloperidol [From Haldol] AdvReac NAUSEA Verified 10/24/17 18:48 Phenobarbital [PHENobarbital Tab] 64.8 mg PO DAILY 04/03/17 Phenobarbital [PHENobarbital Tab] 97.2 mg PO DAILY 04/03/17 Carbamazepine [Carbatrol] 200 mg PO DAILY 06/02/17 Lisinopril [Zestril] 10 mg PO DAILY 06/02/17 Melatonin [Melatin 3 mg-1 mg] 1 tab PO DAILY 06/02/17 Nicotine [Nicotine Patch] 1 each TD DAILY 06/02/17 lamoTRIgine [LaMICtal] 100 mg PO BID 06/02/17 Phenobarbital 60 mg PO BID #60 tab 09/26/17 carBAMazepine [TEGretol] 200 mg PO BID #60 tab 09/26/17 Lisinopril [Zestril] 10 mg PO DAILY #30 tab 10/24/17 Phenobarbital 97.2 mg PO DAILY #30 tab 10/24/17 carBAMazepine [TEGretol-XR] 200 mg PO TID #90 ter 10/24/17 Review of Systems - Neurological Neurological: Confusion, Tremor - Psychiatric Psychiatric: Abnormal Sleep Pattern, Anxiety, Confusion, Difficulty Concentrating, Irritability, Mood Swings. absent: Homicidal Ideation, Suicidal Ideation Mental Status Examination - Personal Presentation Personal Presentation: Looks older than stated age (unkempt, obese) - Affect Affect: Other (labile) - Motor Activity Motor Activity: Psychomotor Agitation - Reliability in Providing Information Reliability in Providing Information: Poor, due to alteration in thoughts, Poor , due to altered mood - Speech Speech: Disorganized - Mood Mood: Anxious, Other (labile) - Formal Thought Process Formal Thought Process: Paranoia, Loosening of associations, Circumstantial, Perservation - Cognitive Functions Orientation: Person, Place, Time Sensorium: Alert Attention/Concentration: Easily distracted Abstract Thinking: Kevil Estimate of Intelligence: Below average Judgement: Imparied, as evidence by: Poor judgement (minimizes liver and psych issues) Memory: Recent impaired, as evidence by: Inability to recall events of the day, Remote impaired as evidenced by: Inability to recall sig life events - Risk Risk: Withdrawal, Diminished functioning - Strength & Assets Inventory Strength & Assets Inventory: Life experience - Limitations Limitations: Living alone DSM 5 DX - DSM 5 DSM 5 Diagnosis: Bipolar 1 d/o - severe, manic (r/o mixed) Opioid withdrawal Opioid use d/o - severe Alcohol use d/o -severe - Recommended/Plan of Treatment Treatment Recommendations and Plan of Treatment: Methadone detox As needed medications for alcohol Gabapentin for augmentation Mood stabilizers but low dose de to hepatic impairment Hall Manager called his pharmacy and confirmed his seizure meds, both were filled 2 weeks ago: tegretol and phenobarb. There were no psych meds GI and neuro and then medicine consulted bc of extremely high LFTs and seizure d /o All risks, benefits and alternatives of medications, including no medications, discussed and the patient understood and agreed. Attend groups and activities Supportive therapy and psychoeducation MT for abstinence CBT for relapse prevention Encourage MAT Refer to rehab or IOP Attend self-help groups as well 34 min Projected ELOS: 7 days
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
[2017-11-09] MEDS ORDERED: Sodium Chloride 0.9% 1,000 ML IV SCH (14:45)
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
[2017-11-09 16:51] LABS: PROTHROMBIN TIME 10.9 SECONDS (9.7-12.2)
[2017-11-09 16:57] LABS: AMYLASE 145 U/L (30-110); GAMMA GLUTAMYL TRANSPEPTIDASE 128 U/L (8-78); LIPASE 45 U/L (23-300)
--- NOTE | 2017-11-09 21:02 | CT ---
EXAM: CT Head Without Intravenous Contrast CLINICAL HISTORY: 41 years old, male; Pain; Headache and other: Fall; Patient HX: 09-14-17 images sent; Additional info: S/P fall TECHNIQUE: Axial computed tomography images of the head/brain without intravenous contrast. All CT scans at this facility use one or more dose reduction techniques, viz.: automated exposure control; ma/kV adjustment per patient size (including targeted exams where dose is matched to indication; i.e. head); or iterative reconstruction technique. Coronal and sagittal reformatted images were created and reviewed. COMPARISON: CT - HEAD W/O CONTRAST 2017-01-11 13:49 FINDINGS: Brain: Mild atrophy. No intracranial hemorrhage. No mass. Mild encephalomalacia within left occipital parietal region. Minimal encephalomalacia within left cerebellar hemisphere. No edema. Ventricles: No hydrocephalus. Cavum septum pellucidum and vergae. Bones/joints: No acute fracture. Soft tissues: Mild scalp swelling. Sinuses: Scattered minimal to mild mucosal thickening. Mastoid air cells: No mastoid effusion. Orbits: Unremarkable as visualized. IMPRESSION: 1. No intracranial hemorrhage. 2. Incidental/non-acute findings are described above.
[2017-11-10] MEDS: Sodium Chloride 0.9% 1,000 ML IV SCH ×3 (05:22→15:19)
[2017-11-10 08:40] LABS: BASO # 0.1 K/uL (0.0-0.2); EOS # 0.7 K/uL (0.0-0.7); EOS % 9.4 % (0.0-4.0); HEMOGLOBIN 13.4 g/dL (12.0-18.0); LYMPH # 1.4 K/uL (1.0-4.3); LYMPH % 20.5 % (20.0-40.0); MEAN CELL VOLUME 86.9 fL (80.0-94.0); MEAN CORPUSCULAR HEMOGLOBIN 29.2 pg (27.0-31.0); MEAN CORPUSCULAR HGB CONC 33.6 g/dL (33.0-37.0); MEAN PLATELET VOLUME 9.4 fL (7.2-11.7); MONO # 0.8 K/uL (0.0-0.8); MONO % 11.7 % (0.0-10.0); NEUT % 57.4 % (50.0-75.0); RBC 4.59 Mil/uL (4.40-5.90); RED CELL DISTRIBUTION WIDTH 14.7 % (11.5-14.5)
--- NOTE | 2017-11-10 08:47 | RAD ---
HISTORY: abdominal pain, distension COMPARISON: 03/29/2017 FINDINGS: BOWEL: Moderate retained feces. No evidence of bowel obstruction. No masses or abnormal intra-abdominal calcifications. No hepatic or splenic enlargement. There is no free intraperitoneal air appreciated. BONES: Severe osteoarthritis of the right hip. OTHER FINDINGS: None. IMPRESSION: Moderate retained feces. No bowel obstruction.
[2017-11-10 08:55] LABS: ALB/GLOB RATIO 1.1 (1.0-2.1); ALBUMIN 3.7 g/dL (3.5-5.0); ALT/SGPT 284 U/L (21-72); AST/SGOT 141 U/L (17-59); BLOOD UREA NITROGEN 10 mg/dL (9-20); CALCIUM 8.4 mg/dl (8.6-10.4); GFR AFRICAN-AMERICAN > 60; GFR NON-AFRICAN AMERICAN > 60
--- NOTE | 2017-11-10 09:33 | US ---
HISTORY: transaminitis COMPARISON: None. TECHNIQUE: Sonographic evaluation of the abdomen. FINDINGS: LIVER: Measures 19.7 cm. Normal echogenicity of the liver parenchyma. No mass. No intrahepatic bile duct dilatation. GALLBLADDER: Unremarkable. No gallstones. COMMON BILE DUCT: Measures 5 mm. No stones. No dilatation. PANCREAS: Unremarkable as visualized. No mass. No ductal dilatation. RIGHT KIDNEY: Measures 11.9cm. Normal echogenicity. No calculus, mass, or hydronephrosis. LEFT KIDNEY: Measures 11.0cm. Normal echogenicity. No calculus or hydronephrosis. Upper pole simple cyst, 9 mm. SPLEEN: Normal in size and contour. No mass. AORTA: No aneurysmal dilatation. IVC: Unremarkable. OTHER FINDINGS: None. IMPRESSION: Mild hepatomegaly. 9 mm left upper pole renal cortical cyst. Otherwise unremarkable examination.
[2017-11-10] MEDS ORDERED: POLYETHYLENE GLYCOL 3350 17 GM/Dose PACKET PO SCH (10:15)
--- NOTE | 2017-11-10 10:45 | RAD ---
PROCEDURE: Radiographs of the pelvis and bilateral hips HISTORY: s/p fall COMPARISON: None. FINDINGS: BONES: Pelvis: Unremarkable. Right hip:Unremarkable. Left hip:Unremarkable. JOINTS: Right hip: Superior osteoarthritis. Productive bony change about the medial aspect of the acetabulum may reflect old healed fracture. No evidence of acute fracture. Left hip: Unremarkable. Sacroiliac Joints: Unremarkable. Pubic symphysis: Unremarkable. SOFT TISSUES: Normal. OTHER FINDINGS: Medullary dawn in right femur. Old healed right femoral diaphyseal fracture. IMPRESSION: No acute fracture. Osteoarthritis of right hip. Possible old healed right acetabular fracture.
--- NOTE | 2017-11-10 11:03 | PCM.PYCHPN ---
Psychiatric Progress Note - Psychiatric Progress Note Patient seen today, length of contact: 16 min Patient Chief Complaint: "I'm fine doctor, I need to go to a rehab" Problems Identified/Issues Discussed: He is seen, chart reviewed and case discussed less manicky today but still says he is "very depressed" No SI, HI or AVH/del elicited He is still disorganized and thought disordered but improving. He is aware of his medical and psych issues and wants help Oriented but inattentive. Medication Change: Yes Medical Record Reviewed: Yes Mental Status Examination - Cognitive Function Orientation: Person, Place, Situation, Time Memory: Impaired Attention: Poor Concentration: Poor Association: Loose Fund of Knowledge: Poor - Mood Mood: Anxious, Other (labile) - Affect Affect: Other (labile) - Speech Speech: Loud, Pressured - Formal Thought Process Formal Thought Process: Loosening of associations, Circumstantial, Perservation - Suicidal Ideation Suicidal Ideation: No - Homicidal Ideation Homicidal Ideation: No Goal/Treatment Plan - Goal/Treatment Plan Need for Continued Stay: Severe functional impairment, Other (medical) Progress Toward Problem(s) and Goals/Treatment Plan: Methadone detox As needed medications for alcohol Gabapentin for augmentation Mood stabilizers but low dose de to hepatic impairment All risks, benefits and alternatives of medications, including no medications, discussed and the patient understood and agreed. Supportive therapy and psychoeducation VT for abstinence Encourage MAT Refer to rehab or IOP Attend self-help groups as well
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
--- NOTE | 2017-11-10 13:09 | CP.PCM.PN ---
<Susan Roa - Last Filed: 11/10/17 13:11> Subjective - Date & Time of Evaluation Date of Evaluation: 11/10/17 Time of Evaluation: 12:30 - Subjective Subjective: PGY4 GI Follow-up Pt seen and examined bedside no complaints tolerating diet +BM ROS 10 point ROS conducted, neg other than above Objective - Vital Signs/Intake and Output Vital Signs (last 24 hours): Temp Pulse Resp BP Pulse Ox 98.6 F 38 L 20 118/81 96 11/10/17 00:04 11/10/17 01:00 11/10/17 00:04 11/10/17 00:04 11/10/17 00:04 - Medications Medications: Current Medications Aripiprazole (Abilify) 5 mg PO BID [facility] Last Admin: 11/10/17 09:44 Dose: 5 mg Carbamazepine (Tegretol) 200 mg PO TID [facility] Last Admin: 11/10/17 09:44 Dose: 200 mg Docusate Sodium (Colace) 100 mg PO BID [facility] Last Admin: 11/10/17 09:44 Dose: 100 mg Gabapentin (Neurontin) 400 mg PO TID [facility] Last Admin: 11/10/17 09:45 Dose: 400 mg Hydroxyzine HCl (Atarax) 25 mg PO Q6H PRN PRN Reason: Anxiety Last Admin: 11/09/17 22:18 Dose: 25 mg Sodium Chloride (Sodium Chloride 0.9%) 1,000 mls @ 150 mls/hr IV .Q6H40M [facility] Last Admin: 11/10/17 05:22 Dose: 150 mls/hr Methadone HCl (Methadone) 15 mg PO Q24H [facility] PRN Reason: Taper Stop: 11/14/17 08:59 Last Admin: 11/10/17 09:45 Dose: 15 mg Nicotine (Nicoderm Cq) 1 patch TD DAILY [facility] Last Admin: 11/10/17 09:44 Dose: 1 patch Phenobarbital (Phenobarbital Tab) 32.4 mg PO TID [facility] Last Admin: 11/10/17 09:45 Dose: 32.4 mg Polyethylene Glycol (Miralax) 17 gm PO DAILY [facility] Last Admin: 11/10/17 10:30 Dose: 17 gm Trazodone HCl (Desyrel) 50 mg PO HS PRN PRN Reason: Insomnia Last Admin: 11/10/17 04:02 Dose: 50 mg Ziprasidone (Geodon Inj) 20 mg IM Q12H [facility] Last Admin: 11/10/17 04:02 Dose: 20 mg - Labs Labs: 11/10/17 08:29 11/10/17 08:29 PT 10.9 SECONDS (9.7-12.2) 11/09/17 16:36 INR 1.0 11/09/17 16:36 - Constitutional Appears: Well, No Acute Distress - Head Exam Head Exam: ATRAUMATIC, NORMOCEPHALIC - Eye Exam Eye Exam: Normal appearance - ENT Exam ENT Exam: Mucous Membranes Moist, Normal Exam - Neck Exam Neck Exam: Normal Inspection - Respiratory Exam Respiratory Exam: Clear to Ausculation Bilateral, NORMAL BREATHING PATTERN. absent: Rales, Rhonchi, Wheezes, Respiratory Distress - Cardiovascular Exam Cardiovascular Exam: REGULAR RHYTHM, +S1, +S2 - GI/Abdominal Exam GI & Abdominal Exam: Soft, Normal Bowel Sounds. absent: Firm, Guarding, Rigid, Tenderness, Organomegaly - Extremities Exam Extremities Exam: absent: Joint Swelling, Pedal Edema - Neurological Exam Neurological Exam: Alert, Awake, Oriented x3 - Psychiatric Exam Psychiatric exam: Normal Affect, Normal Mood - Skin Skin Exam: Dry, Intact, Normal Color, Warm Assessment and Plan - Assessment and Plan (Free Text) Assessment: Giorgi Jacobo is a 41M w/ hx of HTN, Depression, Schizophrenia, Seizure Disorder , Bipolar disorder I, Hepatitis C, polysubstance abuse, Hx of Traumatic Brain Injury, h/o self mutilating behavior who presented to the ER after intentional overdose? Acute rhabdomyolysis 2/2 fall polysubstance abuse hx of Hep C Plan: -continue IV fluids at 15oml/hr for an additional day -no other Gi interventions planned -avoid hepatotoxic drugs -advised cessation of illicit substances -rest of care as per primary team. will sign off D/W Dr. Manley <Ben Manley - Last Filed: 11/10/17 15:34> Objective - Vital Signs/Intake and Output Vital Signs (last 24 hours): Temp Pulse Resp BP Pulse Ox 98.6 F 38 L 20 118/81 96 11/10/17 00:04 11/10/17 01:00 11/10/17 00:04 11/10/17 00:04 11/10/17 00:04 - Medications Medications: Current Medications Aripiprazole (Abilify) 5 mg PO BID [facility] Last Admin: 11/10/17 09:44 Dose: 5 mg Carbamazepine (Tegretol) 200 mg PO TID [facility] Last Admin: 11/10/17 15:19 Dose: 200 mg Clonidine HCl (Catapres) 0.1 mg PO Q6 PRN PRN Reason: Other Last Admin: 11/10/17 15:19 Dose: 0.1 mg Docusate Sodium (Colace) 100 mg PO BID [facility] Last Admin: 11/10/17 09:44 Dose: 100 mg Gabapentin (Neurontin) 400 mg PO TID [facility] Last Admin: 11/10/17 15:19 Dose: 400 mg Hydroxyzine HCl (Atarax) 25 mg PO Q6H PRN PRN Reason: Anxiety Last Admin: 11/09/17 22:18 Dose: 25 mg Sodium Chloride (Sodium Chloride 0.9%) 1,000 mls @ 150 mls/hr IV .Q6H40M [facility] Last Admin: 11/10/17 15:19 Dose: 150 mls/hr Methadone HCl (Methadone) 15 mg PO Q24H [facility] PRN Reason: Taper Stop: 11/14/17 08:59 Last Admin: 11/10/17 09:45 Dose: 15 mg Nicotine (Nicoderm Cq) 1 patch TD DAILY [facility] Last Admin: 11/10/17 09:44 Dose: 1 patch Phenobarbital (Phenobarbital Tab) 32.4 mg PO TID [facility] Last Admin: 11/10/17 15:19 Dose: 32.4 mg Polyethylene Glycol (Miralax) 17 gm PO DAILY [facility] Last Admin: 11/10/17 10:30 Dose: 17 gm Trazodone HCl (Desyrel) 50 mg PO HS PRN PRN Reason: Insomnia Last Admin: 11/10/17 04:02 Dose: 50 mg Ziprasidone (Geodon Inj) 20 mg IM Q12H [facility] Last Admin: 11/10/17 04:02 Dose: 20 mg - Labs Labs: 11/10/17 08:29 11/10/17 08:29 PT 10.9 SECONDS (9.7-12.2) 11/09/17 16:36 INR 1.0 11/09/17 16:36 Attending/Attestation - Attestation I have personally seen and examined this patient.: Yes I have fully participated in the care of the patient.: Yes I have reviewed all pertinent clinical information, including history, physical exam and plan: Yes Notes (Text): 11/10/17 15:32 Patient seen with GI fellow. This is a 41 yr old M with history of HTN, Depression, Schizophrenia, Seizure Disorder, Bipolar disorder I, Hepatitis C, polysubstance abuse, Hx of Traumatic Brain Injury, h/o self mutilating behavior who presented to the ER after intentional overdose of alcohol and heroin. He was found by family members on the floor. Patient does not remember and woke up in the hospital. He is hemodynamically stable. Transminases is likely multi factorial- due to alcohol, rhabdomyolysis. LFT downtrending on agressive hydration. Avoid hepatotoxic medications. Regular diet. Can be transferred back to psych tomorrow. Will sign off now
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
[2017-11-10 18:35] VITALS: RESP 18
[2017-11-10 18:39] VITALS: BP 130/87; TEMP 98.2; O2SAT 99
[2017-11-10 20:02] VITALS: PULSE 85
[2017-11-11] MEDS: Sodium Chloride 0.9% 1,000 ML IV SCH (03:20)
--- NOTE | 2017-11-11 06:58 | CP.PCM.PN ---
Subjective - Date & Time of Evaluation Date of Evaluation: 11/11/17 Time of Evaluation: 06:55 - Subjective Subjective: Mr. Jacobo was seen and examined at the bedside. He is awake, alert and demanding to sign out due to inability to access heroin. He claims of being a polydrug abuse for years and he knows when he is having a seizure. He is on 1:1 sitter for patient safety. Staff called the house doctor for AMA. He had an violent episode last night that the staff gave him ativan . Objective - Vital Signs/Intake and Output Vital Signs (last 24 hours): Temp Pulse Resp BP Pulse Ox 98.2 F 85 18 130/87 99 11/10/17 15:20 11/10/17 16:00 11/10/17 15:20 11/10/17 15:20 11/10/17 15:20 Intake and Output: 11/10/17 11/11/17 18:59 06:59 Intake Total 1770 Balance 1770 - Medications Medications: Current Medications Aripiprazole (Abilify) 10 mg PO BID [facility] Carbamazepine (Tegretol) 200 mg PO TID [facility] Last Admin: 11/10/17 18:26 Dose: 200 mg Clonidine HCl (Catapres) 0.1 mg PO Q6 PRN PRN Reason: Other Last Admin: 11/10/17 15:19 Dose: 0.1 mg Docusate Sodium (Colace) 100 mg PO BID [facility] Last Admin: 11/10/17 18:26 Dose: 100 mg Gabapentin (Neurontin) 400 mg PO TID [facility] Last Admin: 11/10/17 18:26 Dose: 400 mg Hydroxyzine HCl (Atarax) 25 mg PO Q6H PRN PRN Reason: Anxiety Last Admin: 11/10/17 21:21 Dose: 25 mg Sodium Chloride (Sodium Chloride 0.9%) 1,000 mls @ 150 mls/hr IV .Q6H40M [facility] Last Admin: 11/11/17 03:20 Dose: Not Given Methadone HCl (Methadone) 15 mg PO Q24H [facility] PRN Reason: Taper Stop: 11/14/17 08:59 Last Admin: 11/10/17 09:45 Dose: 15 mg Nicotine (Nicoderm Cq) 1 patch TD DAILY [facility] Last Admin: 11/10/17 09:44 Dose: 1 patch Phenobarbital (Phenobarbital Tab) 32.4 mg PO TID [facility] Last Admin: 11/10/17 18:26 Dose: 32.4 mg Polyethylene Glycol (Miralax) 17 gm PO DAILY [facility] Last Admin: 11/10/17 10:30 Dose: 17 gm Trazodone HCl (Desyrel) 50 mg PO HS PRN PRN Reason: Insomnia Last Admin: 11/10/17 23:50 Dose: 50 mg Ziprasidone (Geodon Inj) 20 mg IM Q12H [facility] Last Admin: 11/11/17 04:02 Dose: 20 mg - Labs Labs: 11/10/17 08:29 11/10/17 08:29 PT 10.9 SECONDS (9.7-12.2) 11/09/17 16:36 INR 1.0 11/09/17 16:36 - Constitutional Appears: No Acute Distress - Head Exam Head Exam: NORMAL INSPECTION - Neurological Exam Neurological Exam: Alert, Awake Neuro motor strength exam: Left Upper Extremity: 5, Right Upper Extremity: 5, Left Lower Extremity: 5, Right Lower Extremity: 5 Additional comments: he is alert, oriented to person and place. He ambulates with steady gait. Assessment and Plan (1) Epilepsy Assessment & Plan: Case discussed with DR. Garrido, continue all current medical regimen. Pending phenobarbital level. Follow up EEG and recommend to follow up with an outpatient neurologist to adjust his seizure medications if he is signing AMA. Status: Acute
--- NOTE | 2017-11-11 07:42 | CP.PCM.PN ---
Subjective - Date & Time of Evaluation Date of Evaluation: 11/11/17 Time of Evaluation: 07:20 - Subjective Subjective: House resident was paged to [id number] for patient requesting to sign out against medical advise. Patient would like go to another hospital. Patient is awake, alert oriented to time, person, and place. Patient denies having suicidal or homicidal ideation. Discussed with psychiatric attending Dr. Alvarez, who agreed that patient has the capacity to sign AMA himself. Risks and dangers associated with leaving the hospital against medical advise were extensively discussed with the patient. Patient understood and insisted on leaving. Patient signed the AMA form with RN witness present. Objective - Vital Signs/Intake and Output Vital Signs (last 24 hours): Temp Pulse Resp BP Pulse Ox 98.2 F 85 18 130/87 99 11/10/17 15:20 11/10/17 16:00 11/10/17 15:20 11/10/17 15:20 11/10/17 15:20 - Medications Medications: Current Medications Aripiprazole (Abilify) 10 mg PO BID [facility] Carbamazepine (Tegretol) 200 mg PO TID [facility] Last Admin: 11/10/17 18:26 Dose: 200 mg Clonidine HCl (Catapres) 0.1 mg PO Q6 PRN PRN Reason: Other Last Admin: 11/10/17 15:19 Dose: 0.1 mg Docusate Sodium (Colace) 100 mg PO BID [facility] Last Admin: 11/10/17 18:26 Dose: 100 mg Gabapentin (Neurontin) 400 mg PO TID [facility] Last Admin: 11/10/17 18:26 Dose: 400 mg Hydroxyzine HCl (Atarax) 25 mg PO Q6H PRN PRN Reason: Anxiety Last Admin: 11/10/17 21:21 Dose: 25 mg Sodium Chloride (Sodium Chloride 0.9%) 1,000 mls @ 150 mls/hr IV .Q6H40M [facility] Last Admin: 11/11/17 03:20 Dose: Not Given Methadone HCl (Methadone) 15 mg PO Q24H [facility] PRN Reason: Taper Stop: 11/14/17 08:59 Last Admin: 11/10/17 09:45 Dose: 15 mg Nicotine (Nicoderm Cq) 1 patch TD DAILY [facility] Last Admin: 11/10/17 09:44 Dose: 1 patch Phenobarbital (Phenobarbital Tab) 32.4 mg PO TID [facility] Last Admin: 11/10/17 18:26 Dose: 32.4 mg Polyethylene Glycol (Miralax) 17 gm PO DAILY [facility] Last Admin: 11/10/17 10:30 Dose: 17 gm Trazodone HCl (Desyrel) 50 mg PO HS PRN PRN Reason: Insomnia Last Admin: 11/10/17 23:50 Dose: 50 mg Ziprasidone (Geodon Inj) 20 mg IM Q12H [facility] Last Admin: 11/11/17 04:02 Dose: 20 mg - Labs Labs: 11/10/17 08:29 11/10/17 08:29 PT 10.9 SECONDS (9.7-12.2) 11/09/17 16:36 INR 1.0 11/09/17 16:36
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
[2017-11-11 12:00] LABS: HEPATITIS B SURFACE AG Negative (NEGATIVE)
[2017-11-11 12:07] LABS: HEPATITIS A IGM NEGATIVE (NEGATIVE); HEPATITIS B CORE AB NEGATIVE (NEGATIVE)
[2017-11-12 11:14] LABS: HEPATITIS C ANTIBODY REACTIVE (NEGATIVE)
--- NOTE | 2017-11-12 19:18 | CARD ---
APPROVED REPORT EKG Measurement Heart [id number] ID [id number] <Conclusion> Normal sinus rhythm T wave abnormality, consider anterior ischemia Abnormal ECG
--- NOTE | 2017-11-13 21:42 | CARD ---
APPROVED REPORT EKG Measurement Heart [id number] CO [id number] <Conclusion> Normal sinus rhythm Nonspecific T wave abnormality Abnormal ECG
== END 2017-11-11 07:40 | disposition left against medical advice (07) | DRG 713 ==
LOC: C.ER 14:25 → C.9E 17:14 → C.5E 17:40 → C.5S 11-09 16:19 → C.5E 11-09 16:31 → C.5S 11-09 16:51 → C.5E 11-09 17:21 → C.5S 11-09 18:09
PROVIDERS: ADMIT Psychiatry & Neurology Psychiatry; ATTEND Hospitalist
PROC: HZ2ZZZZ Detoxification Services for Substance Abuse Treatment (ICD-10-PCS; principal; 2017-11-08)
PROC: HZ52ZZZ Individual Psychotherapy for Substance Abuse Treatment, Cognitive-Behavioral (ICD-10-PCS; 2017-11-08)
PROC: HZ59ZZZ Individual Psychotherapy for Substance Abuse Treatment, Supportive (ICD-10-PCS; 2017-11-08)
PROC: HZ56ZZZ Individual Psychotherapy for Substance Abuse Treatment, Psychoeducation (ICD-10-PCS; 2017-11-08)
PROC: HZ42ZZZ Group Counseling for Substance Abuse Treatment, Cognitive-Behavioral (ICD-10-PCS; 2017-11-08)
PROC: HZ46ZZZ Group Counseling for Substance Abuse Treatment, Psychoeducation (ICD-10-PCS; 2017-11-08)
DX: F11.23 Opioid dependence with withdrawal (principal); G40.909 Epilepsy, unspecified, not intractable, without status epilepticus; Z21 Asymptomatic human immunodeficiency virus [HIV] infection status; R45.851 Suicidal ideations; M62.82 Rhabdomyolysis; F25.9 Schizoaffective disorder, unspecified; F31.13 Bipolar disorder, current episode manic without psychotic features, severe; B19.20 Unspecified viral hepatitis C without hepatic coma; F60.9 Personality disorder, unspecified; K59.09 Other constipation; I10 Essential (primary) hypertension; Y90.0 Blood alcohol level of less than 20 mg/100 ml; F10.20 Alcohol dependence, uncomplicated

== ENCOUNTER 2017-11-19 17:11 | Inpatient (IN) | payer MEDICAID ==
[2017-11-19 17:12] VITALS: BMI 18.6
[2017-11-19 18:07] LABS: BASO # 0.1 K/uL (0.0-0.2); BASO % 0.7 % (0.0-2.0); EOS # 0.4 K/uL (0.0-0.7); EOS % 6.4 % (0.0-4.0); HEMOGLOBIN 11.9 g/dL (12.0-18.0); LYMPH # 2.6 K/uL (1.0-4.3); LYMPH % 38.3 % (20.0-40.0); MEAN CELL VOLUME 87.6 fL (80.0-94.0); MEAN CORPUSCULAR HEMOGLOBIN 29.4 pg (27.0-31.0); MEAN CORPUSCULAR HGB CONC 33.5 g/dL (33.0-37.0); MEAN PLATELET VOLUME 8.8 fL (7.2-11.7); MONO # 0.5 K/uL (0.0-0.8); MONO % 7.7 % (0.0-10.0); NEUT # 3.2 K/uL (1.8-7.0); NEUT % 46.9 % (50.0-75.0); NRBC % 0.1 % (0.0-2.0); RBC 4.04 Mil/uL (4.40-5.90); RED CELL DISTRIBUTION WIDTH 14.5 % (11.5-14.5); WHITE BLOOD COUNT 6.9 K/uL (4.8-10.8)
[2017-11-19 18:25] LABS: BENZODIAZEPINES, UR NEGATIVE (NEGATIVE); PHENCYCLIDINE, UR NEGATIVE (NEGATIVE)
[2017-11-19 18:26] LABS: URINE BILIRUBIN NEGATIVE (NEGATIVE); URINE BLOOD NEGATIVE (NEGATIVE); URINE CLARITY Clear (Clear); URINE COLOR Yellow (YELLOW); URINE GLUCOSE (UA) NORMAL (Normal); URINE LEUKOCYTE ESTERASE NEG Leu/uL (Negative); URINE PROTEIN NEGATIVE (NEGATIVE); URINE UROBILINOGEN NORMAL mg/dL (0.2-1.0)
[2017-11-19 18:30] LABS: ALB/GLOB RATIO 1.2 (1.0-2.1); ALBUMIN 4.2 g/dL (3.5-5.0); ALT/SGPT 58 U/L (21-72); AST/SGOT 35 U/L (17-59); BARBITURATES, UR POSITIVE (NEGATIVE); BLOOD UREA NITROGEN 10 mg/dL (9-20); CALCIUM 8.9 mg/dl (8.6-10.4); GFR AFRICAN-AMERICAN > 60; GFR NON-AFRICAN AMERICAN > 60; OPIATES, UR POSITIVE (NEGATIVE)
--- NOTE | 2017-11-19 19:34 | C.PDOC ---
History Of Present Illness 42 year old male presents to the ED for psychiatric evaluation. Patient states he has been depressed and has been cutting his legs. Patient denies homicidal ideation and has no other complaints at this time. Time Seen by Provider: 11/19/17 17:20 Chief Complaint (Nursing): Psychiatric Evaluation History Per: Patient History/Exam Limitations: no limitations Onset/Duration Of Symptoms: Hrs Current Symptoms Are (Timing): Still Present Suicide/Self Injury Attempted (Context): Other (cut legs ) Modifying Factor(s): None Associated Symptoms: Suicidal Thoughts Involuntary Hold By: None Recent travel outside of the [place]: No Additional History Per: Patient Past Medical History Reviewed: Historical Data, Nursing Documentation, Vital Signs Vital Signs: Last Vital Signs Temp 98 F 11/19/17 18:49 Pulse 67 11/19/17 18:49 Resp 18 11/19/17 18:49 BP 148/93 H 11/19/17 18:49 Pulse Ox 100 11/19/17 23:23 - Medical History PMH: Anxiety, Bipolar Disorder, Depression, HTN, Personality Disorder, Pneumonia , Schizophrenia, Seizures Denies: Diabetes, Hepatitis, HIV, Chronic Kidney Disease, Sexually Transmitted Disease Surgical History: No Surg Hx - [facility] Procedures ALCOHOL DETOXIFICATION (10/23/14) CENTRAL VENOUS CATHETER PLACEMENT WITH GUIDANCE (08/27/14) CLOSURE SKIN & SUBCUTANEOUS NEC (01/02/14) DETOXIFICATION SERVICES FOR SUBSTANCE ABUSE TREATMENT (11/08/17) DPT ADMINISTRATION (08/11/14) GROUP SENIOR TELECOMMUNICATIONS TECHNICIAN FOR SUBSTANCE ABUSE TREATMENT, PSYCHOEDUCATION (11/08/17) GROUP SENIOR TELECOMMUNICATIONS TECHNICIAN FOR SUBSTANCE ABUSE, COGNITIVE BEHAVIORAL (11/08/17) GROUP PSYCHOTHERAPY (08/07/17) INDIV PSYCHOTHERAPY FOR SUBSTANCE ABUSE TREATMENT, SUPPORT (11/08/17) INDIV PSYCHOTHERAPY FOR SUBSTANCE ABUSE, COGNITIV BEHAVIORAL (11/08/17) INDIV PSYCHOTHERAPY FOR SUBSTANCE ABUSE, PSYCHOEDUCATION (11/08/17) INDIVID PSYCHOTHERAP NEC (12/17/14) INDIVIDUAL PSYCHOTHERAPY, COGNITIVE-BEHAVIORAL (06/03/17) INDIVIDUAL PSYCHOTHERAPY, SUPPORTIVE (08/07/17) INJECT/INFUSE NEC (05/27/13) MEDICATION MANAGEMENT (08/07/17) MEDS MGMT FOR SUBSTANCE ABUSE TREATMENT, OTH REPL MED (08/07/17) OTHER GROUP THERAPY (04/04/14) PSYCHIAT DRUG THERAP NEC (12/17/14) VENOUS PUNCTURE NEC (05/27/13) Family History: States: Unknown Family Hx - Social History Hx Tobacco Use: Yes Hx Alcohol Use: Yes Hx Substance Use: Yes - Immunization History Hx Tetanus Toxoid Vaccination: No Hx Influenza Vaccination: Yes Hx Pneumococcal Vaccination: No Review Of Systems Psych: Positive for: Suicidal ideation Physical Exam - Physical Exam Appears: Non-toxic, No Acute Distress Skin: Normal Color, Warm, Dry, Other (superficial lacerations to bilateral lower extremities. no active bleeding ) Head: Atraumatic, Normacephalic Eye(s): bilateral: Normal Inspection Oral Mucosa: Moist Neck: Supple Chest: Symmetrical, No Deformity, No Tenderness Cardiovascular: Rhythm Regular, No Murmur Respiratory: Normal Breath Sounds, No Rales, No Rhonchi, No Wheezing Extremity: Normal ROM, Capillary Refill (less than 2 seconds ) Neurological/Psych: Oriented x3, Normal Speech, Normal Cognition ED Course And Treatment - Laboratory Results Result Diagrams: 11/19/17 18:02 11/19/17 18:02 O2 Sat by Pulse Oximetry: 100 (on RA) Pulse Ox Interpretation: Normal Medical Decision Making Medical Decision Making: Progress: Bloodwork and UA ordered and reviewed. medically clear accepted to crisis. Disposition - Disposition Disposition: HOSPITALIZED Disposition Time: 00:36 Condition: STABLE - Clinical Impression Clinical Impression: Depression - Scribe Statement The provider has reviewed the documentation as recorded by the Scribe (Marcella Roa) Provider Attestation: All medical record entries made by the Scribe were at my direction and personally dictated by me. I have reviewed the chart and agree that the record accurately reflects my personal performance of the history, physical exam, medical decision making, and the department course for this patient. I have also personally directed, reviewed, and agree with the discharge instructions and disposition. Decision To Admit - Pt Status Changed To: Hospital Disposition Of: Inpatient - Admit Certification Admit to Inpatient:: After my assessment, the patient will require hospitalization for at least two midnights. This is because of the severity of symptoms shown, intensity of services needed, and/or the medical risk in this patient being treated as an outpatient. - InPatient: Physician Admission Certification: I certify that this patient requires 2 or more midnights of care for the following reason:: si needs pysch - . Bed Request Type: Psychiatry Admitting Physician: Mandi Bay Patient Diagnosis: Depression
[2017-11-19 22:06] LABS: ACETAMINOPHEN < 10.0 ug/mL (10.0-30.0); SALICYLATE < 1.0 mg/dL 1
--- NOTE | 2017-11-20 01:45 | PCM.BM ---
<Brando Graham - Last Filed: 11/20/17 01:42> Treatment Plan Problems - Problems identified on initial assessmt Depression Date Initiated: 11/20/17 Time Initiated: 01:20 Assessment reference: NA Status: Active Suicidal Ideation Date Initiated: 11/20/17 Time Initiated: 01:20 Assessment reference: NA Status: Active Substance Abuse Date Initiated: 11/20/17 Time Initiated: 01:20 Assessment reference: NA Status: Active Treatment assets and liabiliti Patient Assests: adapts well, cooperative, self-reliant, ADL independent, good support system, negotiates basic needs, cognitively intact, other Patient Liabilities: financial problems, substance abuse - Milieu Protocol Maintain good personal hygiene: daily Encourage regular showers, daily Remind patient to perform daily oral care, daily Assist patient to perform ADL's Maintain personal safety: every shift Educate patient to report safety concerns to staff, every shift Monitor environment for contraband/sharps Medication safety: Monitor for expected outcome, potential side effects: every shift, Assess barriers to learning: every shift, Assess readiness for medication education: every shift <Shy Ruano - Last Filed: 11/20/17 10:59> Family Contact Family involvement: Family/SO is involved Family contact name: Cousin Family contacted how many times per week?: 1 - Goals for Treatment Patient goals for treatment: "I need help with my seizures." Discharge/Continuing Care - Education Needs Education Needs: Patient Medication, Patient Coping Skills, Patient Placement options, Patient Community resources - Discharge Discharge Criteria: Tolerates medication w/o severe side effects, No longer exhibiting s/s of withdrawal, Reduction of target symptoms Discharge to:: Substance Abuse Rehab - Treatment Team Participation Discussed with Family/SO: No Was Patient/Family/SO present at Treatment Team Meeting: Yes <Gómez Reno - Last Filed: 11/20/17 11:01> - Diagnosis (1) Schizoaffective disorder Status: Acute Interventions: 11/20/17 11:01 * Assess/adjust medications daily and /or as needed * See patient on an individual basis 7x/week to assess status of hallucinations * Discuss risks, benefits, side effects and alternatives of medications * (2) Opiate dependence Status: Acute Interventions: 11/20/17 11:01 * Assess 7x/week regarding severity of withdrawal * Educate regarding risks, benefits, side effects and alternatives of medications * Use Motivational Interviewing for abstinence * Use CBT for relapse prevention * Medication management for withdrawal symptoms * Encourage medication assisted treatment *
[2017-11-20 06:35] VITALS: RESP 20; O2SAT 99
--- NOTE | 2017-11-20 10:09 | PCM.PSYCH ---
Initial Psychiatric Evaluation - Initial Psychiatric Evaluation Type of Admission: Voluntary Legal Status: Capacity History of Present Illness and Precipitating Events: Pt is a 42 year old male presenting to [facility] with complaints of depression and suicidal thoughts. Pt is unable to state how long he has been feeling suicidal, but states he "passed out" earlier, and since then has been feeling "more and more depressed and suicidal." Pt denies having a specific plan , but repeatedly pointed to fresh cuts on inside of his left and right calves. Pt has a history of impulsive behavior, and cannot contract for safety at this time. Pt denies H/I. Pt reports history of auditory and visual hallucinations, but unable to recall the last episode. Pt states that "what I see isn't the problem, it's what I hear.. 'Giorgi just give up.'" Pt states to help manage the auditory hallucinations, he cuts himself. Pt has dozens of scars on both arms and legs from a long history of cutting. Pt has a long history of mental illness, stating that he has been diagnosed with bipolar disorder in the past. Pt has a history of over 15 hospitalizations within [facility] and [facility]. Pt is not compliant with outpatient treatment, but states that he would like to be connected to a provider. Pt states that he is also abusing heroin, last use earlier today when he used 5 bags intranasally, which is his average daily use. Medically, pt reports a history of epileptic seizures, HTN, and TBI and prescribed Lisinopril, Carbamazepine, Phenobarbitol, Tegretol, and Cymbalta. Pt is unable to recall specific doses of his medication exccept the Cymbalta 30mg, which he states is not helping him. Pt is AAOx3. Pt is able to advocate for himself, and pleasant throughout exchange. Pt preoccupied and tangential with depressive symptoms, suicidal thoughts, and his cousin "getting the papers from [employer]." Pt presents as unkempt but is not malodorous. Pt speech is pressured. Pt mood presents as depressed and anxious with constricted affect. Pt has been made aware of what to expect in the ER and instructed to request undersigned with questions/concerns. [ End ] Current Medications: Active Medications Generic Name Dose Route Start Last Admin Trade Name Freq PRN Reason Stop Dose Admin Aripiprazole 5 mg 11/20/17 10:00 11/20/17 09:55 Abilify PO 5 mg DAILY YANNA Administration Carbamazepine 200 mg 11/20/17 10:00 11/20/17 09:55 Tegretol PO 200 mg BID YANNA Administration Clonidine HCl 0.1 mg 11/20/17 00:30 11/20/17 01:38 Catapres PO 0.1 mg Q8 PRN Administration COWS Score More or Equal to 5 Gabapentin 300 mg 11/20/17 10:00 11/20/17 09:55 Neurontin PO 300 mg TID YANNA Administration Hydroxyzine HCl 25 mg 11/20/17 00:26 Atarax PO Q6H PRN Anxiety Ibuprofen 600 mg 11/20/17 00:30 Motrin Tab PO Q6H PRN Pain, moderate (4-7) Methadone HCl 0 mg 11/21/17 10:00 Methadone PO 11/24/17 09:59 DAILY YANNA Taper Ondansetron HCl 2 mg 11/20/17 00:23 Zofran Tab PO Q8H PRN Nausea/Vomiting Pneumococcal Polyvalent Vaccine 0.5 ml 11/22/17 10:00 Pneumovax 23 Vaccine IM 11/22/17 10:01 .ONCE ONE Past Psychiatric History - Past Psychiatric History Previous Treatment History: Inpatient History of ETOH/Drug Use: History of Heroin Use Disorder Pertinent Medical Hx (Current Medical&Sleep Prob, Allergies): Allergies Allergy/AdvReac Type Severity Reaction Status Date / Time lactose Allergy DIARRHEA Verified 10/24/17 18:48 fluphenazine [From Prolixin] AdvReac SWELLING Verified 10/24/17 18:48 haloperidol [From Haldol] AdvReac NAUSEA Verified 10/24/17 18:48 Phenobarbital [PHENobarbital Tab] 64.8 mg PO DAILY 04/03/17 Phenobarbital [PHENobarbital Tab] 97.2 mg PO DAILY 04/03/17 Carbamazepine [Carbatrol] 200 mg PO DAILY 06/02/17 Lisinopril [Zestril] 10 mg PO DAILY 06/02/17 Melatonin [Melatin 3 mg-1 mg] 1 tab PO DAILY 06/02/17 Nicotine [Nicotine Patch] 1 each TD DAILY 06/02/17 lamoTRIgine [LaMICtal] 100 mg PO BID 06/02/17 Phenobarbital 60 mg PO BID #60 tab 02/01/18 carBAMazepine [TEGretol] 200 mg PO BID #60 tab 09/26/17 Lisinopril [Zestril] 10 mg PO DAILY #30 tab 10/24/17 Phenobarbital 97.2 mg PO DAILY #30 tab 10/24/17 carBAMazepine [TEGretol-XR] 200 mg PO TID #90 ter 10/24/17 Review of Systems - Review of Systems All systems: reviewed and no additional remarkable complaints except - Psychiatric Psychiatric: Abnormal Sleep Pattern, Anxiety, Confusion, Depression, Hopelessness, Suicidal Ideation Mental Status Examination - Personal Presentation Personal Presentation: Looks older than stated age - Affect Affect: Constricted - Motor Activity Motor Activity: Psychomotor Agitation - Reliability in Providing Information Reliability in Providing Information: Poor, due to cognitve impairment - Speech Speech: Disorganized - Mood Mood: Depressed - Obsessions/Compulsions Obsessions: No Compulsions: No - Cognitive Functions Orientation: Person, Place - Risk Risk: Withdrawal - Strength & Assets Inventory Strength & Assets Inventory: Family support
--- NOTE | 2017-11-21 11:07 | PCM.PYCHPN ---
Mental Status Examination - Cognitive Function Orientation: Person, Place - Mood Mood: Depressed - Affect Affect: Constricted - Homicidal Ideation Homicidal Ideation: No
[2017-11-21] MEDS ORDERED: Divalproex 500 mg DR Tab PO SCH (11:15)
[2017-11-21 11:18] VITALS: BP 140/88; PULSE 86
[2017-11-21 12:24] VITALS: TEMP 98
--- NOTE | 2017-11-21 13:18 | PCM.PYCHDC ---
Mental Status Examination - Mental Status Examination Orientation: Person, Place, Situation, Time Discharge Summary - Discharge Note Laboratory Data: Abnormal Lab Results 11/19/17 21:47 Phenobarbital 18.4 Consultations:: List each consultation separately and include: 1. Reason for request. 2. Findings. 3. Follow-up Summary of Hospital Course include:: 1. Description of specific treatment plan utilized for patients during their course of treatmen. 2. Summarize the time- course for resolution of acute symptoms and/or regressed behaviors. 3. Describe issues identified and worked on during hospitalization. 4. Describe medication utilized. 5. Describe medical problems identified and treated. 6. Reassessment of suicide risk Summary of Hospital Course: Pt is a 42 year old male presenting to [facility] with complaints of depression and suicidal thoughts. Pt is unable to state how long he has been feeling suicidal, but states he "passed out" earlier, and since then has been feeling "more and more depressed and suicidal." Pt denies having a specific plan , but repeatedly pointed to fresh cuts on inside of his left and right calves. Pt has a history of impulsive behavior, and cannot contract for safety at this time. Pt denies H/I. Pt reports history of auditory and visual hallucinations, but unable to recall the last episode. Pt states that "what I see isn't the problem, it's what I hear.. 'Giorgi just give up.'" Pt states to help manage the auditory hallucinations, he cuts himself. Pt has dozens of scars on both arms and legs from a long history of cutting. Pt has a long history of mental illness, stating that he has been diagnosed with bipolar disorder in the past. Pt has a history of over 15 hospitalizations within [facility] and [facility]. Pt is not compliant with outpatient treatment, but states that he would like to be connected to a provider. Pt states that he is also abusing heroin, last use earlier today when he used 5 bags intranasally, which is his average daily use. Medically, pt reports a history of epileptic seizures, HTN, and TBI and prescribed Lisinopril, Carbamazepine, Phenobarbitol, Tegretol, and Cymbalta. Pt is unable to recall specific doses of his medication exccept the Cymbalta 30mg, which he states is not helping him. Pt is AAOx3. Pt is able to advocate for himself, and pleasant throughout exchange. Pt preoccupied and tangential with depressive symptoms, suicidal thoughts, and his cousin "getting the papers from [employer]." Pt presents as unkempt but is not malodorous. Pt speech is pressured. Pt mood presents as depressed and anxious with constricted affect. Pt has been made aware of what to expect in the ER and instructed to request undersigned with questions/concerns. [ End ] - Diagnosis (1) Schizoaffective disorder Current Visit: Yes Status: Acute (2) Opiate dependence Current Visit: No Status: Acute - Final Diagnosis (DSM 5) Condition upon Discharge: STABLE Disposition: HOME/ ROUTINE Prescriptions/Medication Reconciliation: carBAMazepine [Tegretol] 200 mg PO BID #30 tab Divalproex [Depakote DR] 500 mg PO BID #30 tcp QUEtiapine [SEROquel] 200 mg PO HS #15 tab
[2017-11-22] MEDS ORDERED: Pneumococcal 23-Valent Vaccine IM ONE (10:00)
[2017-11-22] MEDS ORDERED: Influenza Vaccine 60 mcg/0.5 mL SYR (4YR UP) IM ONE (10:00)
== END 2017-11-21 13:35 | disposition home or self-care (01) | DRG 430 ==
LOC: C.ER 17:11 → C.5E 11-20 00:01
PROVIDERS: ADMIT Psychiatry & Neurology Psychiatry; ATTEND Psychiatry & Neurology Psychiatry
DX: F25.9 Schizoaffective disorder, unspecified (principal); F11.20 Opioid dependence, uncomplicated; R45.851 Suicidal ideations; F31.9 Bipolar disorder, unspecified; Z91.5 Personal history of self-harm; I10 Essential (primary) hypertension; G40.909 Epilepsy, unspecified, not intractable, without status epilepticus; Z87.820 Personal history of traumatic brain injury; F60.9 Personality disorder, unspecified; F41.9 Anxiety disorder, unspecified; S81.812A Laceration without foreign body, left lower leg, initial encounter; S81.811A Laceration without foreign body, right lower leg, initial encounter; X78.9XXA Intentional self-harm by unspecified sharp object, initial encounter; Z91.011 Allergy to milk products; Z88.8 Allergy status to other drugs, medicaments and biological substances; Z79.899 Other long term (current) drug therapy

== ENCOUNTER 2017-12-07 01:26 | Emergency (ER) | payer MEDICAID ==
[2017-12-07 01:26] VITALS: BMI 18.6
[2017-12-07 01:38] VITALS: BP 111/68; PULSE 84; RESP 14; TEMP 97.5; O2SAT 96
--- NOTE | 2017-12-07 02:14 | C.PDOC ---
History Of Present Illness Patient presents to ED for complaints of stomach pain. Patient admits to drinking and heroin use today. Denies nausea, vomiting or diarrhea. Patient is requesting detox from heroin. Time Seen by Provider: 12/07/17 02:13 Chief Complaint (Nursing): Substance Abuse History Per: Patient History/Exam Limitations: no limitations Onset/Duration Of Symptoms: Hrs Current Symptoms Are (Timing): Still Present Suicide/Self Injury Attempted (Context): None Modifying Factor(s): Alcohol, Other (Heroin) Associated Symptoms: denies: Suicidal Thoughts, Suicidal Plan Involuntary Hold By: None Recent travel outside of the [place]: No Past Medical History Reviewed: Historical Data, Nursing Documentation, Vital Signs Vital Signs: Last Vital Signs Temp 97.5 F L 12/07/17 01:34 Pulse 84 12/07/17 01:34 Resp 14 12/07/17 01:34 BP 111/68 12/07/17 01:34 Pulse Ox 96 12/07/17 02:44 - Medical History PMH: Anxiety, Bipolar Disorder, Depression, HTN, Personality Disorder, Pneumonia , Schizophrenia, Seizures - [facility] Procedures ALCOHOL DETOXIFICATION (10/23/14) CENTRAL VENOUS CATHETER PLACEMENT WITH GUIDANCE (08/27/14) CLOSURE SKIN & SUBCUTANEOUS NEC (01/02/14) DETOXIFICATION SERVICES FOR SUBSTANCE ABUSE TREATMENT (11/08/17) DPT ADMINISTRATION (08/11/14) GROUP MECHANICAL ENGINEERING MANAGER FOR SUBSTANCE ABUSE TREATMENT, PSYCHOEDUCATION (11/08/17) GROUP MECHANICAL ENGINEERING MANAGER FOR SUBSTANCE ABUSE, COGNITIVE BEHAVIORAL (11/08/17) GROUP PSYCHOTHERAPY (08/07/17) INDIV PSYCHOTHERAPY FOR SUBSTANCE ABUSE TREATMENT, SUPPORT (11/08/17) INDIV PSYCHOTHERAPY FOR SUBSTANCE ABUSE, COGNITIV BEHAVIORAL (11/08/17) INDIV PSYCHOTHERAPY FOR SUBSTANCE ABUSE, PSYCHOEDUCATION (11/08/17) INDIVID PSYCHOTHERAP NEC (12/17/14) INDIVIDUAL PSYCHOTHERAPY, COGNITIVE-BEHAVIORAL (06/03/17) INDIVIDUAL PSYCHOTHERAPY, SUPPORTIVE (08/07/17) INJECT/INFUSE NEC (05/27/13) MEDICATION MANAGEMENT (08/07/17) MEDS MGMT FOR SUBSTANCE ABUSE TREATMENT, OTH REPL MED (08/07/17) OTHER GROUP THERAPY (04/04/14) PSYCHIAT DRUG THERAP NEC (12/17/14) VENOUS PUNCTURE NEC (05/27/13) Family History: States: Unknown Family Hx - Social History Hx Tobacco Use: Yes Hx Alcohol Use: No Hx Substance Use: Yes - Immunization History Hx Tetanus Toxoid Vaccination: No Hx Influenza Vaccination: Yes Hx Pneumococcal Vaccination: No Review Of Systems Constitutional: Negative for: Fever, Chills Cardiovascular: Negative for: Chest Pain Respiratory: Negative for: Shortness of Breath Gastrointestinal: Positive for: Other (stomach pain). Negative for: Nausea, Vomiting, Abdominal Pain, Diarrhea Skin: Negative for: Rash Neurological: Negative for: Weakness, Numbness Psych: Negative for: Suicidal ideation Physical Exam - Physical Exam Appears: Non-toxic, No Acute Distress Skin: Warm, Dry Head: Normacephalic Eye(s): bilateral: Normal Inspection Oral Mucosa: Moist Neck: Trachea Midline, Supple Chest: Symmetrical, No Tenderness Cardiovascular: Rhythm Regular Respiratory: No Decreased Breath Sounds, No Rales, No Rhonchi, No Wheezing Gastrointestinal/Abdominal: Soft, No Tenderness, No Distention, No Guarding, No Rebound Extremity: Normal ROM Extremity: Bilateral: Normal Color And Temperature, Normal ROM Neurological/Psych: Oriented x3 (Awake and alert), Normal Speech Gait: Steady ED Course And Treatment O2 Sat by Pulse Oximetry: 96 (RA) Pulse Ox Interpretation: Normal Progress Note: - No available detox beds. - Patient is sleeping comfortably in ER Disposition Counseled Patient/Family Regarding: Studies Performed, Diagnosis, Need For Followup - Disposition Referrals: [facility] [Outside] Disposition: HOME/ ROUTINE Disposition Time: 02:13 Condition: FAIR Instructions: Polysubstance Abuse (DC) Forms: [facility] (French) - Clinical Impression Clinical Impression: Multiple substance abuse - Scribe Statement The provider has reviewed the documentation as recorded by the Renayibdonte Stovall All medical record entries made by the Scribe were at my direction and personally dictated by me. I have reviewed the chart and agree that the record accurately reflects my personal performance of the history, physical exam, medical decision making, and the department course for this patient. I have also personally directed, reviewed, and agree with the discharge instructions and disposition.
== END 2017-12-07 05:51 | disposition home or self-care (01) ==
LOC: C.ER 01:26
DX: F19.10 Other psychoactive substance abuse, uncomplicated (principal)

== ENCOUNTER 2017-12-13 14:37 | Emergency (ER) | payer MEDICAID ==
[2017-12-13 14:38] VITALS: BMI 18.6
[2017-12-13 14:50] VITALS: PULSE 72
--- NOTE | 2017-12-13 16:25 | C.PDOC ---
History Of Present Illness 42 year old male brought in by ambulance for flu-like symptoms after using 3 bags heroin. Patient complains of generalized body aches and intermittent chills. Has not taken temperature at home. No vomiting, diarrhea, or urinary symptoms. Time Seen by Provider: 12/13/17 16:06 Chief Complaint (Nursing): Medical Clearance History Per: Patient History/Exam Limitations: no limitations Onset/Duration Of Symptoms: Days Current Symptoms Are (Timing): Still Present Past Medical History Reviewed: Historical Data, Nursing Documentation, Vital Signs Vital Signs: Last Vital Signs Temp 98.6 F 12/13/17 16:47 Pulse 72 12/13/17 16:47 Resp 18 12/13/17 16:47 BP 108/72 12/13/17 16:47 Pulse Ox 99 12/13/17 16:47 - Medical History PMH: Anxiety, Bipolar Disorder, Depression, HTN, Personality Disorder, Pneumonia , Schizophrenia, Seizures Denies: Diabetes, Hepatitis, HIV, Chronic Kidney Disease, Sexually Transmitted Disease Other Surgeries: Colostomy s/p removal - [facility] Procedures ALCOHOL DETOXIFICATION (10/23/14) CENTRAL VENOUS CATHETER PLACEMENT WITH GUIDANCE (08/27/14) CLOSURE SKIN & SUBCUTANEOUS NEC (01/02/14) DETOXIFICATION SERVICES FOR SUBSTANCE ABUSE TREATMENT (11/08/17) DPT ADMINISTRATION (08/11/14) GROUP FORESTRY TECHNICIAN FOR SUBSTANCE ABUSE TREATMENT, PSYCHOEDUCATION (11/08/17) GROUP FORESTRY TECHNICIAN FOR SUBSTANCE ABUSE, COGNITIVE BEHAVIORAL (11/08/17) GROUP PSYCHOTHERAPY (08/07/17) INDIV PSYCHOTHERAPY FOR SUBSTANCE ABUSE TREATMENT, SUPPORT (11/08/17) INDIV PSYCHOTHERAPY FOR SUBSTANCE ABUSE, COGNITIV BEHAVIORAL (11/08/17) INDIV PSYCHOTHERAPY FOR SUBSTANCE ABUSE, PSYCHOEDUCATION (11/08/17) INDIVID PSYCHOTHERAP NEC (12/17/14) INDIVIDUAL PSYCHOTHERAPY, COGNITIVE-BEHAVIORAL (06/03/17) INDIVIDUAL PSYCHOTHERAPY, SUPPORTIVE (08/07/17) INJECT/INFUSE NEC (05/27/13) MEDICATION MANAGEMENT (08/07/17) MEDS MGMT FOR SUBSTANCE ABUSE TREATMENT, OTH REPL MED (08/07/17) OTHER GROUP THERAPY (04/04/14) PSYCHIAT DRUG THERAP NEC (12/17/14) VENOUS PUNCTURE NEC (05/27/13) Family History: States: Unknown Family Hx - Social History Hx Tobacco Use: Yes Hx Alcohol Use: No Hx Substance Use: Yes - Immunization History Hx Tetanus Toxoid Vaccination: No Hx Influenza Vaccination: Yes Hx Pneumococcal Vaccination: No Review Of Systems Except As Marked, All Systems Reviewed And Found Negative. Constitutional: Positive for: Chills, Other (generalized body aches). Negative for: Fever Cardiovascular: Negative for: Chest Pain Respiratory: Negative for: Shortness of Breath Gastrointestinal: Negative for: Vomiting, Abdominal Pain, Diarrhea Physical Exam - Physical Exam Appears: Non-toxic, No Acute Distress Skin: Normal Color, Warm, Dry Head: Atraumatic, Normacephalic Eye(s): bilateral: PERRL, EOMI, Other (pinpoint pupils) Ear(s): Bilateral: Normal Nose: Normal Oral Mucosa: Moist Chest: Symmetrical Cardiovascular: Rhythm Regular, No Murmur Respiratory: Normal Breath Sounds, No Accessory Muscle Use, No Rales, No Rhonchi , No Wheezing Gastrointestinal/Abdominal: Bowel Sounds (active), Soft, No Tenderness Extremity: Bilateral: Normal Color And Temperature, Normal ROM Neurological/Psych: Oriented x3, Normal Speech ED Course And Treatment O2 Sat by Pulse Oximetry: 97 (RA) Pulse Ox Interpretation: Normal Medical Decision Making Medical Decision Making: Impression: persistent heroine abuse, malingering, no acute issues MILD prior elevated liver transaminases prob related to prescribed meds or chronic alcoholism Disposition Doctor Will See Patient In The: Office Counseled Patient/Family Regarding: Studies Performed, Diagnosis, Need For Followup - Disposition Referrals: Alcoholics Anonymous [Outside] [facility] [Outside] [facility] [Outside] [facility] [Outside] [facility] [Outside] Disposition: HOME/ ROUTINE Disposition Time: 16:24 Condition: GOOD Additional Instructions: continue to seek outpatient eval for your substance abuse and psychiatric issues Make efforts to stop your alcohol and heroine abuse. Instructions: Drug Abuse and Drug Addiction (DC), Opioid Use Disorder Forms: [facility] (Danish) - POA Present On Arrival: None - Clinical Impression Clinical Impression: Substance abuse, Opiate abuse, episodic - Scribe Statement The provider has reviewed the documentation as recorded by the Scribe (Angle Kirby) Provider Attestation: All medical record entries made by the Scribe were at my direction and personally dictated by me. I have reviewed the chart and agree that the record accurately reflects my personal performance of the history, physical exam, medical decision making, and the department course for this patient. I have also personally directed, reviewed, and agree with the discharge instructions and disposition.
[2017-12-13 16:47] VITALS: BP 108/72; RESP 18; TEMP 98.6
[2017-12-13 17:27] VITALS: O2SAT 97
== END 2017-12-13 16:48 | disposition home or self-care (01) ==
LOC: C.ER 14:37
DX: F11.10 Opioid abuse, uncomplicated (principal)

== ENCOUNTER 2017-12-26 22:49 | Emergency (ER) | payer MEDICAID ==
[2017-12-26 22:50] VITALS: BMI 18.6
[2017-12-26 23:28] VITALS: BP 150/90; PULSE 77; RESP 20; TEMP 98.5; O2SAT 99
--- NOTE | 2017-12-26 23:42 | C.PDOC ---
History Of Present Illness Patient presents to the ER requesting a place to spend the night. Patients is also requesting a refill of his medications, however, is unsure what he is taking. Denies physical complaints at this time. Time Seen by Provider: 12/26/17 23:38 Chief Complaint (Nursing): Back Pain History Per: Patient History/Exam Limitations: no limitations Onset/Duration Of Symptoms: Hrs Quality Of Discomfort: Unable To Describe Severity: None Pain Scale Rating Of: 0 Previous Symptoms: None Associated Symptoms: None Exacerbating Factor(s): Nothing Recent travel outside of the [place]: No Past Medical History Reviewed: Historical Data, Nursing Documentation, Vital Signs Vital Signs: Last Vital Signs Temp 98.5 F 12/26/17 23:23 Pulse 77 12/26/17 23:23 Resp 20 12/26/17 23:23 BP 150/90 12/26/17 23:23 Pulse Ox 99 12/26/17 23:45 - Medical History PMH: Anxiety, Bipolar Disorder, Depression, HTN, Personality Disorder, Pneumonia , Schizophrenia, Seizures - [facility] Procedures ALCOHOL DETOXIFICATION (10/23/14) CENTRAL VENOUS CATHETER PLACEMENT WITH GUIDANCE (08/27/14) CLOSURE SKIN & SUBCUTANEOUS NEC (01/02/14) DETOXIFICATION SERVICES FOR SUBSTANCE ABUSE TREATMENT (11/08/17) DPT ADMINISTRATION (08/11/14) GROUP QUALITY PROCESS ENGINEER FOR SUBSTANCE ABUSE TREATMENT, PSYCHOEDUCATION (11/08/17) GROUP QUALITY PROCESS ENGINEER FOR SUBSTANCE ABUSE, COGNITIVE BEHAVIORAL (11/08/17) GROUP PSYCHOTHERAPY (08/07/17) INDIV PSYCHOTHERAPY FOR SUBSTANCE ABUSE TREATMENT, SUPPORT (11/08/17) INDIV PSYCHOTHERAPY FOR SUBSTANCE ABUSE, COGNITIV BEHAVIORAL (11/08/17) INDIV PSYCHOTHERAPY FOR SUBSTANCE ABUSE, PSYCHOEDUCATION (11/08/17) INDIVID PSYCHOTHERAP NEC (12/17/14) INDIVIDUAL PSYCHOTHERAPY, COGNITIVE-BEHAVIORAL (06/03/17) INDIVIDUAL PSYCHOTHERAPY, SUPPORTIVE (08/07/17) INJECT/INFUSE NEC (05/27/13) MEDICATION MANAGEMENT (08/07/17) MEDS MGMT FOR SUBSTANCE ABUSE TREATMENT, OTH REPL MED (08/07/17) OTHER GROUP THERAPY (04/04/14) PSYCHIAT DRUG THERAP NEC (12/17/14) VENOUS PUNCTURE NEC (05/27/13) Family History: States: No Known Family Hx - Social History Hx Tobacco Use: Yes Hx Alcohol Use: No Hx Substance Use: Yes - Immunization History Hx Tetanus Toxoid Vaccination: No Hx Influenza Vaccination: Yes Hx Pneumococcal Vaccination: No Review Of Systems Constitutional: Negative for: Fever, Chills Cardiovascular: Negative for: Chest Pain Respiratory: Negative for: Shortness of Breath Gastrointestinal: Negative for: Nausea, Vomiting, Diarrhea Physical Exam - Physical Exam Appears: Non-toxic Skin: Warm, Dry Head: Normacephalic Oral Mucosa: Moist Chest: Symmetrical, No Tenderness Cardiovascular: Rhythm Regular Respiratory: Normal Breath Sounds, No Rales, No Rhonchi, No Wheezing Gastrointestinal/Abdominal: Soft, No Tenderness Neurological/Psych: Oriented x3 ED Course And Treatment O2 Sat by Pulse Oximetry: 99 (Room air) Pulse Ox Interpretation: Normal Progress Note: motrin administered. Disposition Counseled Patient/Family Regarding: Studies Performed, Diagnosis, Need For Followup - Disposition Referrals: [facility] [Outside] Disposition: HOME/ ROUTINE Disposition Time: 23:39 Condition: FAIR Additional Instructions: Must follow up in clinic Instructions: Alcohol Abuse and Alcoholism (DC), Where to Get Help Paying for Your Prescriptions Forms: [employer] (Brazilian) - Clinical Impression Clinical Impression: Medication refill, Alcohol abuse - Scribe Statement The provider has reviewed the documentation as recorded by the Scribe [address] All medical record entries made by the Scribe were at my direction and personally dictated by me. I have reviewed the chart and agree that the record accurately reflects my personal performance of the history, physical exam, medical decision making, and the department course for this patient. I have also personally directed, reviewed, and agree with the discharge instructions and disposition.
== END 2017-12-27 00:16 | disposition home or self-care (01) ==
LOC: C.ER 22:49
DX: Z76.0 Encounter for issue of repeat prescription (principal); F10.10 Alcohol abuse, uncomplicated; Y90.9 Presence of alcohol in blood, level not specified

== ENCOUNTER 2017-12-28 12:08 | Emergency (ER) | payer MEDICAID ==
[2017-12-28 12:08] VITALS: BMI 18.6
[2017-12-28 12:16] VITALS: RESP 18; TEMP 98.8
--- NOTE | 2017-12-28 13:10 | C.PDOC ---
History Of Present Illness 42 year old male is brought to the ED by EMS for evaluation of heroin abuse. Patient was [place] un[place] on a train. He was given Narcan in field and presented to the ED with improved condition. Patient is easily arousable with steady gait in the ED. Denies any complaints at this time. Time Seen by Provider: 12/28/17 13:08 Chief Complaint (Nursing): Substance Abuse History Per: Patient, EMS History/Exam Limitations: no limitations Onset/Duration Of Symptoms: Hrs Current Symptoms Are (Timing): Better Suicide/Self Injury Attempted (Context): None Modifying Factor(s): Narcotics (heroin ) Associated Symptoms: denies: Suicidal Thoughts, Suicidal Plan Involuntary Hold By: None Recent travel outside of the [place]: No Additional History Per: Patient Past Medical History Reviewed: Historical Data, Nursing Documentation, Vital Signs Vital Signs: Last Vital Signs Temp 98.8 F 12/28/17 13:19 Pulse 75 12/28/17 13:19 Resp 18 12/28/17 13:19 BP 152/90 H 12/28/17 13:19 Pulse Ox 99 12/28/17 14:47 - Medical History PMH: Anxiety, Bipolar Disorder, Depression, HTN, Personality Disorder, Pneumonia , Schizophrenia, Seizures Denies: Diabetes, Hepatitis, HIV, Chronic Kidney Disease, Sexually Transmitted Disease Surgical History: No Surg Hx - [facility] Procedures ALCOHOL DETOXIFICATION (10/23/14) CENTRAL VENOUS CATHETER PLACEMENT WITH GUIDANCE (08/27/14) CLOSURE SKIN & SUBCUTANEOUS NEC (01/02/14) DETOXIFICATION SERVICES FOR SUBSTANCE ABUSE TREATMENT (11/08/17) DPT ADMINISTRATION (08/11/14) GROUP PIE DOUGH ROLLER FOR SUBSTANCE ABUSE TREATMENT, PSYCHOEDUCATION (11/08/17) GROUP PIE DOUGH ROLLER FOR SUBSTANCE ABUSE, COGNITIVE BEHAVIORAL (11/08/17) GROUP PSYCHOTHERAPY (08/07/17) INDIV PSYCHOTHERAPY FOR SUBSTANCE ABUSE TREATMENT, SUPPORT (11/08/17) INDIV PSYCHOTHERAPY FOR SUBSTANCE ABUSE, COGNITIV BEHAVIORAL (11/08/17) INDIV PSYCHOTHERAPY FOR SUBSTANCE ABUSE, PSYCHOEDUCATION (11/08/17) INDIVID PSYCHOTHERAP NEC (12/17/14) INDIVIDUAL PSYCHOTHERAPY, COGNITIVE-BEHAVIORAL (06/03/17) INDIVIDUAL PSYCHOTHERAPY, SUPPORTIVE (08/07/17) INJECT/INFUSE NEC (05/27/13) MEDICATION MANAGEMENT (08/07/17) MEDS MGMT FOR SUBSTANCE ABUSE TREATMENT, OTH REPL MED (08/07/17) OTHER GROUP THERAPY (04/04/14) PSYCHIAT DRUG THERAP NEC (12/17/14) VENOUS PUNCTURE NEC (05/27/13) Family History: States: Unknown Family Hx - Social History Hx Tobacco Use: Yes Hx Alcohol Use: No Hx Substance Use: Yes - Immunization History Hx Tetanus Toxoid Vaccination: No Hx Influenza Vaccination: Yes Hx Pneumococcal Vaccination: No Review Of Systems Psych: Negative for: Suicidal ideation Physical Exam - Physical Exam Appears: Non-toxic, No Acute Distress, Unkempt, Other (foul-smelling ) Skin: Normal Color, Warm, Dry Head: Atraumatic, Normacephalic Eye(s): bilateral: Normal Inspection Oral Mucosa: Moist Neck: Supple Chest: Symmetrical, No Deformity, No Tenderness Cardiovascular: Rhythm Regular, No Murmur Respiratory: Normal Breath Sounds, No Rales, No Rhonchi, No Wheezing Extremity: Normal ROM, Capillary Refill (less than 2 seconds ) Neurological/Psych: Oriented x3, Normal Speech, Normal Cognition ED Course And Treatment O2 Sat by Pulse Oximetry: 99 (on RA) Pulse Ox Interpretation: Normal Medical Decision Making Medical Decision Making: narcotics abuse, continued improved with Narcan by EMS back to baseline Disposition Doctor Will See Patient In The: Office Counseled Patient/Family Regarding: Studies Performed, Diagnosis - Disposition Referrals: Alcoholics Anonymous [Outside] [facility] [Outside] [facility] [Outside] [facility] [Outside] [facility] [Outside] Disposition: HOME/ ROUTINE Disposition Time: 13:10 Condition: GOOD Additional Instructions: seek outpatient resources for your substance abuse issues seek nightly long term placement Instructions: Drug Abuse and Drug Addiction (DC) Forms: [employer] (Occitan) - Clinical Impression Clinical Impression: Drug abuse - Scribe Statement The provider has reviewed the documentation as recorded by the Scribe (Marcella Roa) Provider Attestation: All medical record entries made by the Scribe were at my direction and personally dictated by me. I have reviewed the chart and agree that the record accurately reflects my personal performance of the history, physical exam, medical decision making, and the department course for this patient. I have also personally directed, reviewed, and agree with the discharge instructions and disposition.
[2017-12-28 13:19] VITALS: BP 152/90; PULSE 75
[2017-12-28 14:39] VITALS: O2SAT 99
== END 2017-12-28 13:24 | disposition home or self-care (01) ==
LOC: C.ER 12:08
DX: F11.10 Opioid abuse, uncomplicated (principal)

== ENCOUNTER 2018-01-10 21:46 | Emergency (ER) | payer MEDICAID ==
[2018-01-10 21:47] VITALS: BMI 18.6
--- NOTE | 2018-01-10 23:01 | C.PDOC ---
History Of Present Illness 42 year old male presents to the ER via EMS for substance abuse and stating he hit his head tonight. Denies other physical complaints at this time. Chief Complaint (Nursing): Substance Abuse History Per: Patient, EMS History/Exam Limitations: no limitations Onset/Duration Of Symptoms: Hrs Current Symptoms Are (Timing): Still Present Associated Symptoms: denies: Depression, Suicidal Thoughts Involuntary Hold By: None Recent travel outside of the [place]: No Past Medical History Reviewed: Historical Data, Nursing Documentation, Vital Signs Vital Signs: Last Vital Signs Temp 98.5 F 01/11/18 01:42 Pulse 82 01/11/18 01:42 Resp 20 01/11/18 01:42 BP 132/88 01/11/18 01:42 Pulse Ox 98 01/11/18 02:57 - Medical History PMH: Anxiety, Bipolar Disorder, Depression, HTN, Personality Disorder, Pneumonia , Schizophrenia, Seizures - [facility] Procedures ALCOHOL DETOXIFICATION (10/23/14) CENTRAL VENOUS CATHETER PLACEMENT WITH GUIDANCE (08/27/14) CLOSURE SKIN & SUBCUTANEOUS NEC (01/02/14) DETOXIFICATION SERVICES FOR SUBSTANCE ABUSE TREATMENT (11/08/17) DPT ADMINISTRATION (08/11/14) GROUP MAGNETIC PROSPECTING SUPERVISOR FOR SUBSTANCE ABUSE TREATMENT, PSYCHOEDUCATION (11/08/17) GROUP MAGNETIC PROSPECTING SUPERVISOR FOR SUBSTANCE ABUSE, COGNITIVE BEHAVIORAL (11/08/17) GROUP PSYCHOTHERAPY (08/07/17) INDIV PSYCHOTHERAPY FOR SUBSTANCE ABUSE TREATMENT, SUPPORT (11/08/17) INDIV PSYCHOTHERAPY FOR SUBSTANCE ABUSE, COGNITIV BEHAVIORAL (11/08/17) INDIV PSYCHOTHERAPY FOR SUBSTANCE ABUSE, PSYCHOEDUCATION (11/08/17) INDIVID PSYCHOTHERAP NEC (12/17/14) INDIVIDUAL PSYCHOTHERAPY, COGNITIVE-BEHAVIORAL (06/03/17) INDIVIDUAL PSYCHOTHERAPY, SUPPORTIVE (08/07/17) INJECT/INFUSE NEC (05/27/13) MEDICATION MANAGEMENT (08/07/17) MEDS MGMT FOR SUBSTANCE ABUSE TREATMENT, OTH REPL MED (08/07/17) OTHER GROUP THERAPY (04/04/14) PSYCHIAT DRUG THERAP NEC (12/17/14) VENOUS PUNCTURE NEC (05/27/13) Family History: States: Unknown Family Hx - Social History Hx Tobacco Use: Yes Hx Alcohol Use: No Hx Substance Use: Yes - Immunization History Hx Tetanus Toxoid Vaccination: No Hx Influenza Vaccination: Yes Hx Pneumococcal Vaccination: No Review Of Systems Constitutional: Negative for: Fever, Chills Cardiovascular: Negative for: Chest Pain, Palpitations Respiratory: Negative for: Cough, Shortness of Breath Gastrointestinal: Negative for: Nausea, Vomiting Physical Exam - Physical Exam Appears: Non-toxic Skin: Normal Color, Warm, Dry Head: Atraumatic, Normacephalic Eye(s): bilateral: Normal Inspection, PERRL, EOMI Oral Mucosa: Moist Neck: Normal, No Midline Cervical Tenderness, No Paracervical Tenderness, Supple Chest: Symmetrical, No Tenderness Cardiovascular: Rhythm Regular Respiratory: Normal Breath Sounds, No Rales, No Rhonchi, No Wheezing Gastrointestinal/Abdominal: Soft, No Tenderness Neurological/Psych: Oriented x3, Normal Speech ED Course And Treatment O2 Sat by Pulse Oximetry: 98 (Room air) Pulse Ox Interpretation: Normal Progress Note: CT head and blood work ordered. Tegretol administered. Disposition Counseled Patient/Family Regarding: Diagnosis - Disposition Referrals: [facility] [Outside] Disposition: HOME/ ROUTINE Disposition Time: 03:36 Condition: STABLE Prescriptions: Carbamazepine 200 mg PO BID #60 tablet Lisinopril [Prinivil] 10 mg PO DAILY #30 tablet Phenobarbital [PHENobarbital Tab] 32.4 mg PO BID #20 tab Instructions: Seizures, Adult (DC), Minor Head Injury Forms: [facility] (Danish) - POA Present On Arrival: None - Clinical Impression Clinical Impression: Seizure disorder, Head injury without concussion or intracranial hemorrhage - Scribe Statement The provider has reviewed the documentation as recorded by the Scribe [address] All medical record entries made by the Scribe were at my direction and personally dictated by me. I have reviewed the chart and agree that the record accurately reflects my personal performance of the history, physical exam, medical decision making, and the department course for this patient. I have also personally directed, reviewed, and agree with the discharge instructions and disposition.
[2018-01-11 01:43] VITALS: PULSE 82; TEMP 98.5
--- NOTE | 2018-01-11 02:42 | CT ---
EXAM: CT Head Without Intravenous Contrast CLINICAL HISTORY: 42 years old, male; Pain; Headache; Patient HX: 11-09-17; Additional info: Seizure TECHNIQUE: Axial computed tomography images of the head/brain without intravenous contrast. All CT scans at this facility use one or more dose reduction techniques, viz.: automated exposure control; ma/kV adjustment per patient size (including targeted exams where dose is matched to indication; i.e. head); or iterative reconstruction technique. Coronal and sagittal reformatted images were created and reviewed. COMPARISON: No relevant prior studies available. FINDINGS: Brain: There is a focus of decreased density and volume loss in the left parietal and occipital lobes, consistent with encephalomalacia from a remote infarct or other insult. Mild left cerebellar hemisphere encephalomalacia. Encephalomalacia in the inferior frontal lobes bilaterally. No hemorrhage. Ventricles: Unremarkable. No ventriculomegaly. Bones/joints: Unremarkable. No acute fracture. Soft tissues: Unremarkable. Sinuses: There is diffuse mucoperiosteal thickening in the ethmoid and maxillary sinuses, consistent with chronic sinusitis. Mastoid air cells: Unremarkable as visualized. No mastoid effusion. IMPRESSION: No acute findings. Multifocal encephalomalacia as described most severe in the left occipital and parietal lobes.
[2018-01-11 02:53] VITALS: O2SAT 98
[2018-01-11 03:49] VITALS: BP 134/84; RESP 16
== END 2018-01-11 04:05 | disposition home or self-care (01) ==
LOC: C.ER 21:46
DX: G40.909 Epilepsy, unspecified, not intractable, without status epilepticus (principal); S09.90XA Unspecified injury of head, initial encounter; W22.8XXA Striking against or struck by other objects, initial encounter; F20.9 Schizophrenia, unspecified; I10 Essential (primary) hypertension; Z72.0 Tobacco use

== ENCOUNTER 2018-01-18 22:39 | Emergency (ER) | payer MEDICAID ==
[2018-01-18 22:39] VITALS: BMI 18.6
[2018-01-18] MEDS ORDERED: Naloxone 0.4 mg/ml Inj (Adult) IV ONE (22:53)
[2018-01-18] MEDS ORDERED: Naloxone 0.4 mg/ml Inj (Adult) ONE (23:00)
--- NOTE | 2018-01-18 23:24 | C.PDOC ---
Time Seen by Provider: 01/18/18 22:50 Chief Complaint (Nursing): Substance Abuse Past Medical History Vital Signs: Last Vital Signs Temp 98.9 F 01/18/18 22:48 Pulse 86 01/18/18 22:48 Resp 16 01/18/18 22:48 BP 84/54 L 01/18/18 22:48 Pulse Ox 94 L 01/18/18 22:48 - Medical History PMH: Anxiety, Bipolar Disorder, Depression, HTN, Personality Disorder, Pneumonia , Schizophrenia, Seizures Denies: Diabetes, Hepatitis, HIV, Chronic Kidney Disease, Sexually Transmitted Disease - [facility] Procedures ALCOHOL DETOXIFICATION (10/23/14) CENTRAL VENOUS CATHETER PLACEMENT WITH GUIDANCE (08/27/14) CLOSURE SKIN & SUBCUTANEOUS NEC (01/02/14) DETOXIFICATION SERVICES FOR SUBSTANCE ABUSE TREATMENT (11/08/17) DPT ADMINISTRATION (08/11/14) GROUP RETIREMENT OFFICER FOR SUBSTANCE ABUSE TREATMENT, PSYCHOEDUCATION (11/08/17) GROUP RETIREMENT OFFICER FOR SUBSTANCE ABUSE, COGNITIVE BEHAVIORAL (11/08/17) GROUP PSYCHOTHERAPY (08/07/17) INDIV PSYCHOTHERAPY FOR SUBSTANCE ABUSE TREATMENT, SUPPORT (11/08/17) INDIV PSYCHOTHERAPY FOR SUBSTANCE ABUSE, COGNITIV BEHAVIORAL (11/08/17) INDIV PSYCHOTHERAPY FOR SUBSTANCE ABUSE, PSYCHOEDUCATION (11/08/17) INDIVID PSYCHOTHERAP NEC (12/17/14) INDIVIDUAL PSYCHOTHERAPY, COGNITIVE-BEHAVIORAL (06/03/17) INDIVIDUAL PSYCHOTHERAPY, SUPPORTIVE (08/07/17) INJECT/INFUSE NEC (05/27/13) MEDICATION MANAGEMENT (08/07/17) MEDS MGMT FOR SUBSTANCE ABUSE TREATMENT, OTH REPL MED (08/07/17) OTHER GROUP THERAPY (04/04/14) PSYCHIAT DRUG THERAP NEC (12/17/14) VENOUS PUNCTURE NEC (05/27/13) Family History: States: Unknown Family Hx - Social History Hx Tobacco Use: Yes Hx Alcohol Use: Yes Hx Substance Use: Yes - Immunization History Hx Tetanus Toxoid Vaccination: No Hx Influenza Vaccination: Yes Hx Pneumococcal Vaccination: No ED Course And Treatment O2 Sat by Pulse Oximetry: 94 Medical Decision Making Medical Decision Making: ongoing homeless, alcohol and heroine abuse given narcan IV and immediately awake, alert, argumentative, demanding d/c. Disposition Doctor Will See Patient In The: Office Counseled Patient/Family Regarding: Studies Performed, Diagnosis - Disposition Disposition: HOME/ ROUTINE Disposition Time: 23:25 Condition: GOOD - Clinical Impression Clinical Impression: Alcohol abuse, Heroin abuse
[2018-01-18 23:57] VITALS: BP 110/70; PULSE 65; RESP 12; TEMP 98; O2SAT 96
== END 2018-01-18 23:35 | disposition home or self-care (01) ==
LOC: C.ER 22:39
DX: F11.10 Opioid abuse, uncomplicated (principal); F10.10 Alcohol abuse, uncomplicated
CPT/HCPCS: 82948; 96374; 99284; J2310

== ENCOUNTER 2018-02-04 16:29 | Emergency (ER) | payer MEDICAID ==
[2018-02-04 16:30] VITALS: BMI 25.0
[2018-02-04 16:40] VITALS: BP 144/84; PULSE 87; RESP 20; TEMP 98.5; O2SAT 97
--- NOTE | 2018-02-04 17:14 | C.PDOC ---
Time Seen by Provider: 02/04/18 16:54 Chief Complaint (Nursing): Psychiatric Evaluation Past Medical History Vital Signs: Last Vital Signs Temp 98.5 F 02/04/18 16:36 Pulse 87 02/04/18 16:36 Resp 20 02/04/18 16:36 BP 144/84 02/04/18 16:36 Pulse Ox 97 02/04/18 16:36 - Medical History PMH: Anxiety, Bipolar Disorder, Depression, HTN, Personality Disorder, Pneumonia , Schizophrenia, Seizures Denies: Diabetes, Hepatitis, HIV, Chronic Kidney Disease, Sexually Transmitted Disease - [facility] Procedures ALCOHOL DETOXIFICATION (10/23/14) CENTRAL VENOUS CATHETER PLACEMENT WITH GUIDANCE (08/27/14) CLOSURE SKIN & SUBCUTANEOUS NEC (01/02/14) DETOXIFICATION SERVICES FOR SUBSTANCE ABUSE TREATMENT (11/08/17) DPT ADMINISTRATION (08/11/14) GROUP FARM EQUIPMENT ENGINEER FOR SUBSTANCE ABUSE TREATMENT, PSYCHOEDUCATION (11/08/17) GROUP FARM EQUIPMENT ENGINEER FOR SUBSTANCE ABUSE, COGNITIVE BEHAVIORAL (11/08/17) GROUP PSYCHOTHERAPY (08/07/17) INDIV PSYCHOTHERAPY FOR SUBSTANCE ABUSE TREATMENT, SUPPORT (11/08/17) INDIV PSYCHOTHERAPY FOR SUBSTANCE ABUSE, COGNITIV BEHAVIORAL (11/08/17) INDIV PSYCHOTHERAPY FOR SUBSTANCE ABUSE, PSYCHOEDUCATION (11/08/17) INDIVID PSYCHOTHERAP NEC (12/17/14) INDIVIDUAL PSYCHOTHERAPY, COGNITIVE-BEHAVIORAL (06/03/17) INDIVIDUAL PSYCHOTHERAPY, SUPPORTIVE (08/07/17) INJECT/INFUSE NEC (05/27/13) MEDICATION MANAGEMENT (08/07/17) MEDS MGMT FOR SUBSTANCE ABUSE TREATMENT, OTH REPL MED (08/07/17) OTHER GROUP THERAPY (04/04/14) PSYCHIAT DRUG THERAP NEC (12/17/14) VENOUS PUNCTURE NEC (05/27/13) Family History: States: Unknown Family Hx - Social History Hx Tobacco Use: Yes Hx Alcohol Use: No Hx Substance Use: Yes - Immunization History Hx Tetanus Toxoid Vaccination: No Hx Influenza Vaccination: Yes Hx Pneumococcal Vaccination: No ED Course And Treatment O2 Sat by Pulse Oximetry: 97 Disposition - Disposition Disposition: HOME/ ROUTINE Disposition Time: 17:15 Condition: GOOD Instructions: Drug Abuse and Drug Addiction (DC) - Clinical Impression Clinical Impression: Drug abuse
--- NOTE | 2018-02-04 17:15 | C.PDOC ---
History Of Present Illness 42yo male, presents to ER for evaluation after he used 10 bags of heroin IV today. Patient noted to be aggressive in ER. Patient is uncooperative so full ROS and HPI unavailable. Time Seen by Provider: 02/04/18 16:54 Chief Complaint (Nursing): Psychiatric Evaluation Modifying Factor(s): Narcotics Past Medical History Reviewed: Historical Data, Nursing Documentation, Vital Signs Vital Signs: Last Vital Signs Temp 98.5 F 02/04/18 16:36 Pulse 87 02/04/18 16:36 Resp 20 02/04/18 16:36 BP 144/84 02/04/18 16:36 Pulse Ox 97 02/04/18 17:17 - Medical History PMH: Anxiety, Bipolar Disorder, Depression, HTN, Personality Disorder, Pneumonia , Schizophrenia, Seizures Denies: Diabetes, Hepatitis, HIV, Chronic Kidney Disease, Sexually Transmitted Disease - [facility] Procedures ALCOHOL DETOXIFICATION (10/23/14) CENTRAL VENOUS CATHETER PLACEMENT WITH GUIDANCE (08/27/14) CLOSURE SKIN & SUBCUTANEOUS NEC (01/02/14) DETOXIFICATION SERVICES FOR SUBSTANCE ABUSE TREATMENT (11/08/17) DPT ADMINISTRATION (08/11/14) GROUP PHARMACEUTICAL LABORATORY TECHNICIAN FOR SUBSTANCE ABUSE TREATMENT, PSYCHOEDUCATION (11/08/17) GROUP PHARMACEUTICAL LABORATORY TECHNICIAN FOR SUBSTANCE ABUSE, COGNITIVE BEHAVIORAL (11/08/17) GROUP PSYCHOTHERAPY (08/07/17) INDIV PSYCHOTHERAPY FOR SUBSTANCE ABUSE TREATMENT, SUPPORT (11/08/17) INDIV PSYCHOTHERAPY FOR SUBSTANCE ABUSE, COGNITIV BEHAVIORAL (11/08/17) INDIV PSYCHOTHERAPY FOR SUBSTANCE ABUSE, PSYCHOEDUCATION (11/08/17) INDIVID PSYCHOTHERAP NEC (12/17/14) INDIVIDUAL PSYCHOTHERAPY, COGNITIVE-BEHAVIORAL (06/03/17) INDIVIDUAL PSYCHOTHERAPY, SUPPORTIVE (08/07/17) INJECT/INFUSE NEC (05/27/13) MEDICATION MANAGEMENT (08/07/17) MEDS MGMT FOR SUBSTANCE ABUSE TREATMENT, OTH REPL MED (08/07/17) OTHER GROUP THERAPY (04/04/14) PSYCHIAT DRUG THERAP NEC (12/17/14) VENOUS PUNCTURE NEC (05/27/13) Family History: States: Unknown Family Hx - Social History Hx Tobacco Use: Yes Hx Alcohol Use: No Hx Substance Use: Yes - Immunization History Hx Tetanus Toxoid Vaccination: No Hx Influenza Vaccination: Yes Hx Pneumococcal Vaccination: No Review Of Systems Review Of Systems: ROS cannot be obtained secondary to pt's inabilty to answer questions. Physical Exam - Physical Exam Additional Physical Exam Comments: unable to assess as patient is aggressive ED Course And Treatment O2 Sat by Pulse Oximetry: 97 (RA) Pulse Ox Interpretation: Normal Medical Decision Making Medical Decision Making: Patient noted to be screaming and yelling at ER staff, and proceeded to lock himself in the bathroom. Patient had to be escorted out of facility by security. Disposition - Disposition Disposition: HOME/ ROUTINE Disposition Time: 16:36 Condition: GOOD Instructions: Drug Abuse and Drug Addiction (DC) Forms: [employer] (Turkish) - Clinical Impression Clinical Impression: Drug abuse - Scribe Statement The provider has reviewed the documentation as recorded by the Scribe (Candi Deutsch) Provider Attestation: All medical record entries made by the Scribe were at my direction and personally dictated by me. I have reviewed the chart and agree that the record accurately reflects my personal performance of the history, physical exam, medical decision making, and the department course for this patient. I have also personally directed, reviewed, and agree with the discharge instructions and disposition.
== END 2018-02-04 17:12 | disposition home or self-care (01) ==
LOC: C.ER 16:29
DX: F19.10 Other psychoactive substance abuse, uncomplicated (principal)

== ENCOUNTER 2018-02-05 17:30 | Emergency (ER) | payer MEDICAID ==
[2018-02-05 17:30] VITALS: BMI 25.0
[2018-02-05 17:36] VITALS: BP 147/88; PULSE 81; RESP 20; TEMP 98.5; O2SAT 97
--- NOTE | 2018-02-05 18:48 | C.PDOC ---
History Of Present Illness 42 y/o male presents to ED by EMS stating he has heroin problems and mental illness, seeking help. HPI limited secondary to patient being intoxicated and sleepy. Time Seen by Provider: 02/05/18 18:13 Chief Complaint (Nursing): Substance Abuse History Per: Patient, EMS History/Exam Limitations: no limitations Onset/Duration Of Symptoms: Days Current Symptoms Are (Timing): Still Present Past Medical History Reviewed: Historical Data, Nursing Documentation, Vital Signs Vital Signs: Last Vital Signs Temp 98.5 F 02/05/18 17:35 Pulse 81 02/05/18 17:35 Resp 20 02/05/18 17:35 BP 147/88 02/05/18 17:35 Pulse Ox 97 02/05/18 20:23 - Medical History PMH: Anxiety, Bipolar Disorder, Depression, HTN, Personality Disorder, Pneumonia , Schizophrenia, Seizures Surgical History: No Surg Hx - [facility] Procedures ALCOHOL DETOXIFICATION (10/23/14) CENTRAL VENOUS CATHETER PLACEMENT WITH GUIDANCE (08/27/14) CLOSURE SKIN & SUBCUTANEOUS NEC (01/02/14) DETOXIFICATION SERVICES FOR SUBSTANCE ABUSE TREATMENT (11/08/17) DPT ADMINISTRATION (08/11/14) GROUP PLASTIC WORKER FOR SUBSTANCE ABUSE TREATMENT, PSYCHOEDUCATION (11/08/17) GROUP PLASTIC WORKER FOR SUBSTANCE ABUSE, COGNITIVE BEHAVIORAL (11/08/17) GROUP PSYCHOTHERAPY (08/07/17) INDIV PSYCHOTHERAPY FOR SUBSTANCE ABUSE TREATMENT, SUPPORT (11/08/17) INDIV PSYCHOTHERAPY FOR SUBSTANCE ABUSE, COGNITIV BEHAVIORAL (11/08/17) INDIV PSYCHOTHERAPY FOR SUBSTANCE ABUSE, PSYCHOEDUCATION (11/08/17) INDIVID PSYCHOTHERAP NEC (12/17/14) INDIVIDUAL PSYCHOTHERAPY, COGNITIVE-BEHAVIORAL (06/03/17) INDIVIDUAL PSYCHOTHERAPY, SUPPORTIVE (08/07/17) INJECT/INFUSE NEC (05/27/13) MEDICATION MANAGEMENT (08/07/17) MEDS MGMT FOR SUBSTANCE ABUSE TREATMENT, OTH REPL MED (08/07/17) OTHER GROUP THERAPY (04/04/14) PSYCHIAT DRUG THERAP NEC (12/17/14) VENOUS PUNCTURE NEC (05/27/13) Family History: States: No Known Family Hx - Social History Hx Tobacco Use: Yes Hx Alcohol Use: No Hx Substance Use: Yes - Immunization History Hx Tetanus Toxoid Vaccination: No Hx Influenza Vaccination: Yes Hx Pneumococcal Vaccination: No Review Of Systems Constitutional: Negative for: Fever, Chills Cardiovascular: Negative for: Chest Pain Respiratory: Negative for: Shortness of Breath Gastrointestinal: Negative for: Nausea, Vomiting Psych: Positive for: Other (Intoxicated ) Physical Exam - Physical Exam Appears: Non-toxic, No Acute Distress Skin: Warm, Dry, No Rash Head: Atraumatic, Normacephalic Eye(s): bilateral: PERRL, EOMI Oral Mucosa: Moist Neck: Normal ROM, Supple Cardiovascular: Rhythm Regular Respiratory: Normal Breath Sounds, No Rales, No Rhonchi, No Wheezing Gastrointestinal/Abdominal: Soft, No Tenderness, No Guarding, No Rebound Neurological/Psych: Oriented x3 ED Course And Treatment O2 Sat by Pulse Oximetry: 97 (RA) Pulse Ox Interpretation: Normal Progress Note: Patient ambulatory in ED and refusing to remain on the stretcher. He is in no distress and was able to eat and drink. He is refusing any further care and left without notifying any staff. Disposition - Disposition Disposition: ELOPEMENT - ER ONLY Disposition Time: 19:30 Condition: IMPROVED - Clinical Impression Clinical Impression: Heroin abuse, Schizophrenia - Scribe Statement The provider has reviewed the documentation as recorded by the Renayibdonte Horn All medical record entries made by the Mickey were at my direction and personally dictated by me. I have reviewed the chart and agree that the record accurately reflects my personal performance of the history, physical exam, medical decision making, and the department course for this patient. I have also personally directed, reviewed, and agree with the discharge instructions and disposition.
== END 2018-02-05 19:27 | disposition left against medical advice (07) ==
LOC: C.ER 17:30
DX: F11.10 Opioid abuse, uncomplicated (principal); F20.9 Schizophrenia, unspecified

== ENCOUNTER 2018-02-21 16:07 | Emergency (ER) | payer MEDICAID ==
[2018-02-21 16:08] VITALS: BMI 25.0
[2018-02-21 16:29] VITALS: RESP 18
[2018-02-21] MEDS ORDERED: Sodium Chloride 0.9% 1,000 ML IV ONE (16:39)
[2018-02-21 17:45] LABS: BASO % 0.5 % (0.0-2.0); EOS % 0.3 % (0.0-4.0); HEMOGLOBIN 11.9 g/dL (12.0-18.0); LYMPH # 1.7 K/uL (1.0-4.3); LYMPH % 19.9 % (20.0-40.0); MEAN CELL VOLUME 83.9 fL (80.0-94.0); MEAN CORPUSCULAR HEMOGLOBIN 27.9 pg (27.0-31.0); MEAN CORPUSCULAR HGB CONC 33.2 g/dL (33.0-37.0); MEAN PLATELET VOLUME 8.7 fL (7.2-11.7); MONO # 0.9 K/uL (0.0-0.8); MONO % 10.3 % (0.0-10.0); NEUT # 5.9 K/uL (1.8-7.0); NRBC % 0.1 % (0.0-2.0); RBC 4.27 Mil/uL (4.40-5.90); RED CELL DISTRIBUTION WIDTH 14.9 % (11.5-14.5); WHITE BLOOD COUNT 8.5 K/uL (4.8-10.8)
[2018-02-21 17:58] LABS: ALB/GLOB RATIO 1.2 (1.0-2.1); ALBUMIN 3.8 g/dL (3.5-5.0); ALT/SGPT 30 U/L (21-72); AST/SGOT 24 U/L (17-59); BLOOD UREA NITROGEN 18 mg/dL (9-20); CALCIUM 8.9 mg/dl (8.6-10.4); GFR AFRICAN-AMERICAN > 60; GFR NON-AFRICAN AMERICAN > 60
[2018-02-21] MEDS ORDERED: Sodium Chloride 0.9% 250 ML IV ONE (18:11)
--- NOTE | 2018-02-21 18:32 | C.PDOC ---
History Of Present Illness 42-year-old male, is brought to the emergency department by family with complaints of altered mental status. Family states patient "isn't acting right" and they want him to be checked out. Patient is refusing to answer any questions , about psychiatric history or medications. No physical complaints at this time. Chief Complaint (Nursing): Altered Mental Status History Per: Family Current Symptoms Are (Timing): Still Present Past Medical History Reviewed: Historical Data, Nursing Documentation, Vital Signs Vital Signs: Last Vital Signs Temp 98.7 F 02/21/18 19:45 Pulse 84 02/21/18 19:45 Resp 18 02/21/18 19:45 BP 122/70 02/21/18 19:45 Pulse Ox 98 02/21/18 19:45 - Medical History PMH: Anxiety, Bipolar Disorder, Depression, HTN, Personality Disorder, Pneumonia , Schizophrenia, Seizures - [facility] Procedures ALCOHOL DETOXIFICATION (10/23/14) CENTRAL VENOUS CATHETER PLACEMENT WITH GUIDANCE (08/27/14) CLOSURE SKIN & SUBCUTANEOUS NEC (01/02/14) DETOXIFICATION SERVICES FOR SUBSTANCE ABUSE TREATMENT (11/08/17) DPT ADMINISTRATION (08/11/14) GROUP FIELD TAX AUDITOR FOR SUBSTANCE ABUSE TREATMENT, PSYCHOEDUCATION (11/08/17) GROUP FIELD TAX AUDITOR FOR SUBSTANCE ABUSE, COGNITIVE BEHAVIORAL (11/08/17) GROUP PSYCHOTHERAPY (08/07/17) INDIV PSYCHOTHERAPY FOR SUBSTANCE ABUSE TREATMENT, SUPPORT (11/08/17) INDIV PSYCHOTHERAPY FOR SUBSTANCE ABUSE, COGNITIV BEHAVIORAL (11/08/17) INDIV PSYCHOTHERAPY FOR SUBSTANCE ABUSE, PSYCHOEDUCATION (11/08/17) INDIVID PSYCHOTHERAP NEC (12/17/14) INDIVIDUAL PSYCHOTHERAPY, COGNITIVE-BEHAVIORAL (06/03/17) INDIVIDUAL PSYCHOTHERAPY, SUPPORTIVE (08/07/17) INJECT/INFUSE NEC (05/27/13) MEDICATION MANAGEMENT (08/07/17) MEDS MGMT FOR SUBSTANCE ABUSE TREATMENT, OTH REPL MED (08/07/17) OTHER GROUP THERAPY (04/04/14) PSYCHIAT DRUG THERAP NEC (12/17/14) VENOUS PUNCTURE NEC (05/27/13) Family History: States: No Known Family Hx - Social History Hx Tobacco Use: Yes Hx Alcohol Use: No Hx Substance Use: Yes - Immunization History Hx Tetanus Toxoid Vaccination: No Hx Influenza Vaccination: Yes Hx Pneumococcal Vaccination: No Review Of Systems Review Of Systems: ROS cannot be obtained secondary to pt's inabilty to answer questions. Physical Exam - Physical Exam Appears: Non-toxic, No Acute Distress Skin: Normal Color, Warm, Dry, Other (old healed scars to upper extremities.) Head: Atraumatic, Normacephalic Eye(s): bilateral: Normal Inspection, PERRL, EOMI Nose: Normal Oral Mucosa: Moist Lips: Normal Appearing Neck: Normal ROM Cardiovascular: Rhythm Regular, No Murmur Respiratory: Normal Breath Sounds, No Accessory Muscle Use Gastrointestinal/Abdominal: Soft, No Tenderness Back: Normal Inspection Extremity: Normal ROM, No Deformity, No Swelling Neurological/Psych: Oriented x3, Normal Speech ED Course And Treatment - Laboratory Results Result Diagrams: 02/21/18 17:42 02/21/18 17:42 O2 Sat by Pulse Oximetry: 99 (RA) Pulse Ox Interpretation: Normal Disposition - Disposition Referrals: [facility], [Non-Staff] - Disposition: HOME/ ROUTINE Disposition Time: 19:20 Condition: GOOD Additional Instructions: VISHAL CHAVEZ, thank you for letting us take care of you today. Your provider was Kadeem Goode DO. The emergency medical care you received today was directed at your acute symptoms. If you were prescribed any medication, please fill it and take as directed. It may take several days for your symptoms to resolve. Return to the Emergency Department if your symptoms worsen, do not improve, or if you have any other problems. Please contact your doctor or call one of the physicians/clinics you have been referred to that are listed on the Patient Visit Information form that is included in your discharge packet. Bring any paperwork you were given at discharge with you along with any medications you are taking to your follow up visit. Our treatment cannot replace ongoing medical care by a primary care provider outside of the emergency department. Thank you for allowing the [facility] team to be part of your care today. Follow up with your primary care doctor in 2-3 days for re-evaluation and further management. Instructions: Polysubstance Abuse (DC) Forms: [employer] (Kuwaiti) - Clinical Impression Clinical Impression: Multiple substance abuse - Scribe Statement The provider has reviewed the documentation as recorded by the Scribe (Nima Novak) All medical record entries made by the Scribe were at my direction and personally dictated by me. I have reviewed the chart and agree that the record accurately reflects my personal performance of the history, physical exam, medical decision making, and the department course for this patient. I have also personally directed, reviewed, and agree with the discharge instructions and disposition.
[2018-02-21 19:05] LABS: URINE BILIRUBIN NEGATIVE (NEGATIVE); URINE BLOOD NEGATIVE (NEGATIVE); URINE CLARITY Clear (Clear); URINE COLOR Yellow (YELLOW); URINE GLUCOSE (UA) NORMAL (Normal); URINE LEUKOCYTE ESTERASE NEG Leu/uL (Negative); URINE PROTEIN NEGATIVE (NEGATIVE)
[2018-02-21 19:19] LABS: BENZODIAZEPINES, UR NEGATIVE (NEGATIVE); PHENCYCLIDINE, UR NEGATIVE (NEGATIVE)
[2018-02-21 19:20] LABS: BARBITURATES, UR POSITIVE (NEGATIVE); OPIATES, UR POSITIVE (NEGATIVE)
[2018-02-21 20:04] VITALS: BP 122/70; PULSE 84; TEMP 98.7
[2018-02-22 00:30] VITALS: O2SAT 99
== END 2018-02-21 20:03 | disposition home or self-care (01) ==
LOC: C.ER 16:07
DX: F19.10 Other psychoactive substance abuse, uncomplicated (principal)
CPT/HCPCS: 80053; 80320; 80324; 80345; 80346; 80349; 80353; 80358; 80361; 81001; 82140; 82948; 83992; 85025; 96360; 99285; J7030

== ENCOUNTER 2018-04-28 22:02 | Emergency (ER) | payer MEDICAID ==
[2018-04-28 22:03] VITALS: BMI 25.0
[2018-04-28 22:11] VITALS: TEMP 98.1; O2SAT 98
--- NOTE | 2018-04-28 22:40 | C.PDOC ---
History Of Present Illness 42 year old male presents to the ED for evaluation. Patient states he is feeling depressed and wants to see a doctor because of it. Patient denies SI/HI , hallucinations, other medical complaints. Time Seen by Provider: 04/28/18 22:25 Chief Complaint (Nursing): Psychiatric Evaluation History Per: Patient History/Exam Limitations: no limitations Onset/Duration Of Symptoms: Days Current Symptoms Are (Timing): Still Present Suicide/Self Injury Attempted (Context): None Modifying Factor(s): None Associated Symptoms: Depression. denies: Suicidal Thoughts, Suicidal Plan Recent travel outside of the [place]: No Additional History Per: Patient Past Medical History Reviewed: Historical Data, Nursing Documentation, Vital Signs Vital Signs: Last Vital Signs Temp 98.1 F 04/28/18 22:08 Pulse 81 04/29/18 05:47 Resp 18 04/29/18 05:47 BP 126/65 04/29/18 05:47 Pulse Ox 98 04/29/18 05:47 - Medical History PMH: Anxiety, Bipolar Disorder, Depression, HTN, Personality Disorder, Pneumonia , Schizophrenia, Seizures Denies: Diabetes, Hepatitis, HIV, Chronic Kidney Disease, Sexually Transmitted Disease Surgical History: No Surg Hx - [facility] Procedures ALCOHOL DETOXIFICATION (10/23/14) CENTRAL VENOUS CATHETER PLACEMENT WITH GUIDANCE (08/27/14) CLOSURE SKIN & SUBCUTANEOUS NEC (01/02/14) DETOXIFICATION SERVICES FOR SUBSTANCE ABUSE TREATMENT (11/08/17) DPT ADMINISTRATION (08/11/14) GROUP SITE FOREMAN FOR SUBSTANCE ABUSE TREATMENT, PSYCHOEDUCATION (11/08/17) GROUP SITE FOREMAN FOR SUBSTANCE ABUSE, COGNITIVE BEHAVIORAL (11/08/17) GROUP PSYCHOTHERAPY (08/07/17) INDIV PSYCHOTHERAPY FOR SUBSTANCE ABUSE TREATMENT, SUPPORT (11/08/17) INDIV PSYCHOTHERAPY FOR SUBSTANCE ABUSE, COGNITIV BEHAVIORAL (11/08/17) INDIV PSYCHOTHERAPY FOR SUBSTANCE ABUSE, PSYCHOEDUCATION (11/08/17) INDIVID PSYCHOTHERAP NEC (12/17/14) INDIVIDUAL PSYCHOTHERAPY, COGNITIVE-BEHAVIORAL (06/03/17) INDIVIDUAL PSYCHOTHERAPY, SUPPORTIVE (08/07/17) INJECT/INFUSE NEC (05/27/13) MEDICATION MANAGEMENT (08/07/17) MEDS MGMT FOR SUBSTANCE ABUSE TREATMENT, OTH REPL MED (08/07/17) OTHER GROUP THERAPY (04/04/14) PSYCHIAT DRUG THERAP NEC (12/17/14) VENOUS PUNCTURE NEC (05/27/13) Family History: States: Unknown Family Hx - Social History Hx Tobacco Use: Yes Hx Alcohol Use: No Hx Substance Use: Yes - Immunization History Hx Tetanus Toxoid Vaccination: No Hx Influenza Vaccination: Yes Hx Pneumococcal Vaccination: No Review Of Systems Except As Marked, All Systems Reviewed And Found Negative. Psych: Positive for: Depression. Negative for: Suicidal ideation Physical Exam - Physical Exam Appears: Non-toxic, No Acute Distress Skin: Normal Color, Warm, Dry Head: Atraumatic, Normacephalic Eye(s): bilateral: Normal Inspection Neck: Normal ROM, Supple Chest: Symmetrical Cardiovascular: Rhythm Regular Respiratory: Normal Breath Sounds, No Rales, No Rhonchi, No Wheezing Gastrointestinal/Abdominal: Soft, No Tenderness, No Guarding, No Rebound Extremity: Normal ROM, No Tenderness, No Swelling Neurological/Psych: Oriented x3, Normal Speech Gait: Steady ED Course And Treatment - Laboratory Results Result Diagrams: 04/28/18 23:00 04/28/18 23:00 O2 Sat by Pulse Oximetry: 98 (ON RA) Pulse Ox Interpretation: Normal Medical Decision Making Medical Decision Making: Plan: * Labs * UA * Crisis evaluation 23:55 - medically cleared 01:00 - patient is medically cleared for D/, referred to [facility] facility by hothouse worker. Disposition - Disposition Referrals: [facility] [Outside] [facility] [Outside] [facility] [employer] [facility] [Outside] Disposition: HOME/ ROUTINE Disposition Time: 05:00 Condition: GOOD Additional Instructions: return to er with worsening symptoms or concerns. Instructions: Depression Forms: [employer] [employer] (Greek) - Clinical Impression Clinical Impression: Depression - Scribe Statement The provider has reviewed the documentation as recorded by the Scribe Johny Chávez All medical record entries made by the Scribe were at my direction and personally dictated by me. I have reviewed the chart and agree that the record accurately reflects my personal performance of the history, physical exam, medical decision making, and the department course for this patient. I have also personally directed, reviewed, and agree with the discharge instructions and disposition.
[2018-04-28 23:03] LABS: BASO # 0.1 K/uL (0.0-0.2); BASO % 0.9 % (0.0-2.0); EOS # 0.2 K/uL (0.0-0.7); EOS % 2.6 % (0.0-4.0); HEMOGLOBIN 10.2 g/dL (12.0-18.0); LYMPH # 2.3 K/uL (1.0-4.3); LYMPH % 32.2 % (20.0-40.0); MEAN CELL VOLUME 83.6 fL (80.0-94.0); MEAN CORPUSCULAR HEMOGLOBIN 28.3 pg (27.0-31.0); MEAN CORPUSCULAR HGB CONC 33.9 g/dL (33.0-37.0); MEAN PLATELET VOLUME 8.7 fL (7.2-11.7); MONO # 0.6 K/uL (0.0-0.8); NEUT # 4.1 K/uL (1.8-7.0); NEUT % 56.3 % (50.0-75.0); RBC 3.62 Mil/uL (4.40-5.90); RED CELL DISTRIBUTION WIDTH 16.3 % (11.5-14.5); WHITE BLOOD COUNT 7.2 K/uL (4.8-10.8)
[2018-04-28 23:16] LABS: ACETAMINOPHEN < 10.0 ug/mL (10.0-30.0); SALICYLATE < 1.0 mg/dL 1
[2018-04-28 23:19] LABS: ALB/GLOB RATIO 1.2 (1.0-2.1); ALBUMIN 3.7 g/dL (3.5-5.0); ALT/SGPT 30 U/L (21-72); AST/SGOT 27 U/L (17-59); BLOOD UREA NITROGEN 12 mg/dL (9-20); CALCIUM 8.8 mg/dl (8.6-10.4); GFR NON-AFRICAN AMERICAN > 60
[2018-04-28 23:37] LABS: URINE BACTERIA RARE (<OCC); URINE BILIRUBIN NEGATIVE (NEGATIVE); URINE BLOOD NEGATIVE (NEGATIVE); URINE CLARITY Clear (Clear); URINE GLUCOSE (UA) NORMAL (Normal); URINE LEUKOCYTE ESTERASE NEG Leu/uL (Negative); URINE PROTEIN NEGATIVE (NEGATIVE)
[2018-04-28 23:44] LABS: URINE COLOR YELLOW (YELLOW)
[2018-04-28 23:50] LABS: BENZODIAZEPINES, UR NEGATIVE (NEGATIVE); PHENCYCLIDINE, UR NEGATIVE (NEGATIVE)
[2018-04-28 23:55] LABS: BARBITURATES, UR POSITIVE (NEGATIVE); OPIATES, UR POSITIVE (NEGATIVE)
[2018-04-29 04:17] VITALS: PULSE 81
[2018-04-29 05:49] VITALS: BP 126/65; RESP 18
== END 2018-04-29 05:50 | disposition home or self-care (01) ==
LOC: C.ER 22:02
DX: F32.9 Major depressive disorder, single episode, unspecified (principal)

== ENCOUNTER 2018-05-02 11:56 | Emergency (ER) | payer MEDICAID ==
[2018-05-02 11:57] VITALS: BMI 25.0
[2018-05-02 12:05] VITALS: TEMP 98.6; O2SAT 100
--- NOTE | 2018-05-02 12:52 | C.PDOC ---
History Of Present Illness 42 y/o male with history of seizures brought to ED by EMS s/p seizure witnessed by port authority prior to arrival. At ED patient states he is compliant with seizure medication and denies any other physical complaints at this time. Time Seen by Provider: 05/02/18 12:17 Chief Complaint (Nursing): Seizure History Per: Patient, EMS History/Exam Limitations: no limitations Recent Seizure Activity Began: Just Before Arrival Number Of Seizures: One Past Medical History Reviewed: Historical Data, Nursing Documentation, Vital Signs Vital Signs: Last Vital Signs Temp 98.6 F 05/02/18 12:01 Pulse 62 05/02/18 13:39 Resp 18 05/02/18 13:39 BP 141/89 05/02/18 13:39 Pulse Ox 100 05/02/18 13:39 - Medical History PMH: Anxiety, Bipolar Disorder, Depression, HTN, Personality Disorder, Pneumonia , Schizophrenia, Seizures Surgical History: No Surg Hx - [facility] Procedures ALCOHOL DETOXIFICATION (10/23/14) CENTRAL VENOUS CATHETER PLACEMENT WITH GUIDANCE (08/27/14) CLOSURE SKIN & SUBCUTANEOUS NEC (01/02/14) DETOXIFICATION SERVICES FOR SUBSTANCE ABUSE TREATMENT (11/08/17) DPT ADMINISTRATION (08/11/14) GROUP STUDIO POTTER FOR SUBSTANCE ABUSE TREATMENT, PSYCHOEDUCATION (11/08/17) GROUP STUDIO POTTER FOR SUBSTANCE ABUSE, COGNITIVE BEHAVIORAL (11/08/17) GROUP PSYCHOTHERAPY (08/07/17) INDIV PSYCHOTHERAPY FOR SUBSTANCE ABUSE TREATMENT, SUPPORT (11/08/17) INDIV PSYCHOTHERAPY FOR SUBSTANCE ABUSE, COGNITIV BEHAVIORAL (11/08/17) INDIV PSYCHOTHERAPY FOR SUBSTANCE ABUSE, PSYCHOEDUCATION (11/08/17) INDIVID PSYCHOTHERAP NEC (12/17/14) INDIVIDUAL PSYCHOTHERAPY, COGNITIVE-BEHAVIORAL (06/03/17) INDIVIDUAL PSYCHOTHERAPY, SUPPORTIVE (08/07/17) INJECT/INFUSE NEC (05/27/13) MEDICATION MANAGEMENT (08/07/17) MEDS MGMT FOR SUBSTANCE ABUSE TREATMENT, OTH REPL MED (08/07/17) OTHER GROUP THERAPY (04/04/14) PSYCHIAT DRUG THERAP NEC (12/17/14) VENOUS PUNCTURE NEC (05/27/13) Family History: States: No Known Family Hx - Social History Hx Tobacco Use: Yes Hx Alcohol Use: No Hx Substance Use: Yes - Immunization History Hx Tetanus Toxoid Vaccination: No Hx Influenza Vaccination: Yes Hx Pneumococcal Vaccination: No Review Of Systems Except As Marked, All Systems Reviewed And Found Negative. Neurological: Positive for: Seizures Physical Exam - Physical Exam Appears: Non-toxic, No Acute Distress Skin: Warm, Dry, No Rash Head: Atraumatic, Normacephalic Eye(s): bilateral: Normal Inspection Oral Mucosa: Moist Neck: Supple Cardiovascular: Rhythm Regular Respiratory: Normal Breath Sounds, No Rales, No Rhonchi, No Wheezing Gastrointestinal/Abdominal: Soft, No Tenderness, No Guarding, No Rebound Neurological/Psych: Oriented x3, Normal Speech, Normal Cognition ED Course And Treatment O2 Sat by Pulse Oximetry: 100 (RA) Pulse Ox Interpretation: Normal Against Medical Advice - AMA Patient Left Against Medical Advice: The patient declines admission to the hospital and wishes to leave the Emergency Department. This action is against my medical advice. This decision was made with informed refusal. The patient was told that admission to the hospital is necessary. Explanation of the reasons why were discussed. The risks of leaving were explained to the patient and include, but are not limited to, worsening of known or currently unknown conditions, permanent disability and from undiagnosed or untreated conditions. The patient has the capacity to make this informed decision and understands my explanation of the current medical problem and risks of leaving. The patient voluntarily accepts these risks and signed an AMA form documenting our conversation. The patient was given the opportunity to ask questions and reconsider. The patient was encouraged to return to the Emergency Department at any time for further care. Medical Decision Making Medical Decision Making: Assessment: Seizure Progress: Patient is AAOX3 and is refusing labs, studies. Patient requests to leave AMA. Disposition - Disposition Disposition: AGAINST MEDICAL ADVICE Disposition Time: 13:22 Condition: STABLE Forms: [employer] (Armenian) - Clinical Impression Clinical Impression: Seizure - Scribe Statement The provider has reviewed the documentation as recorded by the Scribe Tashia Horn All medical record entries made by the Scribe were at my direction and personally dictated by me. I have reviewed the chart and agree that the record accurately reflects my personal performance of the history, physical exam, medical decision making, and the department course for this patient. I have also personally directed, reviewed, and agree with the discharge instructions and disposition.
[2018-05-02 13:41] VITALS: BP 141/89; PULSE 62; RESP 18
== END 2018-05-02 13:42 | disposition left against medical advice (07) ==
LOC: C.ER 11:56
DX: R56.9 Unspecified convulsions (principal); F20.9 Schizophrenia, unspecified; I10 Essential (primary) hypertension; Z72.0 Tobacco use

== ENCOUNTER 2018-05-02 17:37 | Emergency (ER) | payer MEDICAID ==
[2018-05-02 17:38] VITALS: BMI 25.0
--- NOTE | 2018-05-02 19:16 | C.PDOC ---
History Of Present Illness 42 year old male is brought into the emergency department by BLS, accompanied by ABDELRAHMAN stating that he needs a place to stay. He denies suicidal or homicidal ideation. Time Seen by Provider: 05/02/18 19:15 Chief Complaint (Nursing): Medical Clearance History Per: Patient History/Exam Limitations: no limitations Onset/Duration Of Symptoms: Hrs Past Medical History Reviewed: Historical Data, Nursing Documentation, Vital Signs Vital Signs: Last Vital Signs Temp 98.2 F 05/02/18 22:49 Pulse 84 05/02/18 22:49 Resp 20 05/02/18 22:49 BP 130/81 05/02/18 22:49 Pulse Ox 97 05/02/18 22:49 - Medical History PMH: Anxiety, Bipolar Disorder, Depression, HTN, Personality Disorder, Pneumonia , Schizophrenia, Seizures Denies: Diabetes, Hepatitis, HIV, Chronic Kidney Disease, Sexually Transmitted Disease Surgical History: No Surg Hx - [facility] Procedures ALCOHOL DETOXIFICATION (10/23/14) CENTRAL VENOUS CATHETER PLACEMENT WITH GUIDANCE (08/27/14) CLOSURE SKIN & SUBCUTANEOUS NEC (01/02/14) DETOXIFICATION SERVICES FOR SUBSTANCE ABUSE TREATMENT (11/08/17) DPT ADMINISTRATION (08/11/14) GROUP PRE PRESS PROOFER FOR SUBSTANCE ABUSE TREATMENT, PSYCHOEDUCATION (11/08/17) GROUP PRE PRESS PROOFER FOR SUBSTANCE ABUSE, COGNITIVE BEHAVIORAL (11/08/17) GROUP PSYCHOTHERAPY (08/07/17) INDIV PSYCHOTHERAPY FOR SUBSTANCE ABUSE TREATMENT, SUPPORT (11/08/17) INDIV PSYCHOTHERAPY FOR SUBSTANCE ABUSE, COGNITIV BEHAVIORAL (11/08/17) INDIV PSYCHOTHERAPY FOR SUBSTANCE ABUSE, PSYCHOEDUCATION (11/08/17) INDIVID PSYCHOTHERAP NEC (12/17/14) INDIVIDUAL PSYCHOTHERAPY, COGNITIVE-BEHAVIORAL (06/03/17) INDIVIDUAL PSYCHOTHERAPY, SUPPORTIVE (08/07/17) INJECT/INFUSE NEC (05/27/13) MEDICATION MANAGEMENT (08/07/17) MEDS MGMT FOR SUBSTANCE ABUSE TREATMENT, OTH REPL MED (08/07/17) OTHER GROUP THERAPY (04/04/14) PSYCHIAT DRUG THERAP NEC (12/17/14) VENOUS PUNCTURE NEC (05/27/13) Family History: States: Unknown Family Hx - Social History Hx Tobacco Use: Yes Hx Alcohol Use: No Hx Substance Use: Yes - Immunization History Hx Tetanus Toxoid Vaccination: No Hx Influenza Vaccination: Yes Hx Pneumococcal Vaccination: No Review Of Systems Neurological: Negative for: Altered Mental Status Psych: Negative for: Suicidal ideation Physical Exam - Physical Exam Appears: Non-toxic, No Acute Distress Skin: Warm, Dry Head: Normacephalic Eye(s): bilateral: Normal Inspection Oral Mucosa: Moist Neck: Trachea Midline, Supple Chest: Symmetrical Cardiovascular: Rhythm Regular, No Murmur Respiratory: No Rales, No Rhonchi, No Wheezing Neurological/Psych: Oriented x3 ED Course And Treatment O2 Sat by Pulse Oximetry: 95 (RA) Pulse Ox Interpretation: Normal Disposition Counseled Patient/Family Regarding: Studies Performed, Diagnosis, Need For Followup - Disposition Referrals: [facility] [Outside] Disposition: HOME/ ROUTINE Disposition Time: 19:15 Condition: FAIR Forms: [facility] (Frisian), General Discharge Instructions - Clinical Impression Clinical Impression: Multiple substance abuse - Scribe Statement The provider has reviewed the documentation as recorded by the Scribe (Isra Rangel) Provider Attestation: All medical record entries made by the Scribe were at my direction and personally dictated by me. I have reviewed the chart and agree that the record accurately reflects my personal performance of the history, physical exam, medical decision making, and the department course for this patient. I have also personally directed, reviewed, and agree with the discharge instructions and disposition.
[2018-05-02 22:50] VITALS: TEMP 98.2
[2018-05-03 05:20] VITALS: BP 128/74; PULSE 75; RESP 18; O2SAT 99
== END 2018-05-03 05:20 | disposition home or self-care (01) ==
LOC: C.ER 17:37
DX: F19.10 Other psychoactive substance abuse, uncomplicated (principal); I10 Essential (primary) hypertension; F20.9 Schizophrenia, unspecified; Z72.0 Tobacco use

== ENCOUNTER 2018-05-10 00:58 | Emergency (ER) | payer MEDICAID ==
[2018-05-10 00:58] VITALS: BMI 25.0
--- NOTE | 2018-05-10 01:05 | C.PDOC ---
History Of Present Illness 42 year old male presents to the ER with acute ETOH intoxication, requesting a place to stay. Denies physical complaints at this time. Time Seen by Provider: 05/10/18 01:04 History Per: Patient History/Exam Limitations: no limitations Onset/Duration Of Symptoms: Hrs Current Symptoms Are (Timing): Still Present Suicide/Self Injury Attempted (Context): None Modifying Factor(s): Alcohol Severity: None Pain Scale Rating Of: 0 Associated Symptoms: denies: Depression, Suicidal Thoughts Involuntary Hold By: None Recent travel outside of the [place]: No Past Medical History Reviewed: Historical Data, Nursing Documentation, Vital Signs Vital Signs: Last Vital Signs Temp 98.6 F 05/10/18 01:14 Pulse 81 05/10/18 01:14 Resp 16 05/10/18 01:14 BP 152/89 H 05/10/18 01:14 Pulse Ox 100 05/10/18 01:14 - Medical History PMH: Anxiety, Bipolar Disorder, Depression, HTN, Personality Disorder, Pneumonia , Schizophrenia, Seizures Denies: Diabetes, Hepatitis, HIV, Chronic Kidney Disease, Sexually Transmitted Disease - [facility] Procedures ALCOHOL DETOXIFICATION (10/23/14) CENTRAL VENOUS CATHETER PLACEMENT WITH GUIDANCE (08/27/14) CLOSURE SKIN & SUBCUTANEOUS NEC (01/02/14) DETOXIFICATION SERVICES FOR SUBSTANCE ABUSE TREATMENT (11/08/17) DPT ADMINISTRATION (08/11/14) GROUP CONTINUOUS PICKLING LINE PICKLER HELPER FOR SUBSTANCE ABUSE TREATMENT, PSYCHOEDUCATION (11/08/17) GROUP CONTINUOUS PICKLING LINE PICKLER HELPER FOR SUBSTANCE ABUSE, COGNITIVE BEHAVIORAL (11/08/17) GROUP PSYCHOTHERAPY (08/07/17) INDIV PSYCHOTHERAPY FOR SUBSTANCE ABUSE TREATMENT, SUPPORT (11/08/17) INDIV PSYCHOTHERAPY FOR SUBSTANCE ABUSE, COGNITIV BEHAVIORAL (11/08/17) INDIV PSYCHOTHERAPY FOR SUBSTANCE ABUSE, PSYCHOEDUCATION (11/08/17) INDIVID PSYCHOTHERAP NEC (12/17/14) INDIVIDUAL PSYCHOTHERAPY, COGNITIVE-BEHAVIORAL (06/03/17) INDIVIDUAL PSYCHOTHERAPY, SUPPORTIVE (08/07/17) INJECT/INFUSE NEC (05/27/13) MEDICATION MANAGEMENT (08/07/17) MEDS MGMT FOR SUBSTANCE ABUSE TREATMENT, OTH REPL MED (08/07/17) OTHER GROUP THERAPY (04/04/14) PSYCHIAT DRUG THERAP NEC (12/17/14) VENOUS PUNCTURE NEC (05/27/13) Family History: States: No Known Family Hx - Social History Hx Tobacco Use: Yes Hx Alcohol Use: No Hx Substance Use: Yes - Immunization History Hx Tetanus Toxoid Vaccination: No Hx Influenza Vaccination: Yes Hx Pneumococcal Vaccination: No Review Of Systems Constitutional: Negative for: Fever, Chills Cardiovascular: Negative for: Chest Pain, Palpitations Respiratory: Negative for: Cough, Shortness of Breath Gastrointestinal: Negative for: Nausea, Vomiting Neurological: Negative for: Weakness, Numbness Physical Exam - Physical Exam Appears: Non-toxic, Other (ETOH on breath, no sign of injury) Skin: Warm, Dry Head: Normacephalic Oral Mucosa: Moist Chest: Symmetrical, No Tenderness Cardiovascular: Rhythm Regular Respiratory: No Rales, No Rhonchi, No Wheezing Gastrointestinal/Abdominal: Soft, No Tenderness Extremity: Normal ROM Pulses: Left Radial: Normal, Right Radial: Normal Neurological/Psych: Oriented x3 Disposition Counseled Patient/Family Regarding: Studies Performed, Diagnosis, Need For Followup - Disposition Referrals: [facility] [Outside] Disposition: HOME/ ROUTINE Disposition Time: 01:05 Condition: FAIR Instructions: Polysubstance Abuse (DC) - Clinical Impression Clinical Impression: Multiple substance abuse - Scribe Statement The provider has reviewed the documentation as recorded by the Scribe [address] All medical record entries made by the Scribe were at my direction and personally dictated by me. I have reviewed the chart and agree that the record accurately reflects my personal performance of the history, physical exam, medical decision making, and the department course for this patient. I have also personally directed, reviewed, and agree with the discharge instructions and disposition.
[2018-05-10 01:22] VITALS: TEMP 98.6
[2018-05-10 05:34] VITALS: BP 130/80; PULSE 70; RESP 14; O2SAT 96
== END 2018-05-10 05:35 | disposition home or self-care (01) ==
LOC: C.ER 00:58
DX: F19.10 Other psychoactive substance abuse, uncomplicated (principal); F20.9 Schizophrenia, unspecified; I10 Essential (primary) hypertension

== ENCOUNTER 2018-05-24 01:32 | Emergency (ER) | payer MEDICAID ==
[2018-05-24 01:32] VITALS: BMI 25.0
[2018-05-24 01:40] VITALS: BP 121/82; PULSE 76; RESP 16; TEMP 98.8; O2SAT 97
--- NOTE | 2018-05-24 02:19 | C.PDOC ---
History Of Present Illness 42 year old male presents to the ED requesting his seizure medicine. Patient states he lost his medications yesterday and is also requesting for a place to sleep. <Claire Gagnon - Last Filed: 05/24/18 05:23> History Per: Patient History/Exam Limitations: no limitations <Claire Gagnon - Last Filed: 05/24/18 05:23> <Jg Singh - Last Filed: 05/24/18 19:16> Time Seen by Provider: 05/24/18 01:42 Chief Complaint (Nursing): Substance Abuse Past Medical History Reviewed: Historical Data, Nursing Documentation, Vital Signs Vital Signs: Last Vital Signs Temp 98.8 F 05/24/18 01:37 Pulse 76 05/24/18 01:37 Resp 16 05/24/18 01:37 BP 121/82 05/24/18 01:37 Pulse Ox 97 05/24/18 01:37 - Medical History PMH: Anxiety, Bipolar Disorder, Depression, Fractures, HTN, Personality Disorder, Pneumonia, Schizophrenia, Seizures Denies: Diabetes, Hepatitis, HIV, Chronic Kidney Disease, Sexually Transmitted Disease - [facility] Procedures ALCOHOL DETOXIFICATION (10/23/14) CENTRAL VENOUS CATHETER PLACEMENT WITH GUIDANCE (08/27/14) CLOSURE SKIN & SUBCUTANEOUS NEC (01/02/14) DETOXIFICATION SERVICES FOR SUBSTANCE ABUSE TREATMENT (11/08/17) DPT ADMINISTRATION (08/11/14) GROUP SENIOR SALES CONSULTANT FOR SUBSTANCE ABUSE TREATMENT, PSYCHOEDUCATION (11/08/17) GROUP SENIOR SALES CONSULTANT FOR SUBSTANCE ABUSE, COGNITIVE BEHAVIORAL (11/08/17) GROUP PSYCHOTHERAPY (08/07/17) INDIV PSYCHOTHERAPY FOR SUBSTANCE ABUSE TREATMENT, SUPPORT (11/08/17) INDIV PSYCHOTHERAPY FOR SUBSTANCE ABUSE, COGNITIV BEHAVIORAL (11/08/17) INDIV PSYCHOTHERAPY FOR SUBSTANCE ABUSE, PSYCHOEDUCATION (11/08/17) INDIVID PSYCHOTHERAP NEC (12/17/14) INDIVIDUAL PSYCHOTHERAPY, COGNITIVE-BEHAVIORAL (06/03/17) INDIVIDUAL PSYCHOTHERAPY, SUPPORTIVE (08/07/17) INJECT/INFUSE NEC (05/27/13) MEDICATION MANAGEMENT (08/07/17) MEDS MGMT FOR SUBSTANCE ABUSE TREATMENT, OTH REPL MED (08/07/17) OTHER GROUP THERAPY (04/04/14) PSYCHIAT DRUG THERAP NEC (12/17/14) VENOUS PUNCTURE NEC (05/27/13) Family History: States: No Known Family Hx - Social History Hx Tobacco Use: Yes Hx Alcohol Use: No Hx Substance Use: Yes - Immunization History Hx Tetanus Toxoid Vaccination: No Hx Influenza Vaccination: Yes Hx Pneumococcal Vaccination: No <Claire Gagnon - Last Filed: 05/24/18 05:23> Vital Signs: Last Vital Signs Temp 98.8 F 05/24/18 01:37 Pulse 76 05/24/18 01:37 Resp 16 05/24/18 05:48 BP 121/82 05/24/18 01:37 Pulse Ox 97 05/24/18 05:24 - [facility] Procedures ALCOHOL DETOXIFICATION (10/23/14) CENTRAL VENOUS CATHETER PLACEMENT WITH GUIDANCE (08/27/14) CLOSURE SKIN & SUBCUTANEOUS NEC (01/02/14) DETOXIFICATION SERVICES FOR SUBSTANCE ABUSE TREATMENT (11/08/17) DPT ADMINISTRATION (08/11/14) GROUP SENIOR SALES CONSULTANT FOR SUBSTANCE ABUSE TREATMENT, PSYCHOEDUCATION (11/08/17) GROUP SENIOR SALES CONSULTANT FOR SUBSTANCE ABUSE, COGNITIVE BEHAVIORAL (11/08/17) GROUP PSYCHOTHERAPY (08/07/17) INDIV PSYCHOTHERAPY FOR SUBSTANCE ABUSE TREATMENT, SUPPORT (11/08/17) INDIV PSYCHOTHERAPY FOR SUBSTANCE ABUSE, COGNITIV BEHAVIORAL (11/08/17) INDIV PSYCHOTHERAPY FOR SUBSTANCE ABUSE, PSYCHOEDUCATION (11/08/17) INDIVID PSYCHOTHERAP NEC (12/17/14) INDIVIDUAL PSYCHOTHERAPY, COGNITIVE-BEHAVIORAL (06/03/17) INDIVIDUAL PSYCHOTHERAPY, SUPPORTIVE (08/07/17) INJECT/INFUSE NEC (05/27/13) MEDICATION MANAGEMENT (08/07/17) MEDS MGMT FOR SUBSTANCE ABUSE TREATMENT, OTH REPL MED (08/07/17) OTHER GROUP THERAPY (04/04/14) PSYCHIAT DRUG THERAP NEC (12/17/14) VENOUS PUNCTURE NEC (05/27/13) <Jg Singh - Last Filed: 05/24/18 19:16> Review Of Systems Except As Marked, All Systems Reviewed And Found Negative. Constitutional: Negative for: Fever, Chills Cardiovascular: Negative for: Chest Pain Respiratory: Negative for: Shortness of Breath Neurological: Negative for: Weakness, Numbness <Claire Gagnon - Last Filed: 05/24/18 05:23> Physical Exam - Physical Exam Appears: Well, Non-toxic, No Acute Distress Skin: Warm, Dry Head: Atraumatic, Normacephalic Eye(s): bilateral: Normal Inspection, EOMI Nose: Normal Oral Mucosa: Moist Neck: Supple Cardiovascular: Rhythm Regular Respiratory: Normal Breath Sounds, No Rales, No Rhonchi, No Wheezing Neurological/Psych: Oriented x3, Normal Speech Gait: Steady <Claire Gagnon - Last Filed: 05/24/18 05:23> ED Course And Treatment O2 Sat by Pulse Oximetry: 97 (RA) Pulse Ox Interpretation: Normal <Claire Gagnon - Last Filed: 05/24/18 05:23> Disposition - Disposition Disposition Time: 05:23 <JuanaeugenioClaire pimentel Last Filed: 05/24/18 05:23> Counseled Patient/Family Regarding: Studies Performed, Diagnosis <Jg Singh - Last Filed: 05/24/18 19:16> - Disposition Disposition: HOME/ ROUTINE Condition: FAIR Additional Instructions: Follow up with [facility] after discharge. Instructions: Seizures, Adult (DC) Forms: [facility] (Macanese) - Clinical Impression Clinical Impression: Medication refill - PA / COOK CHILI / Resident Statement MD/DO has reviewed & agrees with the documentation as recorded. - Scribe Statement The provider has reviewed the documentation as recorded by the Scribe Concepción Mcnulty All medical record entries made by the Scribe were at my direction and personally dictated by me. I have reviewed the chart and agree that the record accurately reflects my personal performance of the history, physical exam, medical decision making, and the department course for this patient. I have also personally directed, reviewed, and agree with the discharge instructions and d isposition. <LeonidesharshadmargaritoClaire - Last Filed: 05/24/18 05:23>
== END 2018-05-24 05:49 | disposition home or self-care (01) ==
LOC: C.ER 01:32
DX: Z76.0 Encounter for issue of repeat prescription (principal); I10 Essential (primary) hypertension; F20.9 Schizophrenia, unspecified; Z72.0 Tobacco use

== ENCOUNTER 2018-05-27 00:18 | Emergency (ER) | payer MEDICAID ==
[2018-05-27 00:18] VITALS: BMI 25.0
[2018-05-27 00:30] VITALS: BP 156/90; PULSE 88; RESP 18; TEMP 98; O2SAT 96
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
== END 2018-05-27 01:09 | disposition home or self-care (01) ==
LOC: SUPCPDRO 00:18 → C.ER 00:18
DX: Z13.9 Encounter for screening, unspecified (principal); F20.9 Schizophrenia, unspecified; I10 Essential (primary) hypertension

== ENCOUNTER 2018-06-06 22:08 | Emergency (ER) | payer MEDICAID ==
[2018-06-06 22:17] VITALS: BMI 25.8
[2018-06-06 22:23] VITALS: BP 124/79; PULSE 104; TEMP 99.1; O2SAT 98
--- NOTE | 2018-06-06 22:55 | C.PDOC ---
History Of Present Illness Patient presents to the ER for a wound check. Denies active bleeding, discharge, or fever. Time Seen by Provider: 06/06/18 22:54 Chief Complaint (Nursing): Wound Check History Per: Patient History/Exam Limitations: no limitations Onset/Duration Of Symptoms: Days Ago, Laceration Current Symptoms Are (Timing): Better Location Of Injury: Right: Forearm Recent travel outside of the [place]: No Past Medical History Reviewed: Historical Data, Nursing Documentation, Vital Signs Vital Signs: Last Vital Signs Temp 99.1 F 06/06/18 22:17 Pulse 104 H 06/06/18 22:17 Resp 18 06/06/18 22:17 BP 124/79 06/06/18 22:17 Pulse Ox 98 06/06/18 22:17 - Medical History PMH: Anxiety, Bipolar Disorder, Depression, Fractures, HTN, Personality Disorder, Pneumonia, Schizophrenia, Seizures Denies: Diabetes, Hepatitis, HIV, Chronic Kidney Disease, Sexually Transmitted Disease - [facility] Procedures ALCOHOL DETOXIFICATION (10/23/14) CENTRAL VENOUS CATHETER PLACEMENT WITH GUIDANCE (08/27/14) CLOSURE SKIN & SUBCUTANEOUS NEC (01/02/14) DETOXIFICATION SERVICES FOR SUBSTANCE ABUSE TREATMENT (11/08/17) DPT ADMINISTRATION (08/11/14) GROUP BICYCLE COURIER FOR SUBSTANCE ABUSE TREATMENT, PSYCHOEDUCATION (11/08/17) GROUP BICYCLE COURIER FOR SUBSTANCE ABUSE, COGNITIVE BEHAVIORAL (11/08/17) GROUP PSYCHOTHERAPY (08/07/17) INDIV PSYCHOTHERAPY FOR SUBSTANCE ABUSE TREATMENT, SUPPORT (11/08/17) INDIV PSYCHOTHERAPY FOR SUBSTANCE ABUSE, COGNITIV BEHAVIORAL (11/08/17) INDIV PSYCHOTHERAPY FOR SUBSTANCE ABUSE, PSYCHOEDUCATION (11/08/17) INDIVID PSYCHOTHERAP NEC (12/17/14) INDIVIDUAL PSYCHOTHERAPY, COGNITIVE-BEHAVIORAL (06/03/17) INDIVIDUAL PSYCHOTHERAPY, SUPPORTIVE (08/07/17) INJECT/INFUSE NEC (05/27/13) MEDICATION MANAGEMENT (08/07/17) MEDS MGMT FOR SUBSTANCE ABUSE TREATMENT, OTH REPL MED (08/07/17) OTHER GROUP THERAPY (04/04/14) PSYCHIAT DRUG THERAP NEC (12/17/14) VENOUS PUNCTURE NEC (05/27/13) Family History: States: No Known Family Hx - Social History Hx Tobacco Use: Yes Hx Alcohol Use: Yes Hx Substance Use: Yes - Immunization History Hx Tetanus Toxoid Vaccination: No Hx Influenza Vaccination: Yes Hx Pneumococcal Vaccination: No Review Of Systems Constitutional: Negative for: Fever, Chills Skin: Positive for: Other (Healing laceration to right forearm with sutures intact) Neurological: Negative for: Weakness, Numbness Physical Exam - Physical Exam Appears: Non-toxic Skin: Warm, Dry Head: Normacephalic Extremity: Capillary Refill (<2 seconds), Other (Large laceration to right forearm, sutures intact, no active bleeding. Chronic right arm and hand edema.) Pulses: Left Radial: Normal, Right Radial: Normal Neurological/Psych: Oriented x3 ED Course And Treatment O2 Sat by Pulse Oximetry: 98 (Room air) Pulse Ox Interpretation: Normal Progress Note: Tylenol administered. Reevaluation Time: 05:37 Reassessment Condition: Improved Disposition Counseled Patient/Family Regarding: Studies Performed, Diagnosis, Need For Followup - Disposition Referrals: [facility] [Outside] Disposition: HOME/ ROUTINE Disposition Time: 22:55 Condition: FAIR Additional Instructions: Please return if symptoms recur Instructions: Wound Care (DC) Forms: [facility] (Wolof) - Clinical Impression Clinical Impression: Visit for wound check - Scribe Statement The provider has reviewed the documentation as recorded by the Scribe Gorge [address] All medical record entries made by the Scribe were at my direction and perso jeffry dictated by me. I have reviewed the chart and agree that the record accurately reflects my personal performance of the history, physical exam, medical decision making, and the department course for this patient. I have also personally directed, reviewed, and agree with the discharge instructions and disposition.
[2018-06-06 23:10] VITALS: RESP 16
== END 2018-06-06 23:10 | disposition home or self-care (01) ==
LOC: C.ER 22:08
DX: Z48.00 Encounter for change or removal of nonsurgical wound dressing (principal); I10 Essential (primary) hypertension; F20.9 Schizophrenia, unspecified; Z87.891 Personal history of nicotine dependence

== ENCOUNTER 2018-11-21 22:51 | Inpatient (IN) | payer MEDICAID ==
[2018-11-21 22:53] VITALS: BMI 24.3
--- NOTE | 2018-11-21 23:14 | C.PDOC ---
History Of Present Illness 43 y/o male pt with hx of anemia, anxiety, bipolar disorder, depression, schizophrenia, and seizure presents to the ER c/o substance abuse and depression. Pt notes she uses heroin all day and has thoughts about cutting himself. Pt also notes he was drinking alcohol. He denies any fall, trauma or actual self harm attempts today. Time Seen by Provider: 11/21/18 23:14 Chief Complaint (Nursing): Substance Abuse History Per: Patient History/Exam Limitations: no limitations Onset/Duration Of Symptoms: Days Current Symptoms Are (Timing): Still Present Modifying Factor(s): Alcohol, Other (heroin) Associated Symptoms: Depression Past Medical History Reviewed: Historical Data, Nursing Documentation, Vital Signs Vital Signs: Last Vital Signs Temp 98.2 F 11/21/18 23:01 Pulse 94 H 11/21/18 23:01 Resp 20 11/21/18 23:01 BP 132/81 11/21/18 23:01 Pulse Ox 96 11/21/18 23:01 - Medical History PMH: Anemia, Anxiety, Bipolar Disorder, Depression, Fractures, HTN, Personality Disorder, Pneumonia, Schizophrenia, Seizures - [facility] Procedures ALCOHOL DETOXIFICATION (10/23/14) CENTRAL VENOUS CATHETER PLACEMENT WITH GUIDANCE (08/27/14) CLOSURE SKIN & SUBCUTANEOUS NEC (01/02/14) DETOXIFICATION SERVICES FOR SUBSTANCE ABUSE TREATMENT (11/08/17) DPT ADMINISTRATION (08/11/14) GROUP UNIVERSAL WINDING MACHINE OPERATOR FOR SUBSTANCE ABUSE TREATMENT, PSYCHOEDUCATION (11/08/17) GROUP UNIVERSAL WINDING MACHINE OPERATOR FOR SUBSTANCE ABUSE, COGNITIVE BEHAVIORAL (11/08/17) GROUP PSYCHOTHERAPY (08/07/17) INDIV PSYCHOTHERAPY FOR SUBSTANCE ABUSE TREATMENT, SUPPORT (11/08/17) INDIV PSYCHOTHERAPY FOR SUBSTANCE ABUSE, COGNITIV BEHAVIORAL (11/08/17) INDIV PSYCHOTHERAPY FOR SUBSTANCE ABUSE, PSYCHOEDUCATION (11/08/17) INDIVID PSYCHOTHERAP NEC (12/17/14) INDIVIDUAL PSYCHOTHERAPY, COGNITIVE-BEHAVIORAL (06/03/17) INDIVIDUAL PSYCHOTHERAPY, SUPPORTIVE (08/07/17) INJECT/INFUSE NEC (05/27/13) MEDICATION MANAGEMENT (08/07/17) MEDS MGMT FOR SUBSTANCE ABUSE TREATMENT, OTH REPL MED (08/07/17) OTHER GROUP THERAPY (04/04/14) PSYCHIAT DRUG THERAP NEC (12/17/14) VENOUS PUNCTURE NEC (05/27/13) Family History: States: Unknown Family Hx - Social History Hx Tobacco Use: Yes Hx Alcohol Use: Yes Hx Substance Use: Yes - Immunization History Hx Tetanus Toxoid Vaccination: No Hx Influenza Vaccination: No Hx Pneumococcal Vaccination: No Review Of Systems Constitutional: Positive for: Other (substance abuse ). Negative for: Fever, Chills Eyes: Negative for: Pain, Vision Change ENT: Negative for: Ear Pain, Ear Discharge Cardiovascular: Negative for: Chest Pain, Palpitations Respiratory: Negative for: Cough, Shortness of Breath Neurological: Negative for: Weakness, Numbness Psych: Positive for: Depression, Other (self-harm thoughts ). Negative for: Suicidal ideation Physical Exam - Physical Exam Appears: Non-toxic, No Acute Distress, Other (disheveled and bad affect ) Skin: Warm, Dry Head: Atraumatic, Normacephalic Eye(s): bilateral: Normal Inspection, PERRL, EOMI Oral Mucosa: Moist, Other (alcohol on breath) Neck: Trachea Midline, Supple, Other (no meningeal signs, negative for kernig's and brudzinski's) Chest: Symmetrical Cardiovascular: Rhythm Regular, No Friction Rub Respiratory: No Rales, No Rhonchi, No Wheezing Gastrointestinal/Abdominal: Soft, No Tenderness Extremity: Bilateral: Atraumatic, Normal Color And Temperature, Normal ROM Pulses: Left Dorsalis Pedis: Normal (2+), Right Dorsalis Pedis: Normal (2+) Neurological/Psych: Oriented x3, Normal Speech ED Course And Treatment - Laboratory Results Result Diagrams: 11/22/18 00:09 11/22/18 00:09 O2 Sat by Pulse Oximetry: 96 (RA) Pulse Ox Interpretation: Normal Medical Decision Making Medical Decision Making: plans: -- chem labs -- blood work -- Crisis eval Si w/ out attempt [id number] medically clear pending crisis given home anti-epileptics [id number] Dr. Babcock accepts for depression, opiates abuse pt in NAD, agreeable to plan Disposition - Disposition Disposition Time: 02:27 Condition: STABLE Forms: [facility] (Trinidadian) - Clinical Impression Clinical Impression: Depression - Scribe Statement The provider has reviewed the documentation as recorded by the Scribe Smith Do Provider Attestation: All medical record entries made by the Scribe were at my direction and personally dictated by me. I have reviewed the chart and agree that the record accurately reflects my personal performance of the history, physical exam, medical decision making, and the department course for this patient. I have also personally directed, reviewed, and agree with the discharge instructions and disposition.
[2018-11-22 00:33] LABS: ACETAMINOPHEN < 10.0 ug/mL (10.0-30.0); ALB/GLOB RATIO 1.3 (1.0-2.1); ALBUMIN 4.9 g/dL (3.5-5.0); CALCIUM 9.7 mg/dl (8.6-10.4); SALICYLATE < 1.0 {null, mg/dL 1}
[2018-11-22 00:50] LABS: BASO % 0.4 % (0.0-2.0); EOS # 0.1 K/uL (0.0-0.7); EOS % 1.6 % (0.0-4.0); LYMPH # 2.7 K/uL (1.0-4.3); LYMPH % 35.6 % (20.0-40.0); MEAN CORPUSCULAR HEMOGLOBIN 21.6 pg (27.0-31.0); MEAN CORPUSCULAR HGB CONC 30.3 g/dL (33.0-37.0); MEAN PLATELET VOLUME 9.1 fL (7.2-11.7); MONO # 0.6 K/uL (0.0-0.8); MONO % 7.5 % (0.0-10.0); NEUT # 4.2 K/uL (1.8-7.0); NEUT % 54.9 % (50.0-75.0); NRBC % 0.1 % (0.0-2.0); RBC 5.19 Mil/uL (4.40-5.90); RED CELL DISTRIBUTION WIDTH 20.3 % (11.5-14.5); WHITE BLOOD COUNT 7.6 K/uL (4.8-10.8)
[2018-11-22 01:07] LABS: HEMOGLOBIN 11.2 g/dL (12.0-18.0); MEAN CELL VOLUME 71.4 fL (80.0-94.0)
[2018-11-22 01:41] LABS: URINE BILIRUBIN NEGATIVE (NEGATIVE); URINE BLOOD NEGATIVE (NEGATIVE); URINE CLARITY Clear (Clear); URINE COLOR Yellow (YELLOW); URINE GLUCOSE (UA) NORMAL (Normal); URINE LEUKOCYTE ESTERASE NEG Leu/uL (Negative); URINE PROTEIN NEGATIVE (NEGATIVE)
[2018-11-22 01:51] LABS: BARBITURATES, UR NEGATIVE (NEGATIVE); BENZODIAZEPINES, UR NEGATIVE (NEGATIVE); PHENCYCLIDINE, UR NEGATIVE (NEGATIVE)
[2018-11-22 01:53] LABS: OPIATES, UR POSITIVE (NEGATIVE)
[2018-11-22] MEDS ORDERED: Divalproex 500 mg DR Tab PO ONE (02:06)
[2018-11-22] MEDS ORDERED: Divalproex 500 mg ER Tab PO STA (02:06)
[2018-11-22 03:18] VITALS: O2SAT 98
--- NOTE | 2018-11-22 04:30 | PCM.BM ---
<Berto Bailey - Last Filed: 11/22/18 04:27> Treatment Plan Problems - Problems identified on initial assessmt Ineffective Impulse Control Date Initiated: 11/22/18 Time Initiated: 03:35 Assessment reference: NA Status: Active Medication Nonadherence Date Initiated: 11/22/18 Time Initiated: 03:35 Assessment reference: NA Status: Active Treatment assets and liabiliti Patient Assests: negotiates basic needs Patient Liabilities: substance abuse (Cocaine, Opiates, Alcohol), medical problems (Seizures, TBI), imparied memory - Milieu Protocol Maintain good personal hygiene: daily Encourage regular showers, daily Remind patient to perform daily oral care, daily Assist patient to perform ADL's Conduct patient checks and document Observation sheet: Q15 minutes Maintain personal safety: every shift Educate patient to report safety concerns to staff, every shift Monitor environment for contraband/sharps Medication safety: Monitor for expected outcome, potential side effects: every shift, Assess barriers to learning: every shift, Assess readiness for medication education: every shift <Shaylee Billingsley - Last Filed: 11/24/18 12:47> Family Contact Family involvement: Patient does not wish Family/SO involvement Family contact: Patient declines to allow family contact at present - Goals for Treatment Patient goals for treatment: "I want to go to rehab program." Discharge/Continuing Care - Education Needs Education Needs: Patient Medication, Patient Diagnosis/Disease Process, Patient Coping Skills, Patient Placement options, Patient Community resources - Discharge Discharge Criteria: Free of Suicidal thoughts, Free of agitation, Normal sleep pattern, Ability to care for self, No longer exhibiting s/s of withdrawal, Reduction of target symptoms Discharge to:: Substance Abuse Rehab - Treatment Team Participation Discussed with Family/SO: No Was Patient/Family/SO present at Treatment Team Meeting: Yes <Gómez Reno - Last Filed: 11/24/18 13:06> - Diagnosis (1) Schizophrenia Status: Acute Interventions: 11/24/18 12:52 * Assess/adjust medications daily and /or as needed * See patient on an individual basis 7x/week to assess status of hallucinations * Discuss risks, benefits, side effects and alternatives of medications * (2) Drug dependence Status: Acute Interventions: 11/24/18 13:06 * Assess 7x/week regarding severity of withdrawal * Educate regarding risks, benefits, side effects and alternatives of medications * Use Motivational Interviewing for abstinence * Use CBT for relapse prevention * Medication management for withdrawal symptoms * Encourage medication assisted treatment *
[2018-11-22 06:45] VITALS: TEMP 97.5
[2018-11-24] MEDS ORDERED: Aluminum Hydroxide/Magnesium Hydroxide Susp (30 mL) PO STA (03:05)
[2018-11-24 08:30] VITALS: BP 129/82; PULSE 81; RESP 20
--- NOTE | 2018-11-24 12:52 | PCM.PYCHPN ---
Psychiatric Progress Note - Psychiatric Progress Note Patient seen today, length of contact: 15 min Medication Change: Yes Medical Record Reviewed: Yes Mental Status Examination - Cognitive Function Orientation: Person, Place, Situation, Time Memory: Intact Attention: WNL Concentration: Poor Association: Loose Fund of Knowledge: Poor - Mood Mood: Depressed, Anxious - Affect Affect: Constricted - Speech Speech: Pressured - Formal Thought Process Formal Thought Process: Hallucinations, Delusions, Paranoia, Loosening of a ssociations - Suicidal Ideation Suicidal Ideation: No - Homicidal Ideation Homicidal Ideation: No Goal/Treatment Plan - Goal/Treatment Plan Need for Continued Stay: Remain at risks for inpatient hospitalization
--- NOTE | 2018-11-24 13:06 | PCM.PYCHDC ---
Mental Status Examination - Mental Status Examination Orientation: Person, Place, Situation, Time Discharge Summary - Discharge Note Consultations:: List each consultation separately and include: 1. Reason for request. 2. Findings. 3. Follow-up Summary of Hospital Course include:: 1. Description of specific treatment plan utilized for patients during their course of treatmen. 2. Summarize the time- course for resolution of acute symptoms and/or regressed behaviors. 3. Describe issues identified and worked on during hospitalization. 4. Describe medication utilized. 5. Describe medical problems identified and treated. 6. Reassessment of suicide risk - Diagnosis (1) Schizophrenia Current Visit: No Status: Acute (2) Drug dependence Current Visit: No Status: Acute - Final Diagnosis (DSM 5) Condition upon Discharge: STABLE Disposition: AGAINST MEDICAL ADVICE
== END 2018-11-24 12:53 | disposition left against medical advice (07) | DRG 430 ==
LOC: C.ER 22:51 → C.5E 11-22 02:28
PROVIDERS: ADMIT Psychiatry & Neurology Psychiatry; ATTEND Psychiatry & Neurology Psychiatry
PROC: GZ3ZZZZ Medication Management (ICD-10-PCS; principal; 2018-11-22)
PROC: GZ56ZZZ Individual Psychotherapy, Supportive (ICD-10-PCS; 2018-11-22)
DX: F20.9 Schizophrenia, unspecified (principal); F11.20 Opioid dependence, uncomplicated; F31.9 Bipolar disorder, unspecified; F60.9 Personality disorder, unspecified; F17.210 Nicotine dependence, cigarettes, uncomplicated; I10 Essential (primary) hypertension; Z87.01 Personal history of pneumonia (recurrent)

== ENCOUNTER 2019-01-15 01:16 | Emergency (ER) | payer MEDICAID ==
[2019-01-15 01:16] VITALS: BMI 27.3
[2019-01-15 01:37] VITALS: RESP 20
--- NOTE | 2019-01-15 02:02 | C.PDOC ---
History Of Present Illness 43 year old male is brought to the ED by EMS for evaluation of seizure activity. Patient reports he stopped taking his medication today. Patient admits to drinking and feeling depressed. Patient denies SI/HI, hallucinations, other medical complaints at this time. Chief Complaint (Nursing): Medical Clearance History Per: Patient, EMS History/Exam Limitations: intoxication Onset/Duration Of Symptoms: Hrs Current Symptoms Are (Timing): Still Present Recent travel outside of the [place]: No Additional History Per: Patient, EMS Past Medical History Reviewed: Historical Data, Nursing Documentation, Vital Signs Vital Signs: Last Vital Signs Temp 98.6 F 01/15/19 01:21 Pulse 78 01/15/19 01:21 Resp 20 01/15/19 01:21 BP 137/79 01/15/19 01:21 Pulse Ox 98 01/15/19 01:21 Primary Care Provider: Non [facility] Provider, - Medical History PMH: Anemia, Anxiety, Bipolar Disorder, Depression, Fractures, HTN, Personality Disorder (Personality disorer), Pneumonia, Schizophrenia, Seizures Denies: Diabetes, Hepatitis, HIV, Chronic Kidney Disease, Sexually Transmitted Disease Surgical History: No Surg Hx - [facility] ALCOHOL DETOXIFICATION (10/23/14) CENTRAL VENOUS CATHETER PLACEMENT WITH GUIDANCE (08/27/14) CLOSURE SKIN & SUBCUTANEOUS NEC (01/02/14) DETOXIFICATION SERVICES FOR SUBSTANCE ABUSE TREATMENT (11/08/17) DPT ADMINISTRATION (08/11/14) GROUP CAPACITY ANALYST FOR SUBSTANCE ABUSE TREATMENT, PSYCHOEDUCATION (11/08/17) GROUP CAPACITY ANALYST FOR SUBSTANCE ABUSE, COGNITIVE BEHAVIORAL (11/08/17) GROUP PSYCHOTHERAPY (08/07/17) INDIV PSYCHOTHERAPY FOR SUBSTANCE ABUSE TREATMENT, SUPPORT (11/08/17) INDIV PSYCHOTHERAPY FOR SUBSTANCE ABUSE, COGNITIV BEHAVIORAL (11/08/17) INDIV PSYCHOTHERAPY FOR SUBSTANCE ABUSE, PSYCHOEDUCATION (11/08/17) INDIVID PSYCHOTHERAP NEC (12/17/14) INDIVIDUAL PSYCHOTHERAPY, COGNITIVE-BEHAVIORAL (06/03/17) INDIVIDUAL PSYCHOTHERAPY, SUPPORTIVE (11/22/18) INJECT/INFUSE NEC (05/27/13) MEDICATION MANAGEMENT (11/22/18) MEDS MGMT FOR SUBSTANCE ABUSE TREATMENT, OTH REPL MED (08/07/17) OTHER GROUP THERAPY (04/04/14) PSYCHIAT DRUG THERAP NEC (12/17/14) VENOUS PUNCTURE NEC (05/27/13) Family History: States: Unknown Family Hx - Social History Hx Tobacco Use: Yes Hx Alcohol Use: Yes (pt. states, sometimes and he has BAL 26.) Hx Substance Use: Yes - Immunization History Hx Tetanus Toxoid Vaccination: No Hx Influenza Vaccination: No Hx Pneumococcal Vaccination: No Review Of Systems Constitutional: Negative for: Fever, Chills, Weakness Cardiovascular: Negative for: Chest Pain, Palpitations Respiratory: Negative for: Shortness of Breath Gastrointestinal: Negative for: Nausea, Vomiting, Abdominal Pain Skin: Negative for: Rash Psych: Positive for: Depression. Negative for: Suicidal ideation Physical Exam - Physical Exam Appears: Non-toxic, Other (AOB, lethargic) Skin: Normal Color, Warm, Dry Head: Atraumatic, Normacephalic Eye(s): bilateral: Normal Inspection Oral Mucosa: Moist Neck: Normal ROM, Supple Chest: Symmetrical Cardiovascular: Rhythm Regular Respiratory: Normal Breath Sounds, No Rales, No Rhonchi, No Wheezing Gastrointestinal/Abdominal: Soft, No Tenderness, No Guarding, No Rebound Extremity: Bilateral: Atraumatic, Normal Color And Temperature, Normal ROM Neurological/Psych: Oriented x3, Other (lethargic, non focal, easily arousable ) ED Course And Treatment O2 Sat by Pulse Oximetry: 98 (ON RA) Pulse Ox Interpretation: Normal Disposition Counseled Patient/Family Regarding: Diagnosis - Disposition Referrals: [facility] [Outside] Disposition: HOME/ ROUTINE Disposition Time: 05:40 Condition: STABLE Prescriptions: carBAMazepine [TEGretol] 600 mg PO BID #60 tab Instructions: Polysubstance Abuse Forms: [facility] (Nepali) - POA Present On Arrival: None - Clinical Impression Clinical Impression: Substance abuse, Seizure disorder - Scribe Statement The provider has reviewed the documentation as recorded by the Scribe Johny Chávez All medical record entries made by the Scribe were at my direction and personally dictated by me. I have reviewed the chart and agree that the record accurately reflects my personal performance of the history, physical exam, medical decision making, and the department course for this patient. I have also personally directed, reviewed, and agree with the discharge instructions and disposition.
[2019-01-15 05:14] VITALS: BP 127/69; PULSE 76; TEMP 98.3; O2SAT 100
== END 2019-01-15 05:25 | disposition home or self-care (01) ==
LOC: C.ER 01:16
DX: G40.909 Epilepsy, unspecified, not intractable, without status epilepticus (principal); F19.10 Other psychoactive substance abuse, uncomplicated

== ENCOUNTER 2019-01-15 23:41 | Emergency (ER) | payer MEDICAID | END 2019-01-16 00:06 | disposition home or self-care (01) | LOC: C.ER 01-16 00:06 ==